=== PATIENT | male | born 1995 | race Caucasian/White ===

== ENCOUNTER 2019-09-26 12:09 | Emergency (ER) | payer MEDICAID, SELFPAY ==
[2019-09-26 12:31] VITALS: BP 134/82; PULSE 100; RESP 16; TEMP 36.9; O2SAT 97; BMI 20.6
--- NOTE | 2019-09-26 12:40 | ED_ITS ---
HPI - Psych General: Chief Complaint: Psychiatric Symptoms Stated Complaint: mhe Time Seen by Provider: 09/26/19 12:40 Source: patient Mode of arrival: ambulatory Limitations: no limitations History of Present Illness: HPI Narrative: Patient is a 24-year-old male who presents to ED today with complaints of auditory hallucinations; patient has a history of schizophrenia and states these hallucinations are chronic for him; he describes the hallucinations as chattering and cannot make out anything specific; voices are not telling him to harm himself; he is not suicidal or ho micidal; patient takes he takes Invega daily for the hallucinations; states he sees ANNIE Stephens over at [facility]; patient denies visual hallucinations MD complaint: other (auditory hallucinations ) Onset (ago): unknown (chronic ) Duration: constant Relieving factors: none Exacerbating factors: none Associated psychiatric symptoms: auditory hallucinations Associated symptoms: Reports auditory hallucinations; Deny visual hallucinations, depression, homicidal ideation or suicidal ideation Treatments prior to arrival: none Review of Systems Const: Denies: fever or chills Card: Denies: chest pain Resp: Denies: productive cough GI: Denies: abdominal pain Musc: Denies: neck pain or back pain Skin/Breast: Denies: rash Neuro: Denies: headache Psych: Reports: auditory hallucinations; Denies: anxiety, depression, visual hallucinations, suicidal ideation or homicidal ideation PFS ED PFSH: Statuses (acute, chronic, etc) shown below reflect problem list status as previously entered and may not be historically accurate Social History Smoking and tobacco status: current every day smoker Physical Exam Const: COMMON NORMALS: no apparent distress, average body habitus, oriented x3, healthy appearing, alert and well nourished Resp: COMMON NORMALS: normal respiratory effort and clear to auscultation bi laterally AUSCULTATION: clear to auscultation bilaterally Cardio: COMMON NORMALS: regular rate and regular rhythm RATE: regular rate RHYTHM: regular rhythm Neuro: COMMON NORMALS: oriented x3 SENSORIUM/ORIENTATION: Yes alert Psych: COMMON NORMALS: mental status grossly normal, cooperative, speech normal, activity/motor behavior normal, denies homicidal ideation and denies suicidal ideation APPEARANCE: Yes grossly normal ATTITUDE: Yes calm ACTIVITY/MOTOR BEHAVIOR: Yes appropriate eye contact SPEECH: Yes normal speech Skin: COMMON NORMALS: no rashes or lesions noted GENERAL SKIN EXAM: no rashes or lesions noted MDM - Psych MDM Narrative: Medical decision making narrative: pt is not suicidal or homicidal; voices are not commanding pt; spoke to his [facility] provider and he agrees to call today/tmrw to schedule sooner appointment Discharge Plan Discharge Patient Disposition: Home, Self-Care Clinical Impression: Chronic schizophrenia Condition: Stable Prescriptions: No Action amoxicillin 500 mg Capsule 500 mg PO TID RF: 0 pantoprazole 40 mg Tablet,Delayed Release (Dr/Ec) 40 mg PO DAILY RF: 0 Invega 6 mg Tablet Extended Release 24hr 12 mg PO QAM RF: 0 Discharge Orders: Discharge Order (Routine); Ordered 09/26/19 Ordered By: Tessy Gudino Discharge Diet: Usual diet Discharge Activity: Resume usual activity Activity Restrictions/Additional Instructions: As discussed please call [facility] today or tomorrow to schedule a sooner follow-up visit with your provider. Return to emergency department immediately for suicidal or homicidal thoughts. Discharge Date/Time: 09/26/19 14:30 Coding Level of Care Code ED Educational Institution Curator for Froy Lozano Exam Problem Focused
--- NOTE | 2019-09-26 12:49 | PC.NURSE ---
denies si or hi, is calm and appropriate.
[2019-09-26 14:30] VITALS: PULSE 101; RESP 15; O2SAT 96
--- NOTE | 2019-09-27 13:50 | DCPLANNER ---
credit control manager called to confirm that patient followed up with [facility] as he was told to in discharge. Patient was seen at [facility] today, 09.27.19.
== END 2019-09-26 14:30 | disposition home or self-care (01) ==
PROVIDERS: Emergency Provider Emergency Medicine
DX: F20.89 Other schizophrenia (principal); F17.210 Nicotine dependence, cigarettes, uncomplicated
CPT/HCPCS: 99284

== ENCOUNTER → 2019-11-03 13:41 | Outpatient (BNVA) | payer MEDICAID, SELFPAY | PROVIDERS: PCP Nurse Practitioner; Visit Provider Nurse Practitioner | DX: F20.89 Other schizophrenia (principal) | CPT/HCPCS: 99214 ==

== ENCOUNTER 2019-12-12 16:59 | Emergency (ER) | payer MEDICAID, SELFPAY | END 2019-12-12 19:18 | disposition admitted as inpatient to this hospital (09) | LOC: ER 12-26 09:12 | PROVIDERS: Emergency Provider Nurse Practitioner Family; PCP Nurse Practitioner | DX: F15.20 Other stimulant dependence, uncomplicated (principal); F20.9 Schizophrenia, unspecified; F17.210 Nicotine dependence, cigarettes, uncomplicated | CPT/HCPCS: 12345; 36415; 80053; 80307; 84443; 85025; 99284; 99285 ==

== ENCOUNTER 2019-12-12 16:59 | Inpatient (IN) | payer MEDICAID, SELFPAY ==
[2019-12-12 17:01] VITALS: BP 127/87; PULSE 117; RESP 17; TEMP 36.5; O2SAT 95
--- NOTE | 2019-12-12 17:06 | ED_ITS ---
HPI - Psych General: Chief Complaint: Psychiatric Symptoms Stated Complaint: 96 hour hold Time Seen by Provider: 12/12/19 17:06 Source: patient Mode of arrival: ambulatory Limitations: no limitations History of Present Illness: HPI Narrative: 24-year-old male patient was brought in by Manager Transfer's department under a 96-hour hold. Affidavits are noted from the family that patient has been threatening towards them and acting out, making them feel unsafe in their home. 96-hour hold is signed by the lithographers printer. Patient reports that he has been not taking his medicine as he should be which includes his Zyprexa. Patient reports that he has had increased voice hallucinations which he describes as chattering. Patient has a history of chronic schizophrenia and substance abuse, methamphetamines. Patient denies recent use of methamphetamines. Patient denies any other drug or alcohol use. Patient is cooperative. Patient is hyperactive. Patient appears in no pain. 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, unspecified Other stimulant dependence, uncomplicated Social History (Updated 09/27/19 @ 12:26 by Divine Olvera LPN) Smoking and tobacco status: current every day smoker cigarettes Packs smoked per day: 1 Smoking risk assessment/counseling performed?: Yes Tobacco counseling given: counseling >3 minutes Physical Exam Const: COMMON NORMALS: no apparent distress and oriented x3 GENERAL APPEARANCE: cooperative HENMT: COMMON NORMALS: normocephalic, external ears normal, EAC's normal, TM's normal bilaterally and external nose normal HEAD & SCALP: normal to inspection and normocephalic FACE & SINUS: normal facial exam NOSE: external nose normal GENERAL EAR: hearing not grossly impaired EXTERNAL EAR: Yes external ears normal EXTERNAL AUDITORY CANAL: EAC's normal TYMPANIC MEMBRANE: TM's normal bilaterally MOUTH: oral and palatal mucosa abnormal (dry in appearance) THROAT: posterior oropharynx normal Eye: COMMON NORMALS: PERRL and EOMs intact bilaterally PUPIL: Yes PERRL Neck/C-Spine: COMMON NORMALS: full ROM and no lymphadenopathy Lymph: LYMPHATIC: no lymphedema noted Chest: COMMONS NORMALS: inspection of chest normal and palpation of chest normal Resp: COMMON NORMALS: normal respiratory effort and clear to auscultation bilaterally AUSCULTATION: clear to auscultation bilaterally Cardio: COMMON NORMALS: regular rate and regular rhythm RATE: regular rate RHYTHM: regular rhythm GI: COMMON NORMALS: normal to inspection, nondistended, normoactive bowel sounds and non-tender : COMMON NORMALS: Yes no CVA tenderness BLADDER/KIDNEY EXAM: Yes no CVA tenderness Back/Pelvis: COMMON NORMALS: no CVA tenderness and thoracic and lumbar spine normal to inspection Extremity: COMMON NORMALS: normal to inspection GENERAL: No edema Neuro: COMMON NORMALS: oriented x3, moves all extremities and no focal motor deficits Psych: COMMON NORMALS: mental status grossly normal and cooperative Skin: COMMON NORMALS: no rashes or lesions noted GENERAL SKIN EXAM: no rashes or lesions noted MDM - Psych MDM Narrative: Medical decision making narrative: Patient come in by Manager Transfer's department with a 96-hour hold order. Patient states he has not been taking his med routinely and has been hearing more auditory hallucinations. Patient reports taking his Zyprexa this morning but it has not made much of a change in the chattering he has heard. Patient is also as reported by his family on affidavits has been threatening towards him and they feel unsafe in their home. Patient denies any recent drug use but has a history of methamphetamine use. Differential diagnosis includes schizophrenia, acute psychosis, homicidal thoughts, major depressive disorder, substance abuse. Laboratory values were may be suggestive for some mild dehydration but other than that patient labs were fairly normal. Thyroid level was normal. EtOH salicylates and acetaminophen were all normal. Reviewed case with Dr. Mendoza, psychiatrist, he agreed to admission to hospital for further evaluation and treatment. Patient for the safety of others needs admission to the hospital and for medica tion management. Lab Data: Labs: Lab Results 12/12/19 12/12/19 Range/Units 17:28 17:28 WBC 11.5 H (4.0-10.0) 10^3/ uL RBC 5.61 H (4.1-5.3) 10^6/u L Hgb 18.0 H (11.7-16.6) g/dL Hct 51.7 (42.0-52.0) % MCV 92.2 (80-94) fL MCH 32.1 (28.0-34.0) pg MCHC 34.8 (30.0-36.0) g/dL RDW 11.5 L (12.1-15.1) % Plt Count 289 (130-400) 10^3/c mm MPV 10.8 H (7.4-10.4) fL Neut % (Auto) 55.8 % Lymph % (Auto) 32.5 % Ashley % (Auto) 9.2 % Eos % (Auto) 1.3 % Baso % (Auto) 1.0 % Neut # (Auto) 6.5 (1.8-7.7) 10^3/u L Lymph # (Auto) 3.8 (0.8-4.8) 10^3/u L Ashley # (Auto) 1.1 H (0.2-0.9) 10^3/u L Eos # (Auto) 0.2 (0.0-0.8) 10^3/u L Baso # (Auto) 0.1 (0.0-0.1) 10^3/u L Nucleated RBC % (a uto) 0 % Nucleated RBCs # 0.0 /100WBC Sodium 140 (136-145) mmol/L Potassium 4.0 (3.5-5.1) mmol/L Chloride 100 (98-107) mmol/L Carbon Dioxide 20 L (22-29) mmol/L Anion Gap 24.0 H (5-19) BUN 14 (6-20) mg/dL Creatinine 1.0 (0.7-1.2) mg/dL GFR Calculation 92.6 (90-130) mL/min Glucose 93 (65-115) mg/dL Calculated Osmolal ity 286 (285-295) mOsm/k g Calcium 10.2 (8.5-10.5) mg/dL Total Bilirubin 1.1 (0.15-1.2) mg/dL AST 19 (0-40) U/L ALT 15 (0-41) U/L Alkaline Phosphata se 102 (40-130) IU/L Total Protein 8.5 (6.6-8.7) g/dL Albumin 5.1 (3.5-5.2) g/dL Globulin 3.4 (1.3-4.6) g/dL TSH 2.94 (0.27-4.20) uIU/ mL Salicylates < 0.3 L (3-10) mg/dL Acetaminophen < 5.0 L (10-30) ug/mL Ethyl Alcohol < 10 (0-10) mg/dL Discharge Plan Discharge Prescriptions: No Action olanzapine [Zyprexa] 15 mg tablet 15 mg PO DAILY Qty: 30 RF: 1 pantoprazole 40 mg tablet,delayed release (DR/EC) 40 mg PO DAILY Qty: 30 RF: 1 Coding Level of Care Code ED Fisheries Management Biologist for Chg Fwd Exam Comprehensive
[2019-12-12 17:42] LABS: Basophils # 0.1 10^3/uL (0.0-0.1); Eosinophils # 0.2 10^3/uL (0.0-0.8); Eosinophils % 1.3 %; Hematocrit 51.7 % (42.0-52.0); Lymphocytes # 3.8 10^3/uL (0.8-4.8); Lymphocytes % 32.5 %; Mean Corpuscular HGB Conc 34.8 g/dL (30.0-36.0); Mean Corpuscular Hemoglobin 32.1 pg (28.0-34.0); Mean Corpuscular Volume 92.2 fL (80-94); Mean Platelet Volume 10.8 fL (7.4-10.4); Monocytes # 1.1 10^3/uL (0.2-0.9); Monocytes % 9.2 %; Neutrophils # 6.5 10^3/uL (1.8-7.7); Neutrophils % 55.8 %; Nucleated Red Blood Cells % 0 %; Platelet Count 289 10^3/cmm (130-400); Red Blood Count 5.61 10^6/uL (4.1-5.3); Red Cell Distribution Width 11.5 % (12.1-15.1); White Blood Count 11.5 10^3/uL (4.0-10.0)
[2019-12-12 18:07] LABS: Alanine Aminotransferase 15 U/L (0-41); Albumin Level 5.1 g/dL (3.5-5.2); Alkaline Phosphatase 102 IU/L (40-130); Aspartate Amino Transferase 19 U/L (0-40); Blood Urea Nitrogen 14 mg/dL (6-20); Calcium 10.2 mg/dL (8.5-10.5); Carbon Dioxide 20 mmol/L (22-29); Chloride 100 mmol/L (98-107); Globulin 3.4 g/dL (1.3-4.6); Glomerular Filtration Rate 92.6 mL/min (90-130); Glucose 93 mg/dL (65-115); Osmolality Calculated 286 mOsm/kg (285-295); Sodium 140 mmol/L (136-145); Thyroid Stimulating Hormone 2.94 uIU/mL (0.27-4.20); Total Bilirubin 1.1 mg/dL (0.15-1.2); Total Protein 8.5 g/dL (6.6-8.7)
[2019-12-12 18:34] LABS: Acetaminophen < 5.0 ug/mL (10-30); Alcohol Level < 10 mg/dL (0-10); Salicylate < 0.3 mg/dL (3-10)
[2019-12-12 18:48] LABS: Add Urine Microscopic? NO
[2019-12-12 19:17] VITALS: BP 119/68; PULSE 108; RESP 18; O2SAT 98
[2019-12-12 19:28] VITALS: BP 119/67; PULSE 139; RESP 19; TEMP 36.6; O2SAT 98
[2019-12-12 19:31] LABS: Amphetamines Screen Urine Positive (Negative); Barbiturates Screen Urine Negative (Negative); Benzodiazepines Screen Urine Negative (Negative); Cocaine Screen Urine Negative (Negative); Opiate Screen Urine Negative (Negative); PCP Screen Urine Negative (Negative); THC Screen Urine Negative (Negative)
[2019-12-12 19:47] LABS: Glucose Urine UA Norm (Normal); Protein Urine Neg (Negative); Specific Gravity, Urine 1.025 (1.005-1.030); Urine Appearance Clear (CLEAR); Urine Color Yellow (Yellow); pH Urine 5 (5-7)
[2019-12-12 19:48] LABS: Bilirubin Urine 1+ (NEGATIVE); Blood Urine Neg (Negative); Ketones Urine 3+ (Negative); Leukocyte Esterase Urine Negative (Negative); Nitrate Urine Negative (Negative); Urobilinogen Urine 1 mg/dL (Negative)
[2019-12-12 20:39] VITALS: BP 119/67; PULSE 139; RESP 19; TEMP 36.6; O2SAT 98
[2019-12-13 06:00] VITALS: BP 109/78; PULSE 66; RESP 18; TEMP 36.7; O2SAT 97
--- NOTE | 2019-12-13 10:52 | PM.NHP ---
Providers/Chief Complaint Admitting Physician: Raul Mendoza MD Primary Care Provider: ANNIE Blakely Chief Complaint: 96 hour hold HPI NPU History of Present Illness Landry Coates is a 24 year old male The patient presents today reporting that he has a long history of psychosis as well as addiction, which is currently active. He presented to the emergency room endorsing that he had been off of his medication, and he has been struggling with his addiction. He was open to the idea of exploring a long acting injectable, with hopes that he could not worry about daily dosing, which might improve his adherence as well as his disease progression. We discussed the risks, benefits, and alternatives of resuming Invega, which he had successfully taken in the past, and he understood and agreed to proceed as is documented in this note. We reviewed his most recent evaluation which was in December of 2018, and he endorsed that the psycho-social information was valid. He is a limited historian, at this time. Per last [facility] dc summary: Discharge Summary Date of Admission: Dec 26, 2018 at 14:25 Discharge Date: Jan 09, 2019 Attending Physician: Gladis De La Fuente M.D.; Sanjay Acevedo MD Consulting Physician(s): Discharge Diagnosis: (1) Schizophrenia, paranoid type Status: Chronic (2) Methamphetamine abuse Status: Chronic (3) Noncompliance Status: Chronic Brief History: HPI: Landry Coates is a 23-year-old male who presents for his 13th admission to a psychiatric unit. [facility] in the past 24 months. I do not have access to the emergency room notes. However the according to records, the patient arrived with the police after being picked up for some sort of aggressive behavior. The patient himself denies that there was any problem. He denies that he has a psychiatric problem. He denies that he has used any type of methamphetamine or other substances. He claims that he does not know Emma Sevilla. He admits that Inge Jennings is his mother but claims that the things that she said in her affidavit are untrue. The patient is basically not communicating other than to say that he does not feel he has a problem does not feel he needs to be here. He says I want off of my medication. When asked about that medication he said he didn't know the name said that started with H. He was started on Haldol during his last admission 3 weeks ago. I began asking him questions such as hasn't helped you and were there any side effects . He reported that he never even open the bottle so he has not been taking his medication anyway. Patient then became noncommunicative and would not answer questions. Close to discharge her affidavits by Ms. Jennings and Ms. Sevilla. His mother reports that she feels he is going to kill himself or herself and her . He is not taking medications. He has been neglectful of hygiene she describes him as hypervigilant she states that they have to sleep in her bathroom door locked at night. Ms. Sevilla states that his [employer] has changed since his last admission. He is not taking his medications. I don't feel safe in my home, ever, I fear that he is going to harm me or my father and even stepmother if she has to get in his way. She describes him as dangerous, aggressive, and that I'm scared to even have to step back into the home with him there. Patient has a well-documented history of schizophrenia and drug abuse. He was hospitalized in January 2017 for 21 days, February 2017 for 5 days, June 2017 for 4 days, June 2017 3 days, July 2017 for 4 days, August 2017 for 6 days, September 2017 for 2 days, December 2017 for 6 days, December 2017 for 2 days, February 2018 for 5 days. Then today he was free of admissions for the next 8 months before being rehospitalized early last month for 3 days and at the end of last month for 3 days. He was admitted on 12/07/2018 and given the diagnoses: (1) Schizophrenia, paranoid type Status: Chronic (2) Methamphetamine abuse Status: Chronic (3) Anxiety Status: Chronic (4) Nicotine dependence, cigarettes, uncomplicated Status: Chronic (5) Noncompliance Status: Chronic He was discharged on oral Haldol. Social history: Patient is not interacting verbally providing any information. He appears to live with his mother, stepfather, and stepsister. He is unemployed. Family psychiatric history: Unknown Past Medical History Past Medical History: Patient is not cooperative with exam. Emergency room records indicate a history of heavy tobacco use but no other medical problems. Data Labs reviewed by provider: Item Value Date Time Urine Opiates Screen NEGATIVE ng/mL 12/26/18 1335 Urine Barbiturates Screen NEGATIVE ng/mL 12/26/18 1335 Urine Phencyclidine Screen NEGATIVE ng/mL 12/26/18 1335 Urine Amphetamines Screen NEGATIVE ng/mL 12/26/18 1335 Urine Benzodiazepines Screen NEGATIVE ng/mL 12/26/18 1335 Urine Cocaine Screen NEGATIVE ng/mL 12/26/18 1335 Urine Marijuana (THC) Screen NEGATIVE ng/mL 12/26/18 1335 Result Diagram: 12/26/18 1311 12/26/18 1311 document embedded image Admission Assessment/Problem List Assessment/Problem List Other Assessment/Problem List: (1) Schizophrenia, paranoid type Status: Acute (2) Methamphetamine abuse Status: Chronic (5) Noncompliance Status: Acute Hospital Course: The patient was admitted to the hospital inpatient psychiatric unit. He was provided a safe, supportive environment and encouraged to participate in individual, group, recreational, and milieu psychotherapies. Staff worked with him on positive coping skills. Medications were reviewed and adjustments were made based on the patient's symptoms and response to treatment. Initially 96 hour hold was discontinued and 21 day hold filed/improved. Patient was started on Invega titrated to 9 mg daily for psychosis/mood stabilization which he tolerated without problems. Staff attempted to obtain collateral information and network with the patient's family regarding his overall status and discharge planning. No family member answered the phone during daily calls to network with them. Affidavits were reviewed which indicated that the patient had ongoing noncompliance with medications at home, chronic self-care deficits, intermittent anger/verbal aggression issues. Family had indicated that they were wanting placement for the patient but had never failed to file for guardianship as recommended by the treatment team during numerous prior psychiatric admissions. As such, the treatment team did agree to file in favor of guardianship with a state appointed guardian. As the patient was still his own guardian, refused placement with no payor source, and had returned to his baseline functioning, he was discharged home. Care management was consulted for medication assistance and discharge planning including recommendation for an outpatient telehealth case manager. Disposition: discharge patient home with local mental Health Center follow-up for medication management/therapy/case management strongly recommended. Care management to assist with discharge planning. Condition at Discharge: Stable. At time of discharge, the patient was ambulating and taking oral medications without difficulty. He was tolerating all medications without side effects or adverse reactions. He reported improvement in symptoms and resolution of mood lability, self-care failure, and auditory hallucinations. New Medications: Paliperidone Tab (Invega Tab) 9 Mg Tab.osm.24 9 MG PO DAILY, #14 TAB 2 Refills Discontinued Medications: Haloperidol Tab (Haldol Tab) 5 Mg Tablet 5 MG PO DAILY PRN for agitation/psychosis, #14 TAB 2 Refills Hydroxyzine Pamoate Cap (Vistaril Cap) 25 Mg Capsule 25 MG PO QID PRN for FOR ANXIETY, CAP Meds NPU Home Medications Medication Instructions Recorded Confirmed Type paliperidone 6 mg PO BID 12/13/19 12/13/19 History Allergies Allergy/AdvReac Type Severity Reaction Status Date / Time No Known Allergies Allergy Verified 09/26/19 12:37 [facility] NPU PFSH: Medical History (Updated 12/14/19 @ 15:05 by Raul Mendoza MD) Other schizophrenia 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 No abnormal movements. Cooperative with exam in no acute distress. Speech was decreased rate and volume. Mood described as okay; affect subdued. Thought process, organized. Thought content: patient denied any suicidal or homicidal ideation, there were no delusions reported or noted, patient denied any auditory or visual hallucinations. Attention and concentration appeared intact, and memory was unreliable, but none were formally tested. He is alert and oriented times three. Insight and judgment are impaired. Vitals/I&O/Wt Last Vital Signs Temp 98.4 F 12/13/19 20:15 Pulse 83 12/13/19 20:15 Resp 16 12/13/19 20:15 BP 111/71 12/13/19 20:15 Pulse Ox 97 12/13/19 20:15 Weight last 48 hrs Weight 63.503 kg Data NPU : 12/12/19 17:28 12/12/19 17:28 A&P Assessment and plan (1) Schizophrenia: Status: Acute (2) Methamphetamine dependence: Status: Acute Additional A&P Information This is a 24 year old, white male, with a long history of mental health and addiction issues with frequent hospitalizations and a diagnosis of schizophrenia, with some clear beliefs that the psychosis he experiences is not just a product of the methamphetamine, although it is likely a co-conspirator in this decompensation and his psychosis. Continue current medication, except: Will start Invega 6 mg po qam, and make a decision of whether we can get rid of the Zyprexa with the hopes of getting him on the long acting injectable, and possibly gaining adherence which might portend a better outcome. Encourage individual, group, and milieu therapy. Continue q-15 minute checks for safety. Encourage discharge to sober living treatment at the highest level of care to which he is willing to commit. Involuntary Hold Information 96 Hour Hold: 96 Hour Involuntary Admission: Yes 96 Hour Hold Ending Date: 12/18/19 96 Hour Hold Ending Time: 16:59 Attestations NPU Medical Necessity Statement*: Inpatient hospitalization is medically necessary and the clinically appropriate intervention at this time. He will be in the hospital for over two midnights. We will monitor medications and adjust as indicated. Likely length of stay is three to five days. Coding Level of Care Code Acute Industrial Boilermaker for Froy Lozano Diagnoses Schizophrenia F20.9 Methamphetamine dependence F15.20
[2019-12-13 14:00] VITALS: BP 130/78; PULSE 78; RESP 20; TEMP 37; O2SAT 98
[2019-12-13 20:15] VITALS: BP 111/71; PULSE 83; RESP 16; TEMP 36.9; O2SAT 97
[2019-12-13] MEDS: OLANZapine 10 mg TABLET PO (20:41)
[2019-12-14 06:00] VITALS: BP 102/67; PULSE 70; RESP 16; TEMP 36.4; O2SAT 96
[2019-12-14 14:00] VITALS: BP 108/65; PULSE 82; RESP 16; TEMP 36.8; O2SAT 97
--- NOTE | 2019-12-14 15:06 | PM.NPN ---
Subjective NPU Subjective: Interval history: Landry presents today mostly focused on being able to be discharged. We discussed restarting his Invega as he had reportedly been on 6 mg twice a day, possibly, as well as Zyprexa, but he was really unclear and confused about timelines. We also discussed increasing his Zyprexa once we confirmed some doses, as he is a fairly poor historian right now and fairly disorganized in his questions, and he is having a really tough time finding words as he talks and explains different things. He was focused on when he could be discharged, I made sure that he understood that he is on a 96-hour hold and we went and looked and he was able to identify that his hold is not up until Wednesday. He was really focused on not missing any more days of work, and we talked about the fact that it would appear that he needs to be in a better condition to be able to function at work; he works at [email or web address]. He reports that he is sleeping okay and is eating fine. Mental Status Exam MSE Comments: This is a slender, white male, with limited dress, grooming, and eye contact. No abnormal movements. Cooperative with exam in no acute distress. Speech was increased rate and volume and a bit scattered. Mood described as good; affect nervous. Thought process, disorganized with word finding issues characterized by making general phrases for the words he was unable to locate. Thought content: patient denied any suicidal or homicidal ideation, there were no delusions reported or noted, patient denied any auditory or visual hallucinations. Attention and concentration appeared intact, and memory was unreliable, but none were formally tested. He is alert and oriented times three. Insight and judgment are impaired. Vitals/I&O/Wt Last Vital Signs Temp 97.5 F L 12/14/19 06:00 Pulse 70 12/14/19 06:00 Resp 16 12/14/19 06:00 BP 102/67 12/14/19 06:00 Pulse Ox 96 12/14/19 06:00 Home Medications olanzapine 15 mg tablet 15 mg PO DAILY #30 tab 11/03/19 [Rx Confirmed 12/12/19] pantoprazole 40 mg tablet,delayed release 40 mg PO DAILY #30 tab 11/03/19 [Rx Confirmed 12/12/19] paliperidone 6 mg PO BID 12/13/19 [History Confirmed 12/13/19] Active Medications Acetaminophen (Tylenol) 650 mg PO Q4H PRN PRN Reason: MILD PAIN Benztropine Mesylate (Cogentin) 1 mg PO BID PRN PRN Reason: Mild Extrapyramidal symptoms Camphor/Menthol/Phenol (Blistex) 1 applic TOPICAL Q1H PRN PRN Reason: DRYNESS Diphenhydramine HCl (Benadryl) 50 mg IM ONCE PRN PRN Reason: Severe Extrapyramidal Symptoms Diphenhydramine HCl (Benadryl) 50 mg IM Q4H PRN PRN Reason: Severe Aggression Haloperidol (Haldol) 5 mg PO Q4H PRN PRN Reason: AGITATION Haloperidol Lactate (Haldol Inj) 5 mg IM Q4H PRN PRN Reason: Severe Aggression Hydroxyzine Pamoate (Vistaril) 50 mg PO Q6H PRN PRN Reason: ANXIETY Loperamide HCl (Imodium Capsule) 2 mg PO Q6H PRN PRN Reason: DIARRHEA Lorazepam (Ativan) 2 mg IM Q4H PRN PRN Reason: Severe Aggression Nicotine (Nicoderm 21 Mg Patch) 1 patch TRANSDERMA DAILY PRN PRN Reason: NICOTINE WITHDRAWAL Nicotine Polacrilex (Nicorette) 2 mg BUCCAL Q2H PRN PRN Reason: NICOTINE WITHDRAWAL Olanzapine (Zyprexa Zydis) 5 mg PO Q4H PRN PRN Reason: Agitation/Psychosis Olanzapine (Zyprexa) 10 mg PO BEDTIME REHAN Last Admin: 12/13/19 20:41 Dose: 10 mg Documented by: Ondansetron HCl (Zofran) 4 mg PO Q6H PRN PRN Reason: NAUSEA AND VOMITING Trazodone HCl (Desyrel) 50 mg PO BEDTIME PRN PRN Reason: SLEEP Weight last 48 hrs Weight 63.503 kg Data NPU : 12/12/19 17:28 12/12/19 17:28 A&P Additional A&P Information This is a 24 year old, white male, with a long history of mental health and addiction issues with frequent hospitalizations and a diagnosis of schizophrenia, with some clear beliefs that the psychosis he experiences is not just a product of the methamphetamine, although it is likely a co-conspirator in this decompensation and his psychosis. Continue current medication, except: Will start Invega 6 mg po qam as he has finally agreed to restart, and make a decision of whether we can get rid of the Zyprexa with the hopes of getting him on the long acting injectable, and possibly gaining adherence which might portend a better outcome. Encourage individual, group, and milieu therapy. Continue q-15 minute checks for safety. Encourage discharge to sober living treatment at the highest level of care to which he is willing to commit. Involuntary Hold Information 96 Hour Hold: 96 Hour Involuntary Admission: Yes 96 Hour Hold Ending Date: 12/18/19 96 Hour Hold Ending Time: 16:59 Attestations NPU Medical Necessity Statement*: Inpatient hospitalization is medically necessary and the clinically appropriate intervention at this time. We will monitor medications and adjust as indicated. Likely length of stay is 3-5 days. Coding Level of Care Code Acute Field Clinical Engineer for Froy Lozano
[2019-12-14] MEDS: OLANZapine 10 mg TABLET PO (20:04)
[2019-12-14 21:02] VITALS: BP 105/67; PULSE 86; RESP 17; TEMP 36.7; O2SAT 94
[2019-12-15 06:00] VITALS: BP 111/73; PULSE 95; RESP 16; TEMP 36.6; O2SAT 97
[2019-12-15] MEDS: paliperidone ER 6 mg Tablet PO (08:37)
[2019-12-15 14:00] VITALS: BP 117/73; PULSE 89; RESP 17; TEMP 36.4; O2SAT 95
--- NOTE | 2019-12-15 15:31 | PM.NPN ---
Subjective NPU Subjective: Interval history: Landry presents today still having clear disorganization and appearing confused. Staying in his bed more but reporting that he feels like the Invega is helping. We discussed the possibility of considering an injection. He was not diametrically opposed to that. Additionally we talked about the fact that his history suggests that he was ultimately on 12 mg a day and he was not really able to confirm that nor did he deny it. We talked about his anxiety about when he might be discharged and we agreed that if he continued to make progress and was well enough that we would discharge him on Wednesday when his 96-hour hold finished. Mental Status Exam MSE Comments: This is a slender, white male, with limited dress, grooming, and eye contact. No abnormal movements. Cooperative with exam in no acute distress. Speech was more normal rate and volume and a bit scattered. Mood described as pretty good; affect nervous. Thought process, disorganized with word finding issues characterized by making general phrases for the words he was unable to locate though with some improvement. Thought content: patient denied any suicidal or homicidal ideation, there were no delusions reported or noted but he did appear paranoid, patient denied any auditory or visual hallucinations. Attention and concentration appeared intact, and memory was unreliable, but none were formally tested. He is alert and oriented times three. Insight and judgment are impaired. Vitals/I&O/Wt Last Vital Signs Temperature 97.9, pulse 95, respirations 16, pulse ox 97%, blood pressure 111/73. Data NPU : 12/12/19 17:28 12/12/19 17:28 A&P Additional A&P Information This is a 24 year old, white male, with a long history of mental health and addiction issues with frequent hospitalizations and a diagnosis of schizophrenia, with some clear beliefs that the psychosis he experiences is not just a product of the methamphetamine, although it is likely a co-conspirator in this decompensation and his psychosis. Continue current medication, except: Encourage individual, group, and milieu therapy. Continue q-15 minute checks for safety. Encourage discharge to sober living treatment at the highest level of care to which he is willing to commit. Involuntary Hold Information 96 Hour Hold: 96 Hour Involuntary Admission: Yes 96 Hour Hold Ending Date: 12/18/19 96 Hour Hold Ending Time: 16:59 Attestations NPU Medical Necessity Statement*: Inpatient hospitalization is medically necessary and the clinically appropriate intervention at this time. We will monitor medications and adjust as indicated. Likely length of stay is 2-4 days. Coding Level of Care Code Acute Reinforcing Steel Worker Wire Mesh for Froy Lozano
[2019-12-15] MEDS: OLANZapine 10 mg TABLET PO (20:46)
[2019-12-15 21:38] VITALS: BP 109/71; PULSE 85; RESP 17; TEMP 36.7; O2SAT 94
[2019-12-16 06:00] VITALS: BP 107/69; PULSE 74; RESP 16; TEMP 36.6; O2SAT 96
[2019-12-16] MEDS: paliperidone ER 6 mg Tablet PO (08:40)
--- NOTE | 2019-12-16 10:38 | P.PN_ITS ---
Subjective NPU Subjective: Interval history: Landry presented today looking a lot calmer and less anxious. His nervous somewhat scattered speech was dissipating. He was continuing to be interested in being discharged so he can go back to work on Wednesday but seem much calmer about the subject. We continue to talk about his medication and how to ensure that he remains stable. He is still expressing an openness to consider an injection of the Invega. We discussed the polypharmacy of the Zyprexa and the Invega and agreed to continue the conversation up until discharged to decide what is the best approach. Mental Status Exam MSE Comments: This is a slender, white male, with improved dress, grooming, and eye contact. No abnormal movements. Cooperative with exam in no acute distress. Speech was more normal rate and volume and less scattered. Mood described as pretty good; affect less anxious appearing. Thought process, more organized. Thought content: patient denied any suicidal or homicidal ideation, there were no delusions reported and he appeared less paranoid, patient denied any auditory or visual hallucinations. Attention and concentration appeared intact, and memory was unreliable, but none were formally tested. He is alert and oriented times three. Insight and judgment are impaired. Vitals/I&O/Wt Last Vital Signs Temp 98.6 F 12/16/19 21:35 Pulse 68 12/16/19 21:35 Resp 18 12/16/19 21:35 BP 106/66 12/16/19 21:35 Pulse Ox 94 12/16/19 21:35 Home Medications olanzapine 15 mg tablet 15 mg PO DAILY #30 tab 11/03/19 [Rx Confirmed 12/12/19] pantoprazole 40 mg tablet,delayed release 40 mg PO DAILY #30 tab 11/03/19 [Rx Confirmed 12/12/19] paliperidone 6 mg PO BID 12/13/19 [History Confirmed 12/13/19] Active Medications Acetaminophen (Tylenol) 650 mg PO Q4H PRN PRN Reason: MILD PAIN Benztropine Mesylate (Cogentin) 1 mg PO BID PRN PRN Reason: Mild Extrapyramidal symptoms Camphor/Menthol/Phenol (Blistex) 1 applic TOPICAL Q1H PRN PRN Reason: DRYNESS Diphenhydramine HCl (Benadryl) 50 mg IM ONCE PRN PRN Reason: Severe Extrapyramidal Symptoms Diphenhydramine HCl (Benadryl) 50 mg IM Q4H PRN PRN Reason: Severe Aggression Haloperidol (Haldol) 5 mg PO Q4H PRN PRN Reason: AGITATION Haloperidol Lactate (Haldol Inj) 5 mg IM Q4H PRN PRN Reason: Severe Aggression Hydroxyzine Pamoate (Vistaril) 50 mg PO Q6H PRN PRN Reason: ANXIETY Loperamide HCl (Imodium Capsule) 2 mg PO Q6H PRN PRN Reason: DIARRHEA Nicotine (Nicoderm 21 Mg Patch) 1 patch TRANSDERMA DAILY PRN PRN Reason: NICOTINE WITHDRAWAL Nicotine Polacrilex (Nicorette) 2 mg BUCCAL Q2H PRN PRN Reason: NICOTINE WITHDRAWAL Olanzapine (Zyprexa Zydis) 5 mg PO Q4H PRN PRN Reason: Agitation/Psychosis Olanzapine (Zyprexa) 10 mg PO BEDTIME REHAN Last Admin: 12/16/19 20:37 Dose: 10 mg Documented by: Ondansetron HCl (Zofran) 4 mg PO Q6H PRN PRN Reason: NAUSEA AND VOMITING Trazodone HCl (Desyrel) 50 mg PO BEDTIME PRN PRN Reason: SLEEP Data NPU : 12/12/19 17:28 12/12/19 17:28 A&P Additional A&P Information This is a 24 year old, white male, with a long history of mental health and addiction issues with frequent hospitalizations and a diagnosis of schizophrenia, with some clear beliefs that the psychosis he experiences is not just a product of the methamphetamine, although it is likely a co-conspirator in this decompensation and his psychosis. Continue current medication, except: Encourage individual, group, and milieu therapy. Continue q-15 minute checks for safety. Encourage discharge to sober living treatment at the highest level of care to which he is willing to commit. Involuntary Hold Information 96 Hour Hold: 96 Hour Involuntary Admission: Yes 96 Hour Hold Ending Date: 12/18/19 96 Hour Hold Ending Time: 16:59 Attestations NPU Medical Necessity Statement*: Inpatient hospitalization is medically necessary and the clinically appropriate intervention at this time. We will monitor medications and adjust as indicated. Likely length of stay is 2-4 days. Coding Level of Care Code Acute E Mail System Administrator for Froy Lozano
[2019-12-16 14:00] VITALS: BP 150/86; PULSE 80; RESP 17; TEMP 36.6; O2SAT 97
[2019-12-16 14:58] VITALS: BP 110/73
[2019-12-16] MEDS: OLANZapine 10 mg TABLET PO (20:37)
[2019-12-16 21:35] VITALS: BP 106/66; PULSE 68; RESP 18; TEMP 37; O2SAT 94
[2019-12-17 06:00] VITALS: BP 98/58; PULSE 60; RESP 17; TEMP 36.8; O2SAT 97
[2019-12-17] MEDS: paliperidone ER 6 mg Tablet PO (08:14)
--- NOTE | 2019-12-17 13:15 | P.PN_ITS ---
Subjective NPU Subjective: Interval history: Landry continues his slow but steady improvement with a focus on getting better so he can return to work. We agreed that we would give him a letter stating he had been in the hospital to avoid his concerns for possible firing. He continued to gain clearly and functionality and endorsed desire to continue with our plan for discharge tomorrow. Mental Status Exam MSE Comments: This is a slender, white male, with improved dress, grooming, and eye contact. No abnormal movements. Cooperative with exam in no acute distress. Speech was more normal rate and volume and less scattered. Mood described as pretty good; affect less anxious appearing. Thought process, more organized. Thought content: patient denied any suicidal or homicidal ideation, there were no delusions reported and he appeared less paranoid, patient denied any auditory or visual hallucinations. Attention and concentration appeared intact, and memory was unreliable, but none were formally tested. He is alert and oriented times three. Insight and judgment are impaired, but improving. Vitals/I&O/Wt Last Vital Signs Temp 98.3 F 12/17/19 06:00 Pulse 60 12/17/19 06:00 Resp 17 12/17/19 06:00 BP 98/58 12/17/19 06:00 Pulse Ox 97 12/17/19 06:00 Weight last 48 hrs Weight 68.946 kg Data NPU : 12/12/19 17:28 12/12/19 17:28 A&P Additional A&P Information This is a 24 year old, white male, with a long history of mental health and addiction issues with frequent hospitalizations and a diagnosis of schizophrenia, with some clear beliefs that the psychosis he experiences is not just a product of the methamphetamine, although it is likely a co-conspirator in this decompensation and his psychosis. Continue current medication. Encourage individual, group, and milieu therapy. Continue q-15 minute checks for safety. Encourage discharge to sober living treatment at the highest level of care to which he is willing to commit. Involuntary Hold Information 96 Hour Hold: 96 Hour Involuntary Admission: Yes 96 Hour Hold Ending Date: 12/18/19 96 Hour Hold Ending Time: 16:59 Attestations NPU Medical Necessity Statement*: Inpatient hospitalization is medically necessary and the clinically appropriate intervention at this time. We will monitor medications and adjust as indicated. Likely length of stay is 1-3 days.Likely discharge tomorrow. Coding Level of Care Code Acute Compliance Review Officer for Froy Lozano
[2019-12-17 14:00] VITALS: BP 102/58; PULSE 70; RESP 17; TEMP 36.8; O2SAT 97
[2019-12-17] MEDS: trazodone 50 mg Tablet PO (20:21)
--- NOTE | 2019-12-17 20:22 | PC.NURSE ---
Pt given scheduled Zyprexa and a prn trazodone given at this time.
[2019-12-17 21:02] VITALS: BP 107/65; PULSE 90; RESP 22; TEMP 36.9; O2SAT 97
[2019-12-18 06:00] VITALS: BP 95/56; PULSE 57; RESP 16; TEMP 36.9; O2SAT 96
[2019-12-18] MEDS: paliperidone ER 6 mg Tablet PO (08:22)
--- NOTE | 2019-12-18 12:55 | PM.NDC ---
Diagnoses at Discharge Discharge Diagnosis (1) Schizophrenia: Status: Acute (2) Methamphetamine dependence: Status: Acute Reason for Visit Reason for Visit: Reason For Visit: 96 hour hold Brief History: History of Present Illness Landry Coates is a 24 year old male The patient presents today reporting that he has a long history of psychosis as well as addiction, which is currently active. He presented to the emergency room endorsing that he had been off of his medication, and he has been struggling with his addiction. He was open to the idea of exploring a long acting injectable, with hopes that he could not worry about daily dosing, which might improve his adherence as well as his disease progression. We discussed the risks, benefits, and alternatives of resuming Invega, which he had successfully taken in the past, and he understood and agreed to proceed as is documented in this note. We reviewed his most recent evaluation which was in December of 2018, and he endorsed that the psycho-social information was valid. He is a limited historian, at this time. Per last [facility] [place] summary: Discharge Summary Date of Admission: Dec 26, 2018 at 14:25 Discharge Date: Jan 09, 2019 Attending Physician: Gladis De La Fuente M.D.; Sanjay Acevedo MD Consulting Physician(s): Discharge Diagnosis: (1) Schizophrenia, paranoid type Status: Chronic (2) Methamphetamine abuse Status: Chronic (3) Noncompliance Status: Chronic Brief History: HPI: Landry Coates is a 23-year-old male who presents for his 13th admission to a psychiatric unit. [facility] in the past 24 months. I do not have access to the emergency room notes. However the according to records, the patient arrived with the police after being picked up for some sort of aggressive behavior. The patient himself denies that there was any problem. He denies that he has a psychiatric problem. He denies that he has used any type of methamphetamine or other substances. He claims that he does not know Emma Sevilla. He admits that Inge Jennings is his mother but claims that the things that she said in her affidavit are untrue. The patient is basically not communicating other than to say that he does not feel he has a problem does not feel he needs to be here. He says I want off of my medication. When asked about that medication he said he didn't know the name said that started with H. He was started on Haldol during his last admission 3 weeks ago. I began asking him questions such as hasn't helped you and were there any side effects . He reported that he never even open the bottle so he has not been taking his medication anyway. Patient then became noncommunicative and would not answer questions. Close to discharge her affidavits by Ms. Jennings and Ms. Sevilla. His mother reports that she feels he is going to kill himself or herself and her . He is not taking medications. He has been neglectful of hygiene she describes him as hypervigilant she states that they have to sleep in her bathroom door locked at night. Ms. Sevilla states that his [employer] has changed since his last admission. He is not taking his medications. I don't feel safe in my home, ever, I fear that he is going to harm me or my father and even stepmother if she has to get in his way. She describes him as dangerous, aggressive, and that I'm scared to even have to step back into the home with him there. Patient has a well-documented history of schizophrenia and drug abuse. He was hospitalized in January 2017 for 21 days, February 2017 for 5 days, June 2017 for 4 days, June 2017 3 days, July 2017 for 4 days, August 2017 for 6 days, September 2017 for 2 days, December 2017 for 6 days, December 2017 for 2 days, February 2018 for 5 days. Then today he was free of admissions for the next 8 months before being rehospitalized early last month for 3 days and at the end of last month for 3 days. He was admitted on 12/07/2018 and given the diagnoses: (1) Schizophrenia, paranoid type Status: Chronic (2) Methamphetamine abuse Status: Chronic (3) Anxiety Status: Chronic (4) Nicotine dependence, cigarettes, uncomplicated Status: Chronic (5) Noncompliance Status: Chronic He was discharged on oral Haldol. Social history: Patient is not interacting verbally providing any information. He appears to live with his mother, stepfather, and stepsister. He is unemployed. Family psychiatric history: Unknown Past Medical History Past Medical History: Patient is not cooperative with exam. Emergency room records indicate a history of heavy tobacco use but no other medical problems. Data Labs reviewed by provider: Item Value Date Time Urine Opiates Screen NEGATIVE ng/mL 12/26/18 1335 Urine Barbiturates Screen NEGATIVE ng/mL 12/26/18 1335 Urine Phencyclidine Screen NEGATIVE ng/mL 12/26/18 1335 Urine Amphetamines Screen NEGATIVE ng/mL 12/26/18 1335 Urine Benzodiazepines Screen NEGATIVE ng/mL 12/26/18 1335 Urine Cocaine Screen NEGATIVE ng/mL 12/26/18 1335 Urine Marijuana (THC) Screen NEGATIVE ng/mL 12/26/18 1335 Result Diagram: 12/26/18 1311 12/26/18 1311 document embedded image Admission Assessment/Problem List Assessment/Problem List Other Assessment/Problem List: (1) Schizophrenia, paranoid type Status: Acute (2) Methamphetamine abuse Status: Chronic (5) Noncompliance Status: Acute Hospital Course: The patient was admitted to the hospital inpatient psychiatric unit. He was provided a safe, supportive environment and encouraged to participate in individual, group, recreational, and milieu psychotherapies. Staff worked with him on positive coping skills. Medications were reviewed and adjustments were made based on the patient's symptoms and response to treatment. Initially 96 hour hold was discontinued and 21 day hold filed/improved. Patient was started on Invega titrated to 9 mg daily for psychosis/mood stabilization which he tolerated without problems. Staff attempted to obtain collateral information and network with the patient's family regarding his overall status and discharge planning. No family member answered the phone during daily calls to network with them. Affidavits were reviewed which indicated that the patient had ongoing noncompliance with medications at home, chronic self-care deficits, intermittent anger/verbal aggression issues. Family had indicated that they were wanting placement for the patient but had never failed to file for guardianship as recommended by the treatment team during numerous prior psychiatric admissions. As such, the treatment team did agree to file in favor of guardianship with a state appointed guardian. As the patient was still his own guardian, refused placement with no payor source, and had returned to his baseline functioning, he was discharged home. Care management was consulted for medication assistance and discharge planning including recommendation for an outpatient nurse case manager. Disposition: discharge patient home with local mental Health Center follow-up for medication management/therapy/case management strongly recommended. Care management to assist with discharge planning. Condition at Discharge: Stable. At time of discharge, the patient was ambulating and taking oral medications without difficulty. He was tolerating all medications without side effects or adverse reactions. He reported improvement in symptoms and resolution of mood lability, self-care failure, and auditory hallucinations. New Medications: Paliperidone Tab (Invega Tab) 9 Mg Tab.osm.24 9 MG PO DAILY, #14 TAB 2 Refills Discontinued Medications: Haloperidol Tab (Haldol Tab) 5 Mg Tablet 5 MG PO DAILY PRN for agitation/psychosis, #14 TAB 2 Refills Hydroxyzine Pamoate Cap (Vistaril Cap) 25 Mg Capsule 25 MG PO QID PRN for FOR ANXIETY, CAP Hospital Course Hospital Course Landry presented to the emergency room with significant disorganization and suicidal thoughts. He was admitted to the neuro psych unit and medications were initiated. He slowly acclimated to the individual, group and milieu therapies provided. He tolerated the Zyprexa and Invega well with significant improvement. During the hospitalization he had routine laboratory studies which were within normal limits except for a few outliers. Additionally he had a general medical evaluation which was within normal limits and revealed no new acute processes outside of those that were identified in the emergency room. Discharge Summary At the time of discharge he denied any lethality and was absent significant psychosis. Mood and anxiety were well managed and he endorsed a plan to avoid all drugs of abuse and to follow-up with the recommended outpatient services. He was evaluated and deemed to be absent lethality and had received the maximum benefit from an inpatient hospitalization, so he was discharged. Involuntary Hold Information 96 Hour Hold: 96 Hour Involuntary Admission: Yes 96 Hour Hold Ending Date: 12/18/19 96 Hour Hold Ending Time: 16:59 Mental Status Exam MSE Comments: This is a slender, white male, with improved dress, grooming, and eye contact. No abnormal movements. Cooperative with exam in no acute distress. Speech was more normal rate and volume and less scattered. Mood described as good; affect less anxious. Thought process, more organized. Thought content: patient denied any suicidal or homicidal ideation, there were no delusions reported and he appeared less paranoid, patient denied any auditory or visual hallucinations. Attention and concentration appeared intact, and memory was more reliable, but none were formally tested. He is alert and oriented times three. Insight and judgment are limited, but improving. Discharge Data Vitals: Last Vital Signs Temp 98.4 F 12/18/19 06:00 Pulse 57 L 12/18/19 06:00 Resp 16 12/18/19 06:00 BP 95/56 12/18/19 06:00 Pulse Ox 96 12/18/19 06:00 Discharge Plan Discharge Patient Disposition: Home, Self-Care Condition: Stable Prescriptions: Continued pantoprazole 40 mg tablet,delayed release (DR/EC) 40 mg PO DAILY Qty: 30 RF: 1 Discontinued paliperidone 6 mg tablet extended release 24hr 6 mg PO BID RF: 0 No Action olanzapine [Zyprexa] 15 mg tablet 15 mg PO DAILY Qty: 30 RF: 1 Discharge Orders: Discharge Order (Routine); Ordered 12/18/19 Ordered By: Raul Mendoza Referrals: Amina Moore PMHNP [Staff Physician] - 12/29/19 2:00 pm Lori Villasenor FNP [Primary Care Provider] - Discharge Diet: Regular Discharge Activity: Resume usual activity Patient Instructions: Paliperidone (By mouth), Schizophrenia (DC), Methamphetamine Abuse (DC) Activity Restrictions/Additional Instructions: As soon as it is possible, you are encouraged to consider treatment at [facility] ([facility] [address] [address] Discharge Date/Time: 12/18/19 13:45 Discharge Attestations NPU Time Spent in Discharge Care*: less than 30 min Specific Discharge Activities: Specific discharge activities: educating patient, discussing with counter caser/social workers/dc planners, documenting/other paperwork and evaluating patient/reviewing data Coding Level of Care Code Acute Slotter Operator for Jitendrag Fwd Diagnoses Schizophrenia F20.9 Methamphetamine dependence F15.20
== END 2019-12-18 13:45 | disposition home or self-care (01) | DRG 885 ==
LOC: ER 17:10 → NP 18:58
PROVIDERS: Admitting Provider Psychiatry & Neurology Psychiatry; Emergency Provider Nurse Practitioner Family; PCP Nurse Practitioner; Visit Provider Psychiatry & Neurology Psychiatry
DX: F20.0 Paranoid schizophrenia (principal); R45.851 Suicidal ideations; F15.229 Other stimulant dependence with intoxication, unspecified; Z91.19 Patient's noncompliance with other medical treatment and regimen; R45.850 Homicidal ideations; F17.210 Nicotine dependence, cigarettes, uncomplicated; F41.9 Anxiety disorder, unspecified
CPT/HCPCS: 12345; 36415; 80053; 80306; 80307; 81003; 84443; 85025; 99284

== ENCOUNTER → 2019-12-29 08:28 | Outpatient (BNVA) | payer MEDICAID, SELFPAY | PROVIDERS: PCP Nurse Practitioner; Visit Provider Nurse Practitioner | DX: F20.9 Schizophrenia, unspecified (principal); F15.20 Other stimulant dependence, uncomplicated; F90.2 Attention-deficit hyperactivity disorder, combined type | CPT/HCPCS: 99214 ==

== ENCOUNTER → 2020-01-29 08:14 | Outpatient (BNVA) | payer MEDICAID, SELFPAY | PROVIDERS: PCP Nurse Practitioner; Visit Provider Nurse Practitioner | DX: F20.9 Schizophrenia, unspecified (principal); F15.20 Other stimulant dependence, uncomplicated | CPT/HCPCS: 99213 ==

== ENCOUNTER → 2020-03-01 07:46 | Outpatient (BNVA) | payer MEDICAID, SELFPAY | PROVIDERS: PCP Nurse Practitioner; Visit Provider Nurse Practitioner | DX: F15.20 Other stimulant dependence, uncomplicated (principal); F20.9 Schizophrenia, unspecified; F60.3 Borderline personality disorder | CPT/HCPCS: 99213 ==

== ENCOUNTER → 2020-05-08 09:09 | Outpatient (BNVA) | payer MEDICAID, SELFPAY | PROVIDERS: PCP Nurse Practitioner; Visit Provider Nurse Practitioner | DX: F20.9 Schizophrenia, unspecified (principal); F15.20 Other stimulant dependence, uncomplicated; Z79.899 Other long term (current) drug therapy | CPT/HCPCS: 99213 ==

== ENCOUNTER → 2020-07-29 08:04 | Outpatient (BNVA) | payer MEDICAID, SELFPAY | PROVIDERS: PCP Nurse Practitioner; Visit Provider Nurse Practitioner | DX: F20.9 Schizophrenia, unspecified (principal); F15.20 Other stimulant dependence, uncomplicated | CPT/HCPCS: 99213 ==

== ENCOUNTER → 2020-07-30 09:53 | Outpatient (BNVA) | payer MEDICAID, SELFPAY | PROVIDERS: PCP Nurse Practitioner; Visit Provider Nurse Practitioner | DX: Z79.899 Other long term (current) drug therapy (principal) | CPT/HCPCS: 80061; 83036 ==

== ENCOUNTER → 2020-10-21 09:20 | Outpatient (BNVA) | payer MEDICAID, SELFPAY | PROVIDERS: PCP Nurse Practitioner; Visit Provider Nurse Practitioner | DX: F20.9 Schizophrenia, unspecified (principal); F15.20 Other stimulant dependence, uncomplicated | CPT/HCPCS: 99214 ==

== ENCOUNTER 2020-11-13 16:50 | Inpatient (IN) | payer MEDICARE, MEDICAID, SELFPAY ==
[2020-11-13 16:56] VITALS: BP 139/89; PULSE 104; RESP 18; TEMP 36.5; O2SAT 98; BMI 20.3
--- NOTE | 2020-11-13 17:22 | ED_ITS ---
HPI - Psych General: Chief Complaint: Psychiatric Symptoms Stated Complaint: 96 HR HOLD Time Seen by Provider: 11/13/20 17:04 Source: patient and police Mode of arrival: other (PD) Limitations: no limitations History of Present Illness: HPI Narrative: 25-year-old male patient presents to the emergency department today in custody of [facility] under 96-hour hold. 96-hour hold was instated today, November 13, 2020. He has history of paranoid schizophrenic and PTSD with current history of methamphetamine use per mother. He was punching himself in the face and chewing the inside of his mouth to the point where 1 side was severely swollen. He was also hearing voices per statement on affidavit; patient reports hearing voices, states they are mumbling. Denies suicidal/homicidal thoughts, ideations plans upon exam. He denies illicit substance abuse. Affidavit by Geraldo Jennings stated Mr. Garcia stopped prescribed medication and starting the methamphetamine again. Family reports they are afraid of him. Afraid he is going to hurt them. They are afraid he is going to harm himself. They report he has been talking to himself There is also an additional affidavits from family members, sister eligio with similar concerns. When asked concerning swelling of the face, he denies what occurred or what caused the suspected infection to the right upper lip. Associated symptoms: Reports auditory hallucinations; Deny depression Review of Systems General: Reports: 10 or more systems reviewed and unremarkable except in HPI and below Const: Denies: fever(s), chills, fatigue, malaise, diaphoresis or change in sleep pattern Eyes: Denies: blurry vision or eye redness ENMT: Denies: throat pain, dental pain or disequilibrium Card: Denies: chest pain, palpitations or irregular heart rhythm Resp: Denies: dyspnea, productive cough, non-productive cough or wheezing GI: Denies: abdominal pain, nausea or vomiting : Denies: dysuria Musc: Denies: neck pain, back pain, joint pain, joint swelling, joint warmth or joint stiffness Skin/Breast: Reports: erythema, skin tenderness and changes in skin color; Denies: rash or pruritus Neuro: Denies: headache(s), weakness in extremities or behavioral changes Psych: Reports: mood swings, loss of interest and auditory hallucinations; Denies: anxiety, depression, sleeping less or sleeping more Michael/Lymph: Denies: easy bruising PFSH ED PFSH: Medical History On high dose antipsychotic drug therapy Other schizophrenia 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, unspecified Other stimulant dependence, uncomplicated Social History Smoking and tobacco status: current every day smoker cigarettes Packs smoked per day: 1 Smoking risk assessment/counseling performed?: Yes Tobacco counseling given: counseling >3 minutes Physical Exam Const: COMMON NORMALS: no acute distress, patient oriented x3, healthy appearing, alert and well nourished GENERAL APPEARANCE: cooperative, com fortable, well kempt, well developed and well hydrated; not anxious and not ill appearing NUTRITIONAL APPEARANCE: thin ORIENTATION/CONSCIOUSNESS: Yes awake, Yes oriented to person, Yes oriented to place and Yes oriented to time; not confused HENMT: COMMON NORMALS: normocephalic, atraumatic, EAC's normal, TM's normal bilaterally, Normal external nose present, Normal nasal mucous membranes and turbinates present and moist oral mucous membranes HEAD & SCALP: normal to inspection, normocephalic and atraumatic FACE & SINUS: sinuses nontender, erythema on the right, edema on the right, fluctuance (rt) and Facial tenderness on exam of face and sinuses on the right; no maxillary instability and no TMJ findings NOSE: Normal external nose present and Normal nasal mucous membranes and turbinates present; no Nasal discharge present NOSE IMAGE: 1. Area of fluctuance, erythema, swelling, extends to the left upper lip, large amount of purulent exudate present, Dried. EXTERNAL AUDITORY CANAL: EAC's normal TYMPANIC MEMBRANE: TM's normal bilaterally MOUTH: lip abnormal (Abscess to the right upper lip with exudate, purulent); no drooling, no muffled voice, tongue not abnormal and no TMJ findings THROAT: posterior oropharynx normal, tonsils normal and uvula midline Eye: COMMON NORMALS: Equal, round and reactive pupils present and EOMs intact bilaterally GENERAL EYE: appearance normal, both eyes and all related structures PUPIL: Yes Equal, round and reactive pupils present Neck/C-Spine: COMMON NORMALS: full ROM and no lymphadenopathy GENERAL: Yes normal visual inspection and Yes trachea midline CERVICAL SPINE: Yes cervical ROM normal Lymph: LYMPHATIC: no lymphadenopathy noted Chest: COMMONS NORMALS: normal inspection of the chest and normal palpation of entire chest wall Resp: COMMON NORMALS: normal respiratory effort, No retractions, No use of accessory muscles and clear to auscultation bilaterally EFFORT & INSPECTION: Yes able to speak in complete sentences, No labored, No retractions and No audible wheezes AUSCULTATION: clear to auscultation bilaterally Cardio: COMMON NORMALS: regular rate, regular rhythm, S1 normal heart sound present, S2 normal heart sound present and Peripheral pulses 2+ throughout RATE: regular rate RHYTHM: regular rhythm HEART SOUNDS: S1 normal heart so und present and S2 normal heart sound present PERIPHERAL PULSES: Peripheral pulses 2+ throughout GI: COMMON NORMALS: Normal to inspection, nondistended, normoactive bowel sounds present, Soft to palpation and non-tender INSPECTION: Yes normal to inspection, No abdominal distension, No central obesity and No visible peristalsis AUSCULTATION: Yes normoactive bowel sounds PALPATION: Yes Soft to palpation and No Guarding due to palpation present (GI) : COMMON NORMALS: Yes no CVA tenderness BLADDER/KIDNEY EXAM: Yes no CVA tenderness Back/Pelvis: COMMON NORMALS: no CVA tenderness, thoracic and lumbar spine normal to inspection, no thoracic nor lumbar tenderness, thoraco-lumbar ROM n ormal and straight leg raise negative bilaterally Extremity: COMMON NORMALS: normal to inspection, full ROM, capillary refill normal, no clubbing, cyanosis or edema, no calf tenderness and no pedal edema GENERAL: Yes normal exam except as noted Neuro: COMMON NORMALS: patient oriented x3 and no focal motor deficits SENSORIUM/ORIENTATION: Yes alert, Yes oriented to person, Yes oriented to place and Yes oriented to time SPEECH: speech normal GAIT: Yes Normal gait present MOTOR EXAM: 5/5 motor strength present throughout Right pupil size (mm): 5 Left pupil size (mm): 5 Psych: COMMON NORMALS: mental status grossly normal, cooperative, speech normal, denies homicidal ideation and denies suicidal ideation APPEARANCE: Yes grossly normal and Yes well kempt ATTITUDE: Yes calm, Yes Withdrawn affect present and Yes Guarded attititude/behavior present ACTIVITY/MOTOR BEHAVIOR: Yes appropriate eye contact, No fidgeting and No restless SPEECH: Yes normal speech MOOD & AFFECT: Yes Flat affect present THOUGHT PROCESS: Circumstantial thought process present THOUGHT CONTENT: No Suicidality present and No Homicidality present ATTENTION/CONCENTRATION: Yes attention grossly intact MEMORY/COGNITION: Yes memory grossly intact INSIGHT: Fair insight present (Psych) JUDGEMENT: Fair judgement present (Psych) Skin: COMMON NORMALS: no rashes or lesions noted and turgor normal GENERAL SKIN EXAM: no rashes or lesions noted and turgor normal Procedures Abscess I/D Site: lip Side (if applicable): right Local Anesthetic: lidocaine 1% Amount of anesthesia used (mL): 3 Technique: incised with #11 blade (lare amount of exudate) Irrigation: Yes Packing used?: none MDM - Psych MDM Narrative: Medical decision making narrative: 25-year-old male patient presents to the emergency department with schizophrenia, noncompliance with prescribed medication. Family completed affidavit which led to 96-hour hold, patient was brought into the emergency department by [facility] department here in [facility]. He denied suicidal/homicidal ideations plans or thoughts. He did admit to auditory hallucinations, mumbling. Urine drug screen negative, mother had reported use of methamphetamine. Mr. Coates denies use of illicit substance. Noted to the right cheek was an abscess with tunneling/induration, fluctuance. Incision and drainage completed, patient was compliant during the procedure. Large amount of exudate pronounced with abscess culture sent to the lab. Clindamycin was administered here in the ED, orally. White blood count slightly elevated 14.5 which could attribute to the abscess. I did not appreciate further oral trauma. Patient was able to eat during his stay. I discussed serology findings with Dr. Mendoza along with findings of cellulitis/abscess of the right cheek/lip. Cellulitis does extend approximately 5 cm to nasolabial fold. Mr. Coates has remained calm here in the ED, he declined need for Ativan. Initial dose of olanzapine was provided. No problematic behaviors noted. He reports his anxiety was controlled and did not need additional medication. Lab Data: Labs: Lab Results 11/13/20 11/13/20 11/13/20 Range/Units 17:29 17:29 17:29 WBC 14.5 H (4.0-10.0) 10^3/ uL RBC 5.17 (4.1-5.3) 10^6/u L Hgb 16.6 (11.7-16.6) g/dL Hct 47.2 (42.0-52.0) % MCV 91.3 (80-94) fL MCH 32.1 (28.0-34.0) pg MCHC 35.2 (30.0-36.0) g/dL RDW 11.8 L (12.1-15.1) % Plt Count 253 (130-400) 10^3/c mm MPV 10.4 (7.4-10.4) fL Neut % (Auto) 78.7 % Lymph % (Auto) 13.6 % Swisher % (Auto) 6.8 % Eos % (Auto) 0.2 % Baso % (Auto) 0.4 % Neut # (Auto) 11.37 H (1.8-7.7) 10^3/u L Lymph # (Auto) 2.0 (0.8-4.8) 10^3/u L Swisher # (Auto) 1.0 H (0.2-0.9) 10^3/u L Eos # (Auto) 0.0 (0.0-0.8) 10^3/u L Baso # (Auto) 0.1 (0.0-0.1) 10^3/u L Nucleated RBC % (a uto) 0 % Nucleated RBCs # 0.0 /100WBC Sodium 138 (136-145) mmol/L Potassium 4.0 (3.5-5.1) mmol/L Chloride 101 (98-107) mmol/L Carbon Dioxide 24 (22-29) mmol/L Anion Gap 17.0 (5-19) BUN 5 L (6-20) mg/dL Creatinine 0.5 L (0.7-1.2) mg/dL GFR Calculation 204.3 H (90-130) mL/min Glucose 93 (65-115) mg/dL Calculated Osmolal ity 283 L (285-295) mOsm/k g Calcium 9.4 (8.5-10.5) mg/dL Total Bilirubin 0.4 (0.15-1.2) mg/dL AST 18 (0-40) U/L ALT 35 (0-41) U/L Alkaline Phosphata se 95 (40-130) IU/L Total Protein 7.1 (6.6-8.7) g/dL Albumin 4.5 (3.5-5.2) g/dL Globulin 2.6 (1.3-4.6) g/dL Salicylates < 0.3 L (3-10) mg/dL Urine Opiates Scre en Negative (Negative) ng/mL Acetaminophen < 5.0 L (10-30) ug/mL Ur Barbiturates Sc reen Negative (Negative) ng/mL Ur Phencyclidine S crn Negative (Negative) ng/mL Ur Amphetamines Sc reen Negative (Negative) ng/mL U Benzodiazepines Scrn Negative (Negative) ng/mL Urine Cocaine Scre en Negative (Negative) ng/mL U Marijuana (THC) Screen Negative (Negative) ng/mL Ethyl Alcohol < 10 (0-10) mg/dL Discharge Plan Discharge Patient Disposition: Admitted As Inpatient Clinical Impression: Cellulitis and abscess of face Schizophrenia Qualifiers: Schizophrenia type: unspecified Qualified Code(s): F20.9 - Schizophrenia, unspecified Condition: Stable Coding Level of Care Code ED First Aid Nurse for Froy Lozano
--- NOTE | 2020-11-13 17:22 | PC.PHAR ---
pt states he is suppose to be taking zyprexa and pantoprazole pt states he hasnt taken for a week-[facility] zyprexa 15mg daily on 11/11/20-pantoprazole 40mg daily last filled on 09/16/20 and [facility] has one on hold from 10/21/20-pt states he only takes these 2 medications
[2020-11-13] MEDS: OLANZapine 10 mg TABLET 15 MG PO (17:30)
[2020-11-13 17:52] LABS: Basophils # 0.1 10^3/uL (0.0-0.1); Basophils % 0.4 %; Eosinophils % 0.2 %; Hematocrit 47.2 % (42.0-52.0); Hemoglobin 16.6 g/dL (11.7-16.6); Lymphocytes % 13.6 %; Mean Corpuscular HGB Conc 35.2 g/dL (30.0-36.0); Mean Corpuscular Hemoglobin 32.1 pg (28.0-34.0); Mean Corpuscular Volume 91.3 fL (80-94); Mean Platelet Volume 10.4 fL (7.4-10.4); Monocytes % 6.8 %; Neutrophils # 11.37 10^3/uL (1.8-7.7); Neutrophils % 78.7 %; Nucleated Red Blood Cells % 0 %; Platelet Count 253 10^3/cmm (130-400); Red Blood Count 5.17 10^6/uL (4.1-5.3); Red Cell Distribution Width 11.8 % (12.1-15.1); White Blood Count 14.5 10^3/uL (4.0-10.0)
[2020-11-13 17:57] LABS: Amphetamines Screen Urine Negative (Negative); Barbiturates Screen Urine Negative (Negative); Benzodiazepines Screen Urine Negative (Negative); Cocaine Screen Urine Negative (Negative); Opiate Screen Urine Negative (Negative); PCP Screen Urine Negative (Negative); THC Screen Urine Negative (Negative)
[2020-11-13 18:12] LABS: Alanine Aminotransferase 35 U/L (0-41); Albumin Level 4.5 g/dL (3.5-5.2); Alkaline Phosphatase 95 IU/L (40-130); Aspartate Amino Transferase 18 U/L (0-40); Blood Urea Nitrogen 5 mg/dL (6-20); Calcium 9.4 mg/dL (8.5-10.5); Carbon Dioxide 24 mmol/L (22-29); Chloride 101 mmol/L (98-107); Globulin 2.6 g/dL (1.3-4.6); Glomerular Filtration Rate 204.3 mL/min (90-130); Glucose 93 mg/dL (65-115); Osmolality Calculated 283 mOsm/kg (285-295); Sodium 138 mmol/L (136-145); Total Bilirubin 0.4 mg/dL (0.15-1.2); Total Protein 7.1 g/dL (6.6-8.7)
[2020-11-13 18:14] LABS: Salicylate < 0.3 mg/dL (3-10)
[2020-11-13 18:15] LABS: Acetaminophen < 5.0 ug/mL (10-30); Alcohol Level < 10 mg/dL (0-10)
--- NOTE | 2020-11-13 21:07 | PC.NURSE ---
pt refused abx and ativan. Receiving unit RN notified
[2020-11-13 21:49] VITALS: BP 115/70; PULSE 120; RESP 18; TEMP 36.9; O2SAT 97
--- NOTE | 2020-11-13 21:56 | PC.NURSE ---
Patient refused Clindamycin 300 mg in the E.D. prior to arrival to Unit offered again and still refused med.
[2020-11-13 22:00] VITALS: BP 117/70; PULSE 120; RESP 18; TEMP 36.9; O2SAT 97
[2020-11-14 06:00] VITALS: BP 117/70; PULSE 120; RESP 18; TEMP 36.9; O2SAT 97
[2020-11-14] MEDS: OLANZapine 5 mg TABLET 15 MG PO (08:17)
[2020-11-14] MEDS: pantoprazole DR 40 mg Tablet PO (08:17)
--- NOTE | 2020-11-14 11:39 | PC.RESP ---
SMOKING CESSATION INFORMATION SENT TO PATIENT.
[2020-11-14 14:00] VITALS: BP 110/63; PULSE 78; RESP 18; TEMP 37.2; O2SAT 95
--- NOTE | 2020-11-14 14:46 | P.HP_ITS ---
Providers/Chief Complaint Admitting Physician: Raul Mendoza MD Chief Complaint: 96 HR HOLD HPI NPU History of Present Illness Landry Coates is a 25 year old male who presented to the emergency department with the following report: Chief Complaint: Psychiatric Symptoms Stated Complaint: 96 HR HOLD Time Seen by Provider: 11/13/20 17:04 Source: patient and police Mode of arrival: other (PD) Limitations: no limitations History of Present Illness: HPI Narrative: 25-year-old male patient presents to the emergency department today in custody of [facility] under 96-hour hold. 96-hour hold was instated today, November 13, 2020. He has history of paranoid schizophrenic and PTSD with current history of methamphetamine use per mother. He was punching himself in the face and chewing the inside of his mouth to the point where 1 side was severely swollen. He was also hearing voices per statement on affidavit; patient reports hearing voices, states they are mumbling. Denies suicidal/homicidal thoughts, ideations plans upon exam. He denies illicit substance abuse. Affidavit by Geraldo Jennings stated Mr. Garcia stopped prescribed medication and starting the methamphetamine again. Family reports they are afraid of him. Afraid he is going to hurt them. They are afraid he is going to harm himself. They report he has been talking to himself There is also an additional affidavits from family members, sister stepmichelledmother with similar concerns. When asked concerning swelling of the face, he denies what occurred or what caused the suspected infection to the right upper lip. Associated symptoms: Reports auditory hallucinations; Deny depression. He was admitted to the neuropsychiatric unit for definitive treatment of those issues. He presents today reporting that he does not know why he stopped taking the medication. He reports that when he takes it that it is effective but he stopped taking it sometime ago. We discussed the risk benefits and alternatives of possibly considering a long-acting injectable given his nonadherence and he was insistent on resuming the Zyprexa because he reports it is very effective if he takes it. And he understood and agreed to proceed as is documented in his note. He denies any major issues with addiction at this time. He has an abscess on his right upper lip that is causing swelling up towards his right eye stretching to the right of his nose. He was very annoyed by it and is desiring he wanted to go away. He was fairly resistant to the interview but we were able to review information from his last hospitalization and he endorsed that there have been no substantive changes since then. An excerpt is included below. Per his 12/13/2019 [facility] inpatient psychiatric eval: History of Present Illness Landyr Coates is a 24 year old male The patient presents today reporting that he has a long history of psychosis as well as addiction, which is currently active. He presented to the emergency room endorsing that he had been off of his medication, and he has been struggling with his addiction. He was open to the idea of exploring a long acting injectable, with hopes that he could not worry about daily dosing, which might improve his adherence as well as his disease progression. We discussed the risks, benefits, and alternatives of resuming Invega, which he had successfully taken in the past, and he understood and agreed to proceed as is documented in this note. We reviewed his most recent evaluation which was in December of 2018, and he endorsed that the psycho-social information was valid. He is a limited historian, at this time. Per last [facility] dc summary: Discharge Summary Date of Admission: Dec 26, 2018 at 14:25 Discharge Date: Jan 09, 2019 Attending Physician: Gladis De La Fuente M.D.; Sanjay Acevedo MD Consulting Physician(s): Discharge Diagnosis: (1) Schizophrenia, paranoid type Status: Chronic (2) Methamphetamine abuse Status: Chronic (3) Noncompliance Status: Chronic Brief History: HPI: Landry Coates is a 23-year-old male who presents for his 13th admission to a psychiatric unit. [facility] in the past 24 months. I do not have access to the emergency room notes. However the according to records, the patient arrived with the police after being picked up for some sort of aggressive behavior. The patient himself denies that there was any problem. He denies that he has a psychiatric problem. He denies that he has used any type of methamphetamine or other substances. He claims that he does not know Emma Sevilla. He admits that Inge Jennings is his mother but claims that the things that she said in her affidavit are untrue. The patient is basically not comm unicating other than to say that he does not feel he has a problem does not feel he needs to be here. He says I want off of my medication. When asked about that medication he said he didn't know the name said that started with H. He was started on Haldol during his last admission 3 weeks ago. I began asking him questions such as hasn't helped you and were there any side effects . He reported that he never even open the bottle so he has not been taking his medication anyway. Patient then became noncommunicative and would not answer questions. Close to discharge her affidavits by Ms. Jennings and Ms. Sevilla. His mother reports that she feels he is going to kill himself or herself and her . He is not taking medications. He has been neglectful of hygiene she describes him as hypervigilant she states that they have to sleep in her bathroom door locked at night. Ms. Sevilla states that his [employer] has changed since his last admission. He is not taking his medications. I don't feel safe in my home, ever, I fear that he is going to harm me or my father and even stepmother if she has to get in his way. She describes him as dangerous, aggressive, and that I'm scared to even have to step back into the home with him there. Patient has a well-documented history of schizophrenia and drug abuse. He was hospitalized in January 2017 for 21 days, February 2017 for 5 days, June 2017 for 4 days, June 2017 3 days, July 2017 for 4 days, August 2017 for 6 days, September 2017 for 2 days, December 2017 for 6 days, December 2017 for 2 days, February 2018 for 5 days. Then today he was free of admissions for the next 8 months before being rehospitalized early last month for 3 days and at the end of last month for 3 days. He was admitted on 12/07/2018 and given the diagnoses: (1) Schizophrenia, paranoid type Status: Chronic (2) Methamphetamine abuse Status: Chronic (3) Anxiety Status: Chronic (4) Nicotine dependence, cigarettes, uncomplicated Status: Chronic (5) Noncompliance Status: Chronic He was discharged on oral Haldol. Social history: Patient is not interacting verbally providing any information. He appears to live with his mother, stepfather, and stepsister. He is unemployed. Family psychiatric history: Unknown Past Medical History Past Medical History: Patient is not cooperative with exam. Emergency room records indicate a history of heavy tobacco use but no other medical problems. Data Labs reviewed by provider: Item Value Date Time Urine Opiates Screen NEGATIVE ng/mL 12/26/18 1335 Urine Barbiturates Screen NEGATIVE ng/mL 12/26/18 1335 Urine Phencyclidine Screen NEGATIVE ng/mL 12/26/18 1335 Urine Amphetamines Screen NEGATIVE ng/mL 12/26/18 1335 Urine Benzodiazepines Screen NEGATIVE ng/mL 12/26/18 1335 Urine Cocaine Screen NEGATIVE ng/mL 12/26/18 1335 Urine Marijuana (THC) Screen NEGATIVE ng/mL 12/26/18 1335 Result Diagram: 12/26/18 1311 12/26/18 1311 document embedded image Admission Assessment/Problem List Assessment/Problem List Other Assessment/Problem List: (1) Schizophrenia, paranoid type Status: Acute (2) Methamphetamine abuse Status: Chronic (5) Noncompliance Status: Acute Hospital Course: The patient was admitted to the hospital inpatient psychiatric unit. He was provided a safe, supportive environment and encouraged to participate in individual, group, recreational, and milieu psychotherapies. Staff worked with him on positive coping skills. Medications were reviewed and adjustments were made based on the patient's symptoms and response to treatment. Initially 96 hour hold was discontinued and 21 day hold filed/improved. Patient was started on Invega titrated to 9 mg daily for psychosis/mood stabilization which he tolerated without problems. Staff attempted to obtain collateral information and network with the patient's family regarding his overall status and discharge planning. No family member answered the phone during daily calls to network with them. Affidavits were reviewed which indicated that the patient had ongoing noncompliance with medications at home, chronic self-care deficits, intermittent anger/verbal aggression issues. Family had indicated that they were wanting placement for the patient but had never failed to file for guardianship as recommended by the treatment team during numerous prior psychiatric admissions. As such, the treatment team did agree to file in favor of guardianship with a state appointed guardian. As the patient was still his own guardian, refused placement with no payor source, and had returned to his baseline functioning, he was discharged home. Care management was consulted for medication assistance and discharge planning including [facility]. Disposition: discharge patient home with local mental Health Center follow-up for medication management/therapy/case management strongly recommended. Care management to assist with discharge planning. Condition at Discharge: Stable. At time of discharge, the patient was ambulating and taking oral medications without difficulty. He was tolerating all medications without side effects or adverse reactions. He reported improvement in symptoms and resolution of mood lability, self-care failure, and auditory hallucinations. New Medications: Paliperidone Tab (Invega Tab) 9 Mg Tab.osm.24 9 MG PO DAILY, #14 TAB 2 Refills Discontinued Medications: Haloperidol Tab (Haldol Tab) 5 Mg Tablet 5 MG PO DAILY PRN for agitation/psychosis, #14 TAB 2 Refills Hydroxyzine Pamoate Cap (Vistaril Cap) 25 Mg Capsule 25 MG PO QID PRN for FOR ANXIETY, CAP Meds NPU Home Medications Medication Instructions Recorded Confirmed Last Taken Type olanzapine 15 mg tablet 15 mg PO DAILY #30 tab 10/21/20 11/13/20 Unknown Rx pantoprazole 40 mg tablet,delayed 40 mg PO DAILY #30 tab 10/21/20 11/13/20 Unknown Rx release Allergies Allergy/AdvReac Type Severity Reaction Status Date / Time No Known Allergies Allergy Verified 11/13/20 17:22 PFS NPU PFSH: Medical History On high dose antipsychotic drug therapy Other schizophrenia 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 No abnormal movements except for psychomotor retardation. Clear notable abscess in his right upper lip stretching up above his nose to the right up towards his eye. Mostly cooperative with exam and mild distress. Speech limited and decreased rate and volume with clear impact of the abscess. Mood described as I will note, affect somewhat annoyed and subdued. Thought process linear. Thought content: Patient denied suicidal or homicidal ideation, there are no delusions reported or noted, he did endorse perceptual disturbance with auditory hallucinations. Attention and concentration were limited and memory was mostly reliable but none were formally tested. He is alert and oriented x3. Insight and judgment are limited and impulse control is limited. Vitals/I&O/Wt Last Vital Signs Temp 98.9 F 11/14/20 14:00 Pulse 78 11/14/20 14:00 Resp 18 11/14/20 14:00 BP 110/63 11/14/20 14:00 Pulse Ox 95 11/14/20 14:00 Weight last 48 hrs Weight 68.039 kg Data NPU : 11/13/20 17:29 11/13/20 17:29 Micro: Microbiology 11/13/20 17:41 Gram Stain - Final Face Microbiology 11/13/20 17:41 Face Gram Stain - Final A&P Assessment and plan (1) Cellulitis and abscess of face: Status: Acute (2) Methamphetamine dependence: Status: Acute (3) Schizophrenia: Status: Acute Qualifiers: Schizophrenia type: unspecified Qualified Code(s): F20.9 - Schizophren ia, unspecified Additional A&P Information This is a 25-year-old white male with a long history of schizophrenia and addiction who presents with active psychosis and also medication. 1. Continue current medication. Restart Zyprexa and titrate to effect. 2. Continue every 15 minute checks for safety. 3. Encourage individual, group and milieu therapies. 4. Encourage sober living treatment after discharge at the highest level of care to which he is willing to commit. Involuntary Hold Information 96 Hour Hold: 96 Hour Involuntary Admission: Yes 96 Hour Hold Ending Date: 11/19/20 96 Hour Hold Ending Time: 16:50 Attestations NPU Medical Necessity Statement*: Inpatient hospitalization is medically necessary and the clinically appropriate intervention at this time. We will monitor medications and make changes as indicated. Patient will be in the hospital for over two midnights. Likely length of stay 3 to 5 days. Coding Level of Care Code Acute Panel Machine Operator for Froy Lozano Diagnoses Cellulitis and abscess of face L03.211; L02.01 Methamphetamine dependence F15.20 Schizophrenia F20.9 Schizophrenia type: unspecified
[2020-11-14 22:00] VITALS: BP 73/32; PULSE 57; RESP 16; TEMP 36.4; O2SAT 97
[2020-11-15 06:00] VITALS: BP 110/65; PULSE 69; RESP 17; TEMP 37.4; O2SAT 95
[2020-11-15] MEDS: pantoprazole DR 40 mg Tablet PO (08:00)
[2020-11-15] MEDS: OLANZapine 5 mg TABLET 15 MG PO (08:00)
[2020-11-15 14:00] VITALS: BP 103/62; PULSE 88; RESP 18; TEMP 37; O2SAT 95
--- NOTE | 2020-11-15 17:25 | P.PN_ITS ---
Subjective NPU Subjective: Interval history: Landry presented today with limited speech and appearing to have a worsening of his abscess on his face. Staff report that he refused his antibiotic and he may have refused that in the emergency room as well. Lab results returned that it is staph aureus but it is unclear whether its MRSA. We discussed the importance of him taking his antibiotic and the dangers that can occur if he does not but it is unclear whether he really understands that. He did continue to be short of answers. We will await the results of susceptibilities. Mental Status Exam MSE Comments: This is a slender white male in hospital scrubs with limited grooming and eye contact. No abnormal movements except for psychomotor retardation. Clear notable abscess in his right upper lip stretching up above his nose to the right up towards his eye. Mostly cooperative with exam and mild distress. Speech limited and decreased rate and volume with clear impact of the abscess. Mood described as okay, affect somewhat annoyed and subdued. Thought process linear. Thought content: Patient denied suicidal or homicidal ideation, there are no delusions reported or noted, he did endorse perceptual disturbance with auditory hallucinations. Attention and concentration were limited and memory was mostly reliable but none were formally tested. He is alert and oriented x3. Insight and judgment are limited and impulse control is limited. Vitals/I&O/Wt Last Vital Signs Temp 97.3 F L 11/15/20 20:21 Pulse 77 11/15/20 20:21 Resp 16 11/15/20 20:21 BP 111/61 11/15/20 20:21 Pulse Ox 96 11/15/20 20:21 Data NPU : 11/13/20 17:29 11/13/20 17:29 Micro: Microbiology 11/13/20 17:41 Gram Stain - Final Face Abscess Culture - Preliminary Staphylococcus aureus Microbiology 11/13/20 17:41 Face Gram Stain - Final 11/13/20 17:41 Face Abscess Culture - Preliminary Staphylococcus aureus A&P Additional A&P Information (1) Cellulitis and abscess of face: (2) Methamphetamine dependence: (3) Schizophrenia: Additional A&P Information This is a 25-year-old white male with a long history of schizophrenia and addiction who presents with active psychosis and also medication. 1. Continue current medication. Continue to encourage taking the clindamycin and will follow any need to change that medication. 2. Continue every 15 minute checks for safety. 3. Encourage individual, group and milieu therapies. 4. Encourage sober living treatment after discharge at the highest level of care to which he is willing to commit. Involuntary Hold Information 96 Hour Hold: 96 Hour Involuntary Admission: Yes 96 Hour Hold Ending Date: 11/19/20 96 Hour Hold Ending Time: 16:50 Attestations NPU Medical Necessity Statement*: Inpatient hospitalization is medically necessary and the clinically appropriate intervention at this time. We will monitor m edications and make changes as indicated. Likely length of stay 3 to 5 days. Coding Level of Care Code Acute Tie Up Worker for Froy Lozano
[2020-11-15 20:21] VITALS: BP 111/61; PULSE 77; RESP 16; TEMP 36.3; O2SAT 96
[2020-11-16] MEDS: clindamycin 150 mg Capsule 300 MG PO ×4 (03:46→21:31)
--- NOTE | 2020-11-16 03:50 | PC.NURSE ---
2100-Declined Clindamycin Pt is not willing to take medication, educated on s/s of infection, notified charge nurse.
--- NOTE | 2020-11-16 03:52 | PC.NURSE ---
Clindamycin given 1st dose of Clindamycin 300mg PO. Both RN's entered pt room, examined abscess on the lip/cheek area of the pt face, noted minimal purulent drainage, pt reports pain, pt did not want to take this medication. educated pt regarding sepsis and risk of further infection risk, pt notified physician would be consulted if this behavior continued and the antibiotic route could be IM. Pt complied, took medication.
--- NOTE | 2020-11-16 04:30 | PC.NURSE ---
Abscess cleaned, draining is yellow and purulent, amount is small, pt states, it dont hurt and I do not want that antibiotic, pt refused to allow nurse to administer 2100 dose of clindamycin, however did take the second dose offered at 0300.
[2020-11-16 06:00] VITALS: BP 122/64; PULSE 56; RESP 18; TEMP 37.1; O2SAT 95
[2020-11-16] MEDS: OLANZapine 5 mg TABLET 15 MG PO (08:12)
[2020-11-16] MEDS: pantoprazole DR 40 mg Tablet PO (08:12)
--- NOTE | 2020-11-16 09:27 | P.PN_ITS ---
Subjective NPU Subjective: Interval history: For presents today reporting that he is feeling okay. He continues to be quite isolative but is taking his medication. His mother continues to check in on him and have concerns about his functioning. We spoke again today about the findings with his staph aureus and the critical importance of him taking the medication so that the infection does not spread as it continues to seem to be causing diffuse swelling on his right side even as high as his eye. He agreed he would continue to take it and he denies any side effects to the restarting of his Zyprexa. Mental Status Exam MSE Comments: This is a slender white male in hospital scrubs with limited grooming and eye contact. No abnormal movements except for psychomotor retardation. Clear notable abscess in his right upper lip stretching up above his nose to the right up towards his eye. Mostly cooperative with exam and no acute distress. Speech limited and decreased rate and volume with clear impact of the abscess. Mood described as a little better, affect less annoyed and subdued. Thought process linear. Thought content: Patient denied suicidal or homicidal ideation, there are no delusions reported or noted, he did endorse perceptual disturbance with auditory hallucinations. Attention and concentration were limited and memory was mostly reliable but none were formally tested. He is alert and oriented x3. Insight and judgment are limited and impulse control is limited. Vitals/I&O/Wt Last Vital Signs Temp 98.8 F 11/16/20 06:00 Pulse 56 L 11/16/20 06:00 Resp 18 11/16/20 06:00 BP 122/64 11/16/20 06:00 Pulse Ox 95 11/16/20 06:00 Data NPU : 11/13/20 17:29 11/13/20 17:29 Micro: Microbiology 11/13/20 17:41 Gram Stain - Final Face Abscess Culture - Preliminary Staphylococcus aureus Microbiology 11/13/20 17:41 Face Gram Stain - Final 11/13/20 17:41 Face Abscess Culture - Preliminary Staphylococcus aureus A&P Additional A&P Information (1) Cellulitis and abscess of face: (2) Methamphetamine dependence: (3) Schizophrenia: Additional A&P Information This is a 25-year-old white male with a long history of schizophrenia and addiction who presents with active psychosis and also medication. 1. Continue current medication. Staph aureus that was cultured has sensitivity to clindamycin so we will continue. 2. Continue every 15 minute checks for safety. 3. Encourage individual, group and milieu therapies. 4. Encourage sober living treatment after discharge at the highest level of care to which he is willing to commit. Involuntary Hold Information 96 Hour Hold: 96 Hour Involuntary Admission: Yes 96 Hour Hold Ending Date: 11/19/20 96 Hour Hold Ending Time: 16:50 Attestations NPU Medical Necessity Statement*: Inpatient hospitalization is medically necessary and the clinically appropriate intervention at this time. We will monitor medications and make changes as indicated. Likely length of stay 2-4 days. Coding Level of Care Code Acute Chief Information Security Officer for Froy Lozano
[2020-11-16 14:00] VITALS: BP 100/56; PULSE 63; RESP 16; TEMP 37.2; O2SAT 97
[2020-11-16 22:00] VITALS: BP 103/59; PULSE 60; RESP 18; TEMP 36.8; O2SAT 97
[2020-11-17] MEDS: clindamycin 150 mg Capsule 300 MG PO ×4 (03:31→20:54)
[2020-11-17 06:00] VITALS: BP 92/60; PULSE 93; RESP 17; TEMP 36.9; O2SAT 97
[2020-11-17] MEDS: OLANZapine 5 mg TABLET 15 MG PO (09:14)
[2020-11-17] MEDS: pantoprazole DR 40 mg Tablet PO (09:15)
[2020-11-17 13:56] VITALS: BP 116/73; PULSE 95; RESP 18; TEMP 37.1
--- NOTE | 2020-11-17 17:33 | PM.NPN ---
Subjective NPU Subjective: Interval history: Landry presents today being the most interactive that he has been since he was admitted. A clear improvement in his right side of his face with the antibiotic treatment is notable particularly now his eyes show symmetry and are identical observationally. He is asking about when he might be able to discharge. We agreed to speak with his mother and see how his improvement continues along with the treatment team tomorrow and consider discharge sometime after that. Mental Status Exam MSE Comments: This is a slender white male in hospital scrubs with limited grooming and eye contact. No abnormal movements except for psychomotor retardation. Clear notable abscess in his right upper lip stretching up above his nose but no longer swelling up towards his eye. Mostly cooperative with exam in no acute distress. Speech limited and decreased rate and volume with resolving impact of the abscess. Mood described as a little better, affect congruent but flat. Thought process more organized. Thought content: Patient denied suicidal or homicidal ideation, there are no delusions reported or but some paranoia and guardedness remains, he did endorse perceptual disturbance with auditory hallucinations but reported improvement. Attention and concentration were improving and memory was mostly reliable but none were formally tested. He is alert and oriented x3. Insight and judgment are limited but improving and impulse control is limited. Vitals/I&O/Wt Last Vital Signs Temp 98.3 F 11/17/20 20:47 Pulse 69 11/17/20 20:47 Resp 15 11/17/20 20:47 BP 97/55 11/17/20 20:47 Pulse Ox 96 11/17/20 20:47 Weight last 48 hrs Weight 68.039 kg Data NPU : 11/13/20 17:29 11/13/20 17:29 Micro: Microbiology 11/13/20 17:41 Gram Stain - Final Face Abscess Culture - Final Staphylococcus aureus Microbiology 11/13/20 17:41 Face Gram Stain - Final 11/13/20 17:41 Face Abscess Culture - Final Staphylococcus aureus A&P Additional A&P Information (1) Cellulitis and abscess of face: (2) Methamphetamine dependence: (3) Schizophrenia: Additional A&P Information This is a 25-year-old white male with a long history of schizophrenia and addiction who presents with active psychosis and also medication. 1. Continue current medication. 2. Continue every 15 minute checks for safety. 3. Encourage individual, group and milieu therapies. 4. Encourage sober living treatment after discharge at the highest level of care to which he is willing to commit. Involuntary Hold Information 96 Hour Hold: 96 Hour Involuntary Admission: Yes 96 Hour Hold Ending Date: 11/19/20 96 Hour Hold Ending Time: 16:50 Attestations NPU Medical Necessity Statement*: Inpatient hospitalization is medically necessary and the clinically appropriate intervention at this time. We will monitor medications and make changes as indicated. Likely length of stay 1-3 days. Coding Level of Care Code Acute Ferry Boat Captain for Froy Lozano
[2020-11-17 20:47] VITALS: BP 97/55; PULSE 69; RESP 15; TEMP 36.8; O2SAT 96
[2020-11-18] MEDS: clindamycin 150 mg Capsule 300 MG PO ×4 (03:03→21:04)
[2020-11-18 06:00] VITALS: BP 111/57; PULSE 62; RESP 17; TEMP 36.8; O2SAT 95
[2020-11-18] MEDS: pantoprazole DR 40 mg Tablet PO (08:39)
[2020-11-18] MEDS: OLANZapine 5 mg TABLET 15 MG PO (08:40)
[2020-11-18 14:00] VITALS: BP 102/57; PULSE 104; RESP 16; TEMP 37.4; O2SAT 95
--- NOTE | 2020-11-18 17:40 | P.PN_ITS ---
Subjective NPU Subjective: Interval history: Fluid presents today continuing to show significant improvement in his infection. He continues to take his antibiotic doses as prescribed. We continue to have conversation about the importance of continuing that after discharge even though his face is healing clearly. The symmetry of his face identifies that that infection was ascending to his right eye. Additionally he is feeling more spontaneous interactions, unfortunately does demonstrate his level of impairment. He continues to be somewhat disorganized but very focused on going home. His 96-hour hold is up tomorrow and mom is open to getting him up and sitting and in the rest of his c onvalescence then. Mental Status Exam MSE Comments: This is a slender white male in hospital scrubs with limited grooming and eye contact. No abnormal movements except for psychomotor retardation. Clear improvement in the abscess on his right upper lip with daily reduction in swelling and no purulent exudate. Cooperative with exam in no acute distress, but very focused on trying to be discharged today. Speech more spontaneous and normal rate and volume. Mood described as better, affect congruent but flat. Thought process more organized. Thought content: Patient denied suicidal or homicidal ideation, there are no delusions reported but improvement in the paranoia and guardedness, he denied auditory or visual hallucinations but it is unclear whether that is true or just him pitching for discharge. Attention and concentration were improving and memory was mostly reliable but none were formally tested. He is alert and oriented x3. Insight and judgment are limited but improving and impulse control is limited, but improving. Vitals/I&O/Wt Last Vital Signs Temp 97.3 F L 11/18/20 22:00 Pulse 92 11/18/20 22:00 Resp 16 11/18/20 22:00 BP 101/51 11/18/20 22:00 Pulse Ox 96 11/18/20 22:00 Weight last 48 hrs Weight 68.039 kg Data NPU : 11/13/20 17:29 11/13/20 17:29 A&P Additional A&P Information (1) Cellulitis and abscess of face: (2) Methamphetamine dependence: (3) Schizophrenia: Additional A&P Information This is a 25-year-old white male with a long history of schizophrenia and addiction who presents with active psychosis and also medication. 1. Continue current medication. 2. Continue every 15 minute checks for safety. 3. Encourage individual, group and milieu therapies. 4. Encourage sober living treatment after discharge at the highest level of care to which he is willing to commit. Involuntary Hold Information 96 Hour Hold: 96 Hour Involuntary Admission: Yes 96 Hour Hold Ending Date: 11/19/20 96 Hour Hold Ending Time: 16:50 Attestations NPU Medical Necessity Statement*: Inpatient hospitalization is medically necessary and the clinically appropriate intervention at this time. We will monitor medications and make changes as indicated. Plan for discharge in the morning. Coding Level of Care Code Acute Medical Office Secretary for Froy Lozano
[2020-11-18 22:00] VITALS: BP 101/51; PULSE 92; RESP 16; TEMP 36.3; O2SAT 96
[2020-11-19] MEDS: clindamycin 150 mg Capsule 300 MG PO ×2 (04:03→08:19)
--- NOTE | 2020-11-19 05:56 | PM.NDC ---
Diagnoses at Discharge Discharge Diagnosis (1) Cellulitis and abscess of face: Status: Acute (2) Methamphetamine dependence: Status: Acute (3) Schizophrenia: Status: Acute Qualifiers: Schizophrenia type: unspecified Qualified Code(s): F20.9 - Schizophrenia, unspecified Reason for Visit Reason for Visit: 96 HR HOLD Brief History: History of Present Illness Landry Coates is a 25 year old male who presented to the emergency department with the following report: Chief Complaint: Psychiatric Symptoms Stated Complaint: 96 HR HOLD Time Seen by Provider: 11/13/20 17:04 Source: patient and police Mode of arrival: other (PD) Limitations: no limitations History of Present Illness: HPI Narrative: 25-year-old male patient presents to the emergency department today in custody of [facility] department under 96-hour hold. 96-hour hold was instated today, November 13, 2020. He has history of paranoid schizophrenic and PTSD with current history of methamphetamine use per mother. He was punching himself in the face and chewing the inside of his mouth to the point where 1 side was severely swollen. He was also hearing voices per statement on affidavit; patient reports hearing voices, states they are mumbling. Denies suicidal/homicidal thoughts, ideations plans upon exam. He denies illicit substance abuse. Affidavit by Geraldo Jennings stated Mr. Garcia stopped prescribed medication and starting the methamphetamine again. Family reports they are afraid of him. Afraid he is going to hurt them. They are afraid he is going to harm himself. They report he has been talking to himself There is also an additional affidavits from family members, sister stepgrandmother with similar concerns. When asked concerning swelling of the face, he denies what occurred or what caused the suspected infection to the right upper lip. Associated symptoms: Reports auditory hallucinations; Deny depression. He was admitted to the neuropsychiatric unit for definitive treatment of those issues. He presents today reporting that he does not know why he stopped taking the medication. He reports that when he takes it that it is effective but he stopped taking it sometime ago. We discussed the risk benefits and alternatives of possibly considering a long-acting injectable given his nonadherence and he was insistent on resuming the Zyprexa because he reports it is very effective if he takes it. And he understood and agreed to proceed as is documented in his note. He denies any major issues with addiction at this time. He has an abscess on his right upper lip that is causing swelling up towards his right eye stretching to the right of his nose. He was very annoyed by it and is desiring he wanted to go away. He was fairly resistant to the interview but we were able to review information from his last hospitalization and he endorsed that there have been no substantive changes since then. An excerpt is included below. Per his [place]13/[place] [facility] [place]: History of Present Illness Landry Coates is a 24 year old male The patient presents today reporting that he has a long history of psychosis as well as addiction, which is currently active. He presented to the emergency room endorsing that he had been off of his medication, and he has been struggling with his addiction. He was open to the idea of exploring a long acting injectable, with hopes that he could not worry about daily dosing, which might improve his adherence as well as his disease progression. We discussed the risks, benefits, and alternatives of resuming Invega, which he had successfully taken in the past, and he understood and agreed to proceed as is documented in this note. We reviewed his most recent evaluation which was in December of 2018, and he endorsed that the psycho-social information was valid. He is a limited historian, at this time. Per last [facility] [place] [place] summary: Discharge Summary Date of Admission: Dec 26, 2018 at 14:25 Discharge Date: Jan 09, 2019 Attending Physician: Gladis De La Fuente M.D.; Sanjay Acevedo MD Consulting Physician(s): Discharge Diagnosis: (1) Schizophrenia, paranoid type Status: Chronic (2) Methamphetamine abuse Status: Chronic (3) Noncompliance Status: Chronic Brief History: HPI: Landry Coates is a 23-year-old male who presents for his 13th admission to a psychiatric unit. [facility] in the past 24 months. I do not have access to the emergency room notes. However the according to records, the patient arrived with the police after being picked up for some sort of aggressive behavior. The patient himself denies that there was any problem. He denies that he has a psychiatric problem. He denies that he has used any type of methamphetamine or other substances. He claims that he does not know Emma Sevilla. He admits that Inge Jennings is his mother but claims that the things that she said in her affidavit are untrue. The patient is basically not communicating other than to say that he does not feel he has a problem does not feel he needs to be here. He says I want off of my medication. When asked about that medication he said he didn't know the name said that started with H. He was started on Haldol during his last admission 3 weeks ago. I began asking him questions such as hasn't helped you and were there any side effects . He reported that he never even open the bottle so he has not been taking his medication anyway. Patient then became noncommunicative and would not answer questions. Close to discharge her affidavits by Peter Dick and Ms. Sevilla. His mother reports that she feels he is going to kill himself or herself and her . He is not taking medications. He has been neglectful of hygiene she describes him as hypervigilant she states that they have to sleep in her bathroom door locked at night. Ms. Sevilla states that his Hurson Parasi has changed since his last admission. He is not taking his medications. I don't feel safe in my home, ever, I fear that he is going to harm me or my father and even stepmother if she has to get in his way. She describes him as dangerous, aggressive, and that I'm scared to even have to step back into the home with him there. Patient has a well-documented history of schizophrenia and drug abuse. He was hospitalized in January 2017 for 21 days, February 2017 for 5 days, June 2017 for 4 days, June 2017 3 days, July 2017 for 4 days, August 2017 for 6 days, September 2017 for 2 days, December 2017 for 6 days, December 2017 for 2 days, February 2018 for 5 days. Then today he was free of admissions for the next 8 months before being rehospitalized early last month for 3 days and at the end of last month for 3 days. He was admitted on 12/07/2018 and given the diagnoses: (1) Schizophrenia, paranoid type Status: Chronic (2) Methamphetamine abuse Status: Chronic (3) Anxiety Status: Chronic (4) Nicotine dependence, cigarettes, uncomplicated Status: Chronic (5) Noncompliance Status: Chronic He was discharged on oral Haldol. Social history: Patient is not interacting verbally providing any information. He appears to live with his mother, stepfather, and stepsister. He is unemployed. Family psychiatric history: Unknown Past Medical History Past Medical History: Patient is not cooperative with exam. Emergency room records indicate a history of heavy tobacco use but no other medical problems. Data Labs reviewed by provider: Item Value Date Time Urine Opiates Screen NEGATIVE ng/mL 12/26/18 1335 Urine Barbiturates Screen NEGATIVE ng/mL 12/26/18 1335 Urine Phencyclidine Screen NEGATIVE ng/mL 12/26/18 1335 Urine Amphetamines Screen NEGATIVE ng/mL 12/26/18 1335 Urine Benzodiazepines Screen NEGATIVE ng/mL 12/26/18 1335 Urine Cocaine Screen NEGATIVE ng/mL 12/26/18 1335 Urine Marijuana (THC) Screen NEGATIVE ng/mL 12/26/18 1335 Result Diagram: 12/26/18 1311 12/26/18 1311 document embedded image Admission Assessment/Problem List Assessment/Problem List Other Assessment/Problem List: (1) Schizophrenia, paranoid type Status: Acute (2) Methamphetamine abuse Status: Chronic (5) Noncompliance Status: Acute Hospital Course: The patient was admitted to the hospital inpatient psychiatric unit. He was provided a safe, supportive environment and encouraged to participate in individual, group, recreational, and milieu psychotherapies. Staff worked with him on positive coping skills. Medications were reviewed and adjustments were made based on the patient's symptoms and response to treatment. Initially 96 hour hold was discontinued and 21 day hold filed/improved. Patient was started on Invega titrated to 9 mg daily for psychosis/mood stabilization which he tolerated without problems. Staff attempted to obtain collateral information and network with the patient's family regarding his overall status and discharge planning. No family member answered the phone during daily calls to network with them. Affidavits were reviewed which indicated that the patient had ongoing noncompliance with medications at home, chronic self-care deficits, intermittent anger/verbal aggression issues. Family had indicated that they were wanting placement for the patient but had never failed to file for guardianship as recommended by the treatment team during numerous prior psychiatric admissions. As such, the treatment team did agree to file in favor of guardianship with a state appointed guardian. As the patient was still his own guardian, refused placement with no payor source, and had returned to his baseline functioning, he was discharged home. Care management was consulted for medication assistance and discharge planning including recommendation for an outpatient protective services case worker. Disposition: discharge patient home with local mental [facility] follow-up for medication management/therapy/case management strongly recommended. Care management to assist with discharge planning. Condition at Discharge: Stable. At time of discharge, the patient was ambulating and taking oral medications without difficulty. He was tolerating all medications without side effects or adverse reactions. He reported improvement in symptoms and resolution of mood lability, self-care failure, and auditory hallucinations. New Medications: Paliperidone Tab (Invega Tab) 9 Mg Tab.osm.24 9 MG PO DAILY, #14 TAB 2 Refills Discontinued Medications: Haloperidol Tab (Haldol Tab) 5 Mg Tablet 5 MG PO DAILY PRN for agitation/psychosis, #14 TAB 2 Refills Hydroxyzine Pamoate Cap (Vistaril Cap) 25 Mg Capsule 25 MG PO QID PRN for FOR ANXIETY, CAP Hospital Course Hospital Course Samuel present to the emergency department with raymundo psychosis and nasty abscess on the right side of his face and mouth not taking his medications and appearing quite bizarre. He was admitted to the neuropsychiatric unit for definitive treatment of those issues. On the unit he slowly acclimated to the individual, group and milieu therapies provided he responded quite well to the I&D and antibiotics for his abscess and allowed us to restart his medications with a positive response. He worked with his mother to get a sufficient amount of improvement that she felt to be able to manage him back at home and he was able to contract for safety outside of the hospital with modest improvement. During the hospitalization, patient had routine laboratory studies which were within normal limits except for few outliers. Additionally there was a general medical evaluation which was also within normal limits and revealed no new acute processes. Discharge Summary: At the time of discharge, lethality was denied and psychosis was resolving. Mood and anxiety were well managed. Patient endorsed a plan to avoid all drugs of abuse and follow-up with the aftercare recommendations of the treatment team. Patient was evaluated and deemed to be absent credible lethality, and had achieved the maximum benefit from an inpatient hospitalization, so was discharged. Involuntary Hold Information 96 Hour Hold: 96 Hour Involuntary Admission: Yes 96 Hour Hold Ending Date: 11/19/20 96 Hour Hold Ending Time: 16:50 Mental Status Exam MSE Comments: This is a slender white male in hospital scrubs with limited grooming and eye contact. No abnormal movements except for psychomotor retardation. Clear improvement in the abscess on his right upper lip with no notable swelling or purulent exudate. Cooperative with exam in no acute distress. Speech more spontaneous and normal rate and volume. Mood described as better, affect congruent but flat and. Thought process more organized. Thought content: Patient denied suicidal or homicidal ideation, there are no delusions reported and improvement in the paranoia and guardedness, he denied auditory or visual hallucinations but it is unclear whether that is true or just him pitching for discharge. Attention and concentration were improving and memory was mostly reliable but none were formally tested. He is alert and oriented x3. Insight and judgment are limited but improving and impulse control is limited, but improving. Discharge Data Vitals: Last Vital Signs Temp 97.3 F L 11/18/20 22:00 Pulse 92 11/18/20 22:00 Resp 16 11/18/20 22:00 BP 101/51 11/18/20 22:00 Pulse Ox 96 11/18/20 22:00 Discharge Plan Discharge Patient Disposition: Home Condition: Stable Prescriptions: Continued pantoprazole 40 mg tablet,delayed release (DR/EC) 40 mg PO DAILY 30 Days Qty: 30 RF: 1 Zyprexa 15 mg tablet 15 mg PO DAILY 30 Days Qty: 30 RF: 1 Discharge Orders: Discharge Order (Routine); Ordered 11/19/20 Ordered By: Raul Mendoza Referrals: Amina Moore PMHNP [Staff Physician] - 12/04/20 1:30 pm (phone appointment NPU follow up) Discharge Diet: Regular Discharge Activity: Resume usual activity Patient Instructions: Clindamycin (By mouth) Discharge Attestations NPU Time Spent in Discharge Care*: less than 30 min Specific Discharge Activities: Specific discharge activities: educating patient, discussing with upper caser/social workers/dc planners, documenting/other paperwork and evaluating patient/reviewing data Coding Level of Care Code Acute Eligibility Specialist for [facility] Fwd Diagnoses Cellulitis and abscess of face L03.211; L02.01 Methamphetamine dependence F15.20 Schizophrenia F20.9 Schizophrenia type: unspecified
[2020-11-19 06:40] VITALS: BP 102/64; PULSE 72; RESP 18; TEMP 36.6; O2SAT 95
[2020-11-19 07:50] VITALS: BP 102/64; PULSE 72; RESP 18; TEMP 36.6; O2SAT 95
[2020-11-19] MEDS: pantoprazole DR 40 mg Tablet PO (08:18)
[2020-11-19] MEDS: OLANZapine 5 mg TABLET 15 MG PO (08:18)
== END 2020-11-19 09:53 | disposition home or self-care (01) | DRG 885 ==
LOC: ER 19:22 → NP 20:35
PROVIDERS: Admitting Provider Psychiatry & Neurology Psychiatry; Emergency Provider Nurse Practitioner Family; Visit Provider Psychiatry & Neurology Psychiatry
DX: F20.9 Schizophrenia, unspecified (principal); F15.20 Other stimulant dependence, uncomplicated; L02.01 Cutaneous abscess of face; F43.10 Post-traumatic stress disorder, unspecified; Z91.14 Patient's other noncompliance with medication regimen; F17.210 Nicotine dependence, cigarettes, uncomplicated
CPT/HCPCS: 10060; 80053; 80306; 80307; 85025; 87070; 87075; 87077; 87186; 87205; 99285

== ENCOUNTER → 2020-12-04 08:12 | Outpatient (BNVA) | payer MEDICAID, SELFPAY | PROVIDERS: Visit Provider Nurse Practitioner | DX: F15.20 Other stimulant dependence, uncomplicated (principal); F20.9 Schizophrenia, unspecified | CPT/HCPCS: 99214 ==

== ENCOUNTER 2020-12-19 08:48 | Inpatient (IN) | payer MEDICARE, MEDICAID, SELFPAY ==
[2020-12-19 08:54] VITALS: BP 122/80; PULSE 146; RESP 16; TEMP 36.4; O2SAT 95; BMI 20.3
--- NOTE | 2020-12-19 09:11 | ED_ITS ---
HPI - Psych General: Chief Complaint: Psychiatric Symptoms Stated Complaint: MHE Time Seen by Provider: 12/19/20 09:03 History of Present Illness: HPI Narrative: Patient arrives here saying that he is incoherent out of medications and wants to be admitted to the psych unit . hard to determine if patient is homeless or not. Patient states has not taken his Zyprexa for days. Denies any current drug use denies any suicidal or homicidal thoughts. But he does say that he is hearing voices which is been consistent with his past. He said voices are telling him to kill himself Onset (ago): year(s) Duration: constant History of same: Yes Relieving factors: none Exacerbating factors: none Context: recent drug abuse (Denies) Associated psychiatric symptoms: auditory hallucinations Associated symptoms: Reports auditory hallucinations; Deny depression Treatments prior to arrival: none Review of Systems Narrative: Mother called down to CARE PROGRAM RESIDENT you about our half and to patient's visit here in the ER and told them that she thought he might had seizure-like activity. Const: Denies: fever(s), chills or body aches Eyes: Denies: change in vision or blurry vision ENMT: Denies: throat pain or nasal congestion Card: Denies: chest pain or dyspnea on exertion Resp: Denies: dyspnea, productive cough or non-productive cough GI: Denies: abdominal pain, nausea or vomiting : Denies: difficulty urinating Musc: Denies: extremity pain Skin/Breast: Denies: rash Neuro: Denies: headache(s) Psych: Reports: difficulty concentrating, auditory hallucinations and other (Thoughts been coherency as per patient); Denies: anxiety or depression Michael/Lymph: Denies: easy bruising PFS ED PFSH: Medical History On high dose antipsychotic drug therapy Other schizophrenia 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 Const: COMMON NORMALS: no acute distress and average body habitus GENERAL APPEARANCE: well kempt HENMT: COMMON NORMALS: normocephalic HEAD & SCALP: normal to inspection and normocephalic FACE & SINUS: normal facial exam Eye: COMMON NORMALS: conjunctivae normal GENERAL EYE: appearance normal, both eyes and all related structures CONJUNCTIVA: Yes conjunctivae normal Neck/C-Spine: COMMON NORMALS: no JVD Chest: COMMONS NORMALS: normal inspection of the chest Resp: COMMON NORMALS: normal respiratory effort and clear to auscultation bilaterally AUSCULTATION: clear to auscultation bilaterally Cardio: COMMON NORMALS: no JVD and regular rhythm RATE: tachycardic RHYTHM: regular rhythm GI: COMMON NORMALS: Normal to inspection, nondistended, normoactive bowel sounds present Extremity: COMMON NORMALS: normal to inspection and full ROM Neuro: KLEBER COMA SCALE: other (Does not appear to be postictal) COMMON NORMALS: moves all extremities, no focal motor deficits and no sensory deficits noted Psych: COMMON NORMALS: denies homicidal ideation and denies suicidal ideation APPEARANCE: Yes well kempt ATTITUDE: Yes bizarre and Yes agitated ACTIVITY/MOTOR BEHAVIOR: Yes fidgeting, Yes hyperactivity and Yes disorganized behavior SPEECH: Yes excessive, Yes rapid and Yes slurred MOOD & AFFECT: Yes anxious THOUGHT PROCESS: disorganized THOUGHT CONTENT: Yes Hallucination(s) present auditory ATTENTION/CONCENTRATION: Yes concentration grossly intact INSIGHT: questionable JUDGEMENT: questionable MDM - Psych MDM Narrative: Medical decision making narrative: I spoke with Dr. Gee Mcmahon he agrees to take as an admission Lab Data: Labs: Lab Results 12/19/20 12/19/20 12/19/20 Range/Units 09:37 09:37 10:00 WBC 12.4 H (4.0-10.0) 10^3/ uL RBC 5.27 (4.1-5.3) 10^6/u L Hgb 17.1 H (11.7-16.6) g/dL Hct 48.7 (42.0-52.0) % MCV 92.4 (80-94) fL MCH 32.4 (28.0-34.0) pg MCHC 35.1 (30.0-36.0) g/dL RDW 11.8 L (12.1-15.1) % Plt Count 216 (130-400) 10^3/c mm MPV 11.2 H (7.4-10.4) fL Neut % (Auto) 66.3 % Lymph % (Auto) 23.4 % [place] % (Auto) 8.2 % Eos % (Auto) 1.1 % Baso % (Auto) 0.8 % Neut # (Auto) 8.22 H (1.8-7.7) 10^3/u L Lymph # (Auto) 2.9 (0.8-4.8) 10^3/u L [place] # (Auto) 1.0 H (0.2-0.9) 10^3/u L Eos # (Auto) 0.1 (0.0-0.8) 10^3/u L Baso # (Auto) 0.1 (0.0-0.1) 10^3/u L Nucleated RBC % (a uto) 0 % Nucleated RBCs # 0.0 /100WBC Sodium (136-145) mmol/L Potassium (3.5-5.1) mmol/L Chloride (98-107) mmol/L Carbon Dioxide (22-29) mmol/L Anion Gap (5-19) BUN (6-20) mg/dL Creatinine (0.7-1.2) mg/dL GFR Calculation (90-130) mL/min Glucose (65-115) mg/dL Calculated Osmolal ity (285-295) mOsm/k g Calcium (8.5-10.5) mg/dL Total Bilirubin (0.15-1.2) mg/dL AST (0-40) U/L ALT (0-41) U/L Alkaline Phosphata se (40-130) IU/L Total Protein (6.6-8.7) g/dL Albumin (3.5-5.2) g/dL Globulin (1.3-4.6) g/dL Urine Color Yellow (Yellow) Urine Appearance Clear (CLEAR) Urine pH 6 (5-7) Ur Specific Gravit y 1.020 (1.005-1.030) Urine Protein Neg (Negative) Urine Glucose (UA) Norm (Normal) Urine Ketones 1+ H (Negative) Urine Blood Neg (Negative) Urine Nitrate Negative (Negative) Urine Bilirubin 1+ H (Negative) Urine Urobilinogen 8 H (Negative) mg/dL Ur Leukocyte Andree ase Negative (Negative) Salicylates (3-10) mg/dL Urine Opiates Scre en Negative (Negative) ng/mL Acetaminophen (10-30) ug/mL Ur Barbiturates Sc reen Negative (Negative) ng/mL Ur Phencyclidine S crn Negative (Negative) ng/mL Ur Amphetamines Sc reen Positive H (Negative) ng/mL U Benzodiazepines Scrn Negative (Negative) ng/mL Urine Cocaine Scre en Negative (Negative) ng/mL U Marijuana (THC) Screen Negative (Negative) ng/mL 12/19/20 Range/Units 10:00 WBC (4.0-10.0) 10^3/ uL RBC (4.1-5.3) 10^6/u L Hgb (11.7-16.6) g/dL Hct (42.0-52.0) % MCV (80-94) fL MCH (28.0-34.0) pg MCHC (30.0-36.0) g/dL RDW (12.1-15.1) % Plt Count (130-400) 10^3/c mm MPV (7.4-10.4) fL Neut % (Auto) % Lymph % (Auto) % [place] % (Auto) % Eos % (Auto) % Baso % (Auto) % Neut # (Auto) (1.8-7.7) 10^3/u L Lymph # (Auto) (0.8-4.8) 10^3/u L [place] # (Auto) (0.2-0.9) 10^3/u L Eos # (Auto) (0.0-0.8) 10^3/u L Baso # (Auto) (0.0-0.1) 10^3/u L Nucleated RBC % (a uto) % Nucleated RBCs # /100WBC Sodium 137 (136-145) mmol/L Potassium 4.1 (3.5-5.1) mmol/L Chloride 99 (98-107) mmol/L Carbon Dioxide 25 (22-29) mmol/L Anion Gap 17.1 (5-19) BUN 10 (6-20) mg/dL Creatinine 0.7 (0.7-1.2) mg/dL GFR Calculation 138.6 H (90-130) mL/min Glucose 97 (65-115) mg/dL Calculated Osmolal ity 283 L (285-295) mOsm/k g Calcium 9.6 (8.5-10.5) mg/dL Total Bilirubin 0.8 (0.15-1.2) mg/dL AST 14 (0-40) U/L ALT 12 (0-41) U/L Alkaline Phosphata se 86 (40-130) IU/L Total Protein 7.7 (6.6-8.7) g/dL Albumin 5.2 (3.5-5.2) g/dL Globulin 2.5 (1.3-4.6) g/dL Urine Color (Yellow) Urine Appearance (CLEAR) Urine pH (5-7) Ur Specific Gravit y (1.005-1.030) Urine Protein (Negative) Urine Glucose (UA) (Normal) Urine Ketones (Negative) Urine Blood (Negative) Urine Nitrate (Negative) Urine Bilirubin (Negative) Urine Urobilinogen (Negative) mg/dL Ur Leukocyte Andree ase (Negative) Salicylates 0.5 L (3-10) mg/dL Urine Opiates Scre en (Negative) ng/mL Acetaminophen < 5.0 L (10-30) ug/mL Ur Barbiturates Sc reen (Negative) ng/mL Ur Phencyclidine S crn (Negative) ng/mL Ur Amphetamines Sc reen (Negative) ng/mL U Benzodiazepines Scrn (Negative) ng/mL Urine Cocaine Scre en (Negative) ng/mL U Marijuana (THC) Screen (Negative) ng/mL Discharge Plan Discharge Patient Disposition: Admitted As Inpatient Clinical Impression: Methamphetamine dependence Schizophrenia Qualifiers: Schizophrenia type: unspecified Qualified Code(s): F20.9 - Schizophrenia, unspecified Condition: Stable Coding Level of Care Code ED Band Singer for [facility]roy Fwd Exam Comprehensive
--- NOTE | 2020-12-19 09:30 | PC.NURSE ---
pt refusing IM ativan. Pt states he doesn't want to take any meds until he is down in the NPU. Nurse told Pt there is no guarantee that he will be admitted. Pt also states he doesn't want to give a urine sample. Nurse told Pt this is part of the process . we need urine, blood. pt agreed to try
[2020-12-19 10:12] LABS: Basophils # 0.1 10^3/uL (0.0-0.1); Basophils % 0.8 %; Eosinophils # 0.1 10^3/uL (0.0-0.8); Eosinophils % 1.1 %; Hematocrit 48.7 % (42.0-52.0); Hemoglobin 17.1 g/dL (11.7-16.6); Lymphocytes # 2.9 10^3/uL (0.8-4.8); Lymphocytes % 23.4 %; Mean Corpuscular HGB Conc 35.1 g/dL (30.0-36.0); Mean Corpuscular Hemoglobin 32.4 pg (28.0-34.0); Mean Corpuscular Volume 92.4 fL (80-94); Mean Platelet Volume 11.2 fL (7.4-10.4); Monocytes % 8.2 %; Neutrophils # 8.22 10^3/uL (1.8-7.7); Neutrophils % 66.3 %; Nucleated Red Blood Cells % 0 %; Platelet Count 216 10^3/cmm (130-400); Red Blood Count 5.27 10^6/uL (4.1-5.3); Red Cell Distribution Width 11.8 % (12.1-15.1); White Blood Count 12.4 10^3/uL (4.0-10.0)
[2020-12-19 10:17] LABS: Add Urine Microscopic? NO; Charge for UA Resulting for Rev
[2020-12-19 10:31] LABS: Bilirubin Urine 1+ (Negative); Blood Urine Neg (Negative); Glucose Urine UA Norm (Normal); Ketones Urine 1+ (Negative); Leukocyte Esterase Urine Negative (Negative); Nitrate Urine Negative (Negative); Protein Urine Neg (Negative); Urine Appearance Clear (CLEAR); Urine Color Yellow (Yellow); Urobilinogen Urine 8 mg/dL (Negative); pH Urine 6 (5-7)
[2020-12-19 10:32] LABS: Alanine Aminotransferase 12 U/L (0-41); Albumin Level 5.2 g/dL (3.5-5.2); Alkaline Phosphatase 86 IU/L (40-130); Anion Gap 17.1 (5-19); Aspartate Amino Transferase 14 U/L (0-40); Blood Urea Nitrogen 10 mg/dL (6-20); Calcium 9.6 mg/dL (8.5-10.5); Carbon Dioxide 25 mmol/L (22-29); Chloride 99 mmol/L (98-107); Globulin 2.5 g/dL (1.3-4.6); Glomerular Filtration Rate 138.6 mL/min (90-130); Glucose 97 mg/dL (65-115); Osmolality Calculated 283 mOsm/kg (285-295); Potassium 4.1 mmol/L (3.5-5.1); Salicylate 0.5 mg/dL (3-10); Sodium 137 mmol/L (136-145); Total Bilirubin 0.8 mg/dL (0.15-1.2); Total Protein 7.7 g/dL (6.6-8.7)
[2020-12-19 10:35] LABS: Acetaminophen < 5.0 ug/mL (10-30)
[2020-12-19 11:12] LABS: Amphetamines Screen Urine Positive (Negative); Barbiturates Screen Urine Negative (Negative); Benzodiazepines Screen Urine Negative (Negative); Cocaine Screen Urine Negative (Negative); Opiate Screen Urine Negative (Negative); PCP Screen Urine Negative (Negative); THC Screen Urine Negative (Negative)
--- NOTE | 2020-12-19 12:43 | PC.NURSE ---
pt has been offered food and drink multiple times and has declined
[2020-12-19 13:24] VITALS: BP 106/74; PULSE 124; RESP 22; O2SAT 95
[2020-12-19 13:58] LABS: Alcohol Level < 10 mg/dL (0-10)
[2020-12-19 14:00] VITALS: BP 122/67; PULSE 99; RESP 18; TEMP 37.4; O2SAT 96
[2020-12-19] MEDS: OLANZapine 5 mg TABLET PO ×2 (14:39→20:50)
[2020-12-19 20:33] VITALS: RESP 16
--- NOTE | 2020-12-19 23:49 | PC.NURSE ---
PM ASSESSMENT PT IS RESTING IN HIS ROOM, PT DENIES AH/VH/SI/HI, DENIES PAIN, HEART/LUNG SOUNDS ARE WNL, RESPIRATION NORMAL, PATIENT IS EASILY STARTLED, MOVEMENTS OF HEAD AND BODY ARE SPORADIC, TWITCHING, AND JERKY. HIS PUPILS ARE 5MM, HE IS EASY TO WAKE UP,SOMEWHAT GUARDED, HOWEVER, PLEASANT, AND COOPERATIVE WITH STAFF. PT ATTENTION SPAN IS MINIMAL, HE DID EAT THIS EVENING, AND HE CONTINUES TO REST. WILL CONTINUE TO MONITOR.
[2020-12-20 06:00] VITALS: BP 103/57; PULSE 76; RESP 18; TEMP 36.6; O2SAT 98
[2020-12-20] MEDS: OLANZapine 5 mg TABLET PO ×2 (09:49→20:14)
--- NOTE | 2020-12-20 10:58 | PM.NHP ---
Providers/Chief Complaint Admitting Physician: Elke Guardado DO Chief Complaint: MHE HPI NPU History of Present Illness Landry Coates is a 25 year old male with reported history of schizophrenia although patient also reports frequent use of methamphetamine since the age of 15. Patient is a poor historian and unable to ascertain any information consistent with periods of sobriety with ongoing disorganization of speech or behavior or perceptual disturbances outside of the context of ongoing substance use. Patient presented to the emergency department stating that he was out of his Zyprexa although on multiple previous admissions patient states that he never opened the bottle of his medication or took his medication and would often times say that he does not need medication and does not need any help for his addiction. Patient could not initially be interviewed yesterday because of severe motor tics and automatisms including involuntary movement of his arms, lip smacking and tongue protrusion and chewing. Patient eventually agreed to take olanzapine and subsequently showed some improvement the following morning. Patient states that he does not feel like he needs any help and reports that he has no interest in substance treatment. He currently denies any auditory or visual hallucinations and currently denies any paranoia. He denies any mood symptoms, denies any depressed symptoms, denies any suicidal ideation or thoughts about self-harm. Patient reports that he did use methamphetamine right before presenting to the hospital but states that he has not used for several months although he does presented to this inpatient psychiatric unit less than a month ago under the same circumstances after using methamphetamine. He is unable to recall or report last follow-up with outpatient mental health. 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 Denies any history of suicide attempt or self-harm behavior. Mental Status Exam MSE Comments: Patient is somewhat fidgety, initially lying down but subsequently stands up and is moving around in his room, fair eye contact, restless but no agitation Speech is with frequent hesitation, normal volume, not pressured, fair articulation I feel fine, constricted affect, not labile Alert and oriented to person, place, time Memory and concentration are poor for recent events with significant delays to recall past events per interview Intellectual functioning appears to be below average based on vocabulary, interview Thought process, delayed, linear but brief, no flight of ideas, no looseness of associations Thought content, no delusions, does not appear to be attending to any internal stimuli, no suicidal or homicidal ideation Insight and judgment appear to be fair at best Vitals/I&O/Wt Last Vital Signs Temp 97.9 F 12/20/20 06:00 Pulse 76 12/20/20 06:00 Resp 18 12/20/20 06:00 BP 103/57 12/20/20 06:00 Pulse Ox 98 12/20/20 06:00 Weight last 48 hrs Weight 68.039 kg Data NPU : 12/19/20 10:00 12/19/20 10:00 A&P Assessment and plan (1) Methamphetamine dependence: Status: Acute (2) Schizophrenia: Status: Acute Qualifiers: Schizophrenia type: unspecified Qualified Code(s): F20.9 - Schizophrenia, unspecified Additional A&P Information Patient presenting with urine drug screen positive for methamphetamine with clinical signs of acute methamphetamine intoxication to include motor tics, automatisms with difficulty participating in interview yesterday and somewhat reluctant and poor historian today. Patient continues to appear to have some cognitive decrements related to acute intoxication and would benefit from ongoing evaluation with regards to any contribution from underlying thought disorder. VOLUNTARY ADMIT to inpatient psychiatry CONTINUE olanzapine 5 mg twice daily targeting psychotic symptoms Coordinate with healthcare social worker for post discharge care/follow-up Involuntary Hold Information 96 Hour Hold: 96 Hour Involuntary Admission: No Attestations NPU Medical Necessity Statement*: Requires inpatient psychiatric hospitalization for medication stabilization, coordination for safe discharge Anticipate hospital stay to exceed 2 midnights Time Spent in Patient Care: Greater than 35 minutes (>than 50% of time spent in counselling and/or direct pt care on unit). Coding Level of Care Code Acute Retail Account Representative for [facility]roy Lozano Diagnoses Methamphetamine dependence F15.20 Schizophrenia F20.9 Schizophrenia type: unspecified
[2020-12-20 14:00] VITALS: BP 102/59; PULSE 67; RESP 18; TEMP 36.1; O2SAT 94
--- NOTE | 2020-12-20 16:33 | PC.RESP ---
Smoking Cessation information sent to patient.
[2020-12-20 20:39] VITALS: BP 72/39; PULSE 76; RESP 17; TEMP 36.7; O2SAT 97
--- NOTE | 2020-12-20 23:34 | PC.NURSE ---
PM ASSESSMENT PT V/S ARE NORMAL WITH EXCEPTION OF LOW BP OF 72/39 WITH MANUAL CUFF, AUTOMATIC CUFF CONFIRMED, PT WAS SLEEPING, EASILY AROUSED BY VERBAL STIMULATION, HEART/LUNG SOUNDS ARE WNL, PT DENIES PAIN AT THIS TIME, PT DENIES SI/HI, DENIES AH/VH. PT IS LESS SPORADIC WITH HIS MOVEMENTS, QUIET SPOKEN, AND EYES DOWNCAST WHILE SPEAKING TO NURSE. PT DID TALK ABOUT HIS USE OF METH, SAYS HE ATE IT THIS TIME, AND THIS IS WHAT IT DID TO ME EDUCATED ON METH USE, COMPLICATIONS, BETTER CHOICES, SUPPORT AVAILABLE, AND WHEN TO ASK FOR HELP. PT IS QUIET AND WENT TO BED EARLY. WILL CONTINUE TO OBSERVE.
[2020-12-21 06:00] VITALS: BP 99/55; PULSE 78; RESP 16; TEMP 36.6; O2SAT 98
[2020-12-21] MEDS: OLANZapine 5 mg TABLET PO (09:01)
[2020-12-21 12:06] VITALS: BP 99/55; PULSE 78; RESP 16; TEMP 36.6; O2SAT 98
--- NOTE | 2020-12-21 12:08 | P.DS_ITS ---
Diagnoses at Discharge Discharge Diagnosis (1) Methamphetamine dependence: Status: Acute (2) Schizophrenia: Status: Acute Qualifiers: Schizophrenia type: unspecified Qualified Code(s): F20.9 - Schizophrenia, unspecified Reason for Visit Reason for Visit: [facility] Hospital Course Hospital Course 25 year old male with reported history of schizophrenia although patient also reports frequent use of methamphetamine since the age of 15. Patient is a poor historian and unable to ascertain any information consistent with periods of sobriety with ongoing disorganization of speech or behavior or perceptual disturbances outside of the context of ongoing substance use. Patient presented to the emergency department stating that he was out of his Zyprexa although on multiple previous admissions patient states that he never opened the bottle of his medication or took his medication and would often times say that he does not need medication and does not need any help for his addiction. Patient could not initially be interviewed yesterday because of severe motor tics and automatisms including involuntary movement of his arms, lip smacking and tongue protrusion and chewing. Patient tolerated restarting olanzapine well with no reported medication side effects and quickly reconstituted with disappearance of motor tics related to amphetamine intoxication. Patient denied any mood symptoms, denied any depressed symptoms, denied any suicidal ideation. He denied any psychotic symptoms, denies any paranoid delusions, denies any auditory or visual hallucinations. Patient states he has no interest in seeking outpatient or residential substance treatment but reports that he will follow-up with [facility] for outpatient medication management. Patient was not suicidal and did not appear to pose an imminent threat of harm to self or others at the time of discharge. Low to moderate risk given no current suicidal ideation and no current report of any psychiatric symptoms although patient's risk will continue to be elevated if he continues to abuse illicit substances or uses alcohol leading to unexpected, impulsive behavior. Risk mitigation included psychiatric hospitalization, medication stabilization as well as recommendation to abstain from the use of substances and alcohol and the need for compliance with his medication, medication management follow-up and substance counseling/treatment. Patient was able to communicate his understanding of the need to abstain from the use of substances and alcohol as well as the need for compliance with his medication, medication management and substance counseling/treatment in order to further mitigate his risk of harm to self and others. Involuntary Hold Information 96 Hour Hold: 96 Hour Involuntary Admission: No Mental Status Exam MSE Comments: Lying in bed, appropriately groomed and dressed, calm, cooperative, good eye contact Speech is normal rate and volume, spontaneous, not pressured, fair articulation I feel good, constricted affect, not labile Alert and oriented to person, place, time Memory and concentration are fair per interview Thought process, occasional delays, linear but brief, no flight of ideas, no looseness of associations Thought content, no delusions, no hallucinations, no suicidal or homicidal ideation Insight and judgment appear to be fair at best Discharge Data Vitals: Last Vital Signs Temp 97.8 F 12/21/20 06:00 Pulse 78 12/21/20 06:00 Resp 16 12/21/20 06:00 BP 99/55 12/21/20 06:00 Pulse Ox 98 12/21/20 06:00 Discharge Plan Discharge Patient Disposition: Home Condition: Stable Prescriptions: New olanzapine 5 mg Tablet 5 mg PO 0900,2100 Qty: 60 RF: 0 Continued pantoprazole 40 mg tablet,delayed release (DR/EC) 40 mg PO DAILY 30 Days Qty: 30 RF: 1 Discontinued olanzapine [Zyprexa] 15 mg tablet 15 mg PO DAILY 30 Days Qty: 30 RF: 1 Discharge Orders: Discharge Order (Routine); Ordered 12/21/20 Ordered By: Elke Guardado Referrals: Amina Moore PMHNP [Staff Physician] - 01/01/21 1:15 pm (Appointment will be in office, call if you need to change to a phone appointment.) Discharge Diet: Regular Discharge Activity: Resume usual activity Patient Instructions: Olanzapine (By mouth), Methamphetamine Abuse (DC), Opioid Safety Discharge Attestations NPU Time Spent in Discharge Care*: greater than 30 min Status at Discharge: Cognitive status at discharge: cognitively intact , Behavioral status at discharge: cooperative , Functional status at discharge: independent ambulation Overall status at discharge: patient is back to baseline Coding Level of Care Code Acute [place] Splitter for [facility] Fwd Diagnoses Methamphetamine dependence F15.20 Schizophrenia F20.9 Schizophrenia type: unspecified
[2020-12-21 12:09] VITALS: BP 99/55; PULSE 78; RESP 16; TEMP 36.6; O2SAT 98
[2020-12-21 13:29] VITALS: BP 102/63; PULSE 77; RESP 17; TEMP 36.7
== END 2020-12-21 14:52 | disposition home or self-care (01) | DRG 897 ==
LOC: ER 11:24 → NP 13:18
PROVIDERS: Admitting Provider Psychiatry & Neurology Psychiatry; Emergency Provider Nurse Practitioner Family; Visit Provider Psychiatry & Neurology Psychiatry
DX: F15.229 Other stimulant dependence with intoxication, unspecified (principal); F20.9 Schizophrenia, unspecified
CPT/HCPCS: 36415; 80053; 80306; 80307; 81003; 85025; 99285

== ENCOUNTER 2020-12-28 10:31 | Inpatient (IN) | payer MEDICARE, MEDICAID, SELFPAY ==
[2020-12-28] VITALS (7 sets, daily range): BP systolic 113–124; BP diastolic 69–95; PULSE 105–126; RESP 15–20; TEMP 36.4–37.1; O2SAT 96–98; BMI 19.0
--- NOTE | 2020-12-28 10:50 | W.ED.AMS ---
HPI - Altered Mental Status General: Chief Complaint: Altered Mental Status Stated Complaint: drug abuse Time Seen by Provider: 12/28/20 10:36 History of Present Illness: HPI narrative: Presents with a history of schizophrenia and methamphetamine abuse. Patient is not taking medications. Patient has appointment with [facility] [place] on and patient says he cannot wait to that time. Says he needs help now. Denies suicidal or homicidal intentions. MD complaint: other (Methamphetamine abuse) Onset (ago): year(s) Associated symptoms: Reports no associated symptoms; Deny depression Review of Systems Const: Denies: fever(s), chills or body aches Eyes: Denies: change in vision or blurry vision ENMT: Denies: throat pain or nasal congestion Card: Denies: chest pain or dyspnea on exertion Resp: Denies: dyspnea, productive cough or non-productive cough GI: Denies: abdominal pain, nausea or vomiting : Denies: difficulty urinating Musc: Denies: extremity pain Skin/Breast: Denies: rash Neuro: Denies: headache(s) Psych: Reports: anxiety, mood swings, paranoia, difficulty concentrating and other (Says he has been using methamphetamines and not taking his schizophrenic me); Denies: depression Michael/Lymph: Denies: easy bruising PFSH ED PFSH: Medical History On high dose antipsychotic drug therapy Other schizophrenia 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 Resp: COMMON NORMALS: normal respiratory effort Cardio: RATE: tachycardic Psych: APPEARANCE: Yes grossly normal ATTITUDE: Yes paranoid and Yes bizarre ACTIVITY/MOTOR BEHAVIOR: Yes fidgeting, Yes hyperactivity and Yes disorganized behavior SPEECH: Yes excessive and Yes rapid THOUGHT PROCESS: disorganized THOUGHT CONTENT: No Suicidality present and No Homicidality present Course Vital Signs: Vital signs: Vital Signs Temperature 98.6 F 12/28/20 10:35 Pulse Rate 109 H 12/28/20 10:35 Respiratory Rate 15 12/28/20 10:35 Blood Pressure 113/85 12/28/20 10:35 Pulse Oximetry 98 12/28/20 10:41 Discharge Plan Discharge Prescriptions: No Action pantoprazole 40 mg tablet,delayed release (DR/EC) 40 mg PO DAILY 30 Days Qty: 30 RF: 1 olanzapine 5 mg Tablet 5 mg PO 0900,2100 Qty: 60 RF: 0 Coding Level of Care Code ED Field Education Coordinator for Froy Lozano
[2020-12-28 11:16] LABS: Basophils # 0.1 10^3/uL (0.0-0.1); Basophils % 0.5 %; Eosinophils % 0.1 %; Hematocrit 42.7 % (42.0-52.0); Hemoglobin 15.3 g/dL (11.7-16.6); Lymphocytes # 2.6 10^3/uL (0.8-4.8); Lymphocytes % 16.9 %; Mean Corpuscular HGB Conc 35.8 g/dL (30.0-36.0); Mean Corpuscular Hemoglobin 32.1 pg (28.0-34.0); Mean Corpuscular Volume 89.5 fL (80-94); Mean Platelet Volume 11.1 fL (7.4-10.4); Monocytes # 1.6 10^3/uL (0.2-0.9); Monocytes % 10.3 %; Neutrophils % 71.9 %; Nucleated Red Blood Cells % 0 %; Platelet Count 257 10^3/cmm (130-400); Red Blood Count 4.77 10^6/uL (4.1-5.3); Red Cell Distribution Width 11.7 % (12.1-15.1); White Blood Count 15.6 10^3/uL (4.0-10.0)
[2020-12-28 11:28] LABS: Amphetamines Screen Urine Positive (Negative); Barbiturates Screen Urine Negative (Negative); Benzodiazepines Screen Urine Negative (Negative); Cocaine Screen Urine Negative (Negative); Opiate Screen Urine Negative (Negative); PCP Screen Urine Negative (Negative); THC Screen Urine Negative (Negative)
[2020-12-28 11:33] LABS: Blood Urine Neg (Negative); Glucose Urine UA Norm (Normal); Ketones Urine 1+ (Negative); Protein Urine 1+ (Negative); Specific Gravity, Urine 1.025 (1.005-1.030); Urine Appearance Clear (CLEAR); Urine Color Dark Yellow (Yellow); pH Urine 5 (5-7)
[2020-12-28 11:35] LABS: Add Urine Microscopic? YES; Bilirubin Urine 1+ (Negative); Leukocyte Esterase Urine Negative (Negative); Nitrate Urine Negative (Negative); Urobilinogen Urine 4 mg/dL (Negative); WBC Urine 0-4 /hpf (0-5)
[2020-12-28 11:35] LABS: Alanine Aminotransferase 18 U/L (0-41); Albumin Level 4.8 g/dL (3.5-5.2); Alkaline Phosphatase 79 IU/L (40-130); Anion Gap 16.7 (5-19); Aspartate Amino Transferase 32 U/L (0-40); Blood Urea Nitrogen 13 mg/dL (6-20); Calcium 9.2 mg/dL (8.5-10.5); Carbon Dioxide 26 mmol/L (22-29); Chloride 98 mmol/L (98-107); Globulin 2.3 g/dL (1.3-4.6); Glomerular Filtration Rate 91.8 mL/min (90-130); Glucose 93 mg/dL (65-115); Osmolality Calculated 284 mOsm/kg (285-295); Potassium 3.7 mmol/L (3.5-5.1); Sodium 137 mmol/L (136-145); Total Bilirubin 1.1 mg/dL (0.15-1.2); Total Protein 7.1 g/dL (6.6-8.7)
[2020-12-28 11:36] LABS: Add Urine Culture? No; Bacteria Urine TRACE /hpf; Mucus Urine TRACE /hpf
[2020-12-28 11:59] LABS: Acetaminophen < 5.0 ug/mL (10-30); Salicylate < 0.3 mg/dL (3-10)
[2020-12-28] MEDS: OLANZapine 5 mg TABLET PO ×2 (13:00→20:23)
[2020-12-29 05:16] VITALS: BMI 19.0
[2020-12-29 06:00] VITALS: BP 101/62; PULSE 69; RESP 16; TEMP 36.8; O2SAT 94
[2020-12-29] MEDS: OLANZapine 5 mg TABLET PO ×2 (08:28→20:51)
--- NOTE | 2020-12-29 10:37 | P.HP_ITS ---
Providers/Chief Complaint Admitting Physician: Elke Guardado DO Chief Complaint: AMS HPI NPU History of Present Illness Landry Coates is a 25 year old male with longstanding history of methamphetamine abuse with multiple hospitalization over the past couple months presented to the emergency department with amphetamine induced motor tics with acute amphetamine intoxication requesting hospitalization with following residential substance treatment. Currently denying any suicidal ideation and denying any recent mood symptoms. Reports being noncompliant with his antipsychotic post discharge. Psychiatric review of systems is otherwise negative. 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, unspecified Other stimulant dependence, uncomplicated Social History Smoking and tobacco status: current every day smoker cigarettes Packs smoked per day: 1 Smoking risk assessment/counseling performed?: Yes Tobacco counseling given: counseling >3 minutes Alcohol intake: former Substance/Drug Use: current Substance/Drug use type: Amphetamines and Methamphetamine Other Psychiatric History: Other Psychiatric History: No change since last admission on H&P by this interviewer dated 12/20/2020 Mental Status Exam MSE Comments: Lying in bed, fidgety, fair eye contact, restless but no agitation Speech is with frequent hesitation, normal volume, not pressured, fair articulation A little better, constricted affect, not labile Alert and oriented to person, place, time Memory and concentration are poor for recent events with significant delays to recall past events per interview Intellectual functioning appears to be below average based on vocabulary, interview Thought process, delayed, linear but brief, no flight of ideas, no looseness of associations Thought content, no delusions, does not appear to be attending to any internal stimuli, no suicidal or homicidal ideation Insight and judgment appear to be fair at best Vitals/I&O/Wt Last Vital Signs Temp 98.3 F 12/29/20 06:00 Pulse 69 12/29/20 06:00 Resp 16 12/29/20 06:00 BP 101/62 12/29/20 06:00 Pulse Ox 94 12/29/20 06:00 Weight last 48 hrs Weight 63.503 kg Weight 63.503 kg Data NPU : 12/28/20 10:59 12/28/20 10:59 A&P Assessment and plan (1) Schizophrenia: Status: Acute Qualifiers: Schizophrenia type: other Qualified Code(s): F20.89 - Other schizophrenia (2) Methamphetamine dependence: Status: Acute Additional A&P Information Presents with methamphetamine intoxication with motor tics, automatisms with difficulty participating in interview yesterday. Patient continues to appear to have some cognitive decrements related to acute intoxication and would benefit from ongoing evaluation with regards to any contribution from underlying thought disorder. Patient does indicate interest in following residential substance treatment. VOLUNTARY ADMIT to inpatient psychiatry CONTINUE olanzapine 5 mg twice daily targeting psychotic symptoms Coordinate with social sciences department chair for post discharge care/follow-up Involuntary Hold Information 96 Hour Hold: 96 Hour Involuntary Admission: No Attestations NPU Medical Necessity Statement*: Requires psychiatric hospitalization for medication stabilization, coordination for safe discharge Anticipate hospital stay to exceed 2 midnights Time Spent in Patient Care: Greater than 35 minutes (>than 50% of time spent in counselling and/or direct pt care on unit) . Coding Level of Care Code Acute Driver License Agent for [facility] Diagnoses Schizophrenia F20.89 Schizophrenia type: other Methamphetamine dependence F15.20
[2020-12-29 13:34] VITALS: BP 103/67; PULSE 72; RESP 18; TEMP 36.8
[2020-12-29 21:21] VITALS: BP 110/69; PULSE 86; RESP 17; TEMP 37.8; O2SAT 94
--- NOTE | 2020-12-30 05:02 | PC.NURSE ---
PM assessment v/s are normal with the exception of his temp which was low grade temp of 100.1, heart/lung sounds are wnl, denies pain, denies SI/HI, DENIES AH/VH, PT INTERACTS APPROPRIATELY WITH STAFF, CALM AND COOPERATIVE, WILL CONTINUE TO OBSERVE.
[2020-12-30 06:00] VITALS: BP 113/65; PULSE 72; RESP 18; TEMP 37; O2SAT 96
[2020-12-30] MEDS: OLANZapine 5 mg TABLET PO ×2 (08:06→20:22)
[2020-12-30 13:53] VITALS: BP 116/75; PULSE 68; RESP 16; TEMP 36.8; O2SAT 98
--- NOTE | 2020-12-30 13:56 | PM.NPN ---
Subjective NPU Subjective: Interval history: Patient reports some improvement since yesterday, denies any muscular jerking or restlessness Reports that he slept well last night, feels rested Reports having a good appetite Denies any interval depressive symptoms, denies any suicidal ideation Denies any auditory or visual hallucinations, denies any delusions Patient initially stating that he was not interested in substance rehabilitation but then states that he is interested in going to residential substance treatment Reports being compliant with his medication, denies any medication side effects Mental Status Exam MSE Comments: Sitting up in bed, appropriately groomed and dressed in hospital scrubs, calm, cooperative, good eye contact Speech is normal rate and volume, spontaneous, not pressured, fair articulation I feel okay, constricted affect, not labile Alert and oriented to person, place, time Memory and concentration are fair per interview Thought process, occasional delays, linear but brief, no flight of ideas, no looseness of associations Thought content, no delusions, no hallucinations, no suicidal or homicidal ideation Insight and judgment appear to be fair at best Vitals/I&O/Wt Last Vital Signs Temp 98.2 F 12/30/20 13:53 Pulse 68 12/30/20 13:53 Resp 16 12/30/20 13:53 BP 116/75 12/30/20 13:53 Pulse Ox 98 12/30/20 13:53 Weight last 48 hrs Weight 63.503 kg Data NPU : 12/28/20 10:59 12/28/20 10:59 A&P Assessment and plan (1) Schizophrenia: Status: Acute Qualifiers: Schizophrenia type: other Qualified Code(s): F20.89 - Other schizophrenia (2) Methamphetamine dependence: Status: Acute Additional A&P Information Patient reports improvement in his withdrawal symptoms, denies any psychotic symptoms, reports tolerating medication well and states that he is interested in substance rehabilitation. CONTINUE current medication, continue to monitor Coordinate with social service liaison for post discharge residential substance treatment Involuntary Hold Information 96 Hour Hold: 96 Hour Involuntary Admission: No Attestations NPU Medical Necessity Statement*: Continues to require psychiatric hospitalization for medication stabilization, coordination for safe discharge Coding Level of Care Code Acute Ux Information Architect for [facility] Fw Diagnoses Schizophrenia F20.89 Schizophrenia type: other Methamphetamine dependence F15.20
[2020-12-30 19:55] VITALS: BP 103/61; PULSE 72; RESP 19; TEMP 36.9; O2SAT 96
[2020-12-31 06:00] VITALS: BP 111/65; PULSE 64; RESP 18; TEMP 36.3; O2SAT 94
[2020-12-31] MEDS: OLANZapine 5 mg TABLET PO ×2 (07:46→21:14)
--- NOTE | 2020-12-31 10:57 | P.PN_ITS ---
Subjective NPU Subjective: Interval history: Reports continued improvement with no interval muscle jerking or restlessness Denies any interval anxiety symptoms, denies any interval panic symptoms Denies any interval mood symptoms, denies any suicidal ideation Denies any auditory or visual hallucinations, denies any delusions Reports being compliant with his medication, denies any medication side effects Mental Status Exam MSE Comments: Lying in bed, calm, cooperative, appropriately groomed and gibson ssed, good eye contact Speech is normal rate and volume, spontaneous, not pressured, fair articulation Fine, constricted affect, not labile Alert and oriented to person, place, time Memory and concentration are fair per interview Thought process, linear but brief, no flight of ideas, no looseness of associations Thought content, no delusions, no hallucinations, no suicidal or homicidal ideation Insight and judgment appear to be fair at best Vitals/I&O/Wt Last Vital Signs Temp 97.3 F L 12/31/20 06:00 Pulse 64 12/31/20 06:00 Resp 18 12/31/20 06:00 BP 111/65 12/31/20 06:00 Pulse Ox 94 12/31/20 06:00 Data NPU : 12/28/20 10:59 12/28/20 10:59 A&P Assessment and plan (1) Schizophrenia: Status: Acute Qualifiers: Schizophrenia type: other Qualified Code(s): F20.89 - Other schizoph eliel (2) Methamphetamine dependence: Status: Acute Additional A&P Information Continued improvement CONTINUE current medication, continue monitor Continue coordination with social service agency director for post discharge care Involuntary Hold Information 96 Hour Hold: 96 Hour Involuntary Admission: No Attestations NPU Medical Necessity Statement*: Requires psychiatric hospitalization for medication stabilization, coordination for safe discharge Coding Level of Care Code Acute Parachute Officer for [facility] Fw Diagnoses Schizophrenia F20.89 Schizophrenia type: other Methamphetamine dependence F15.20
[2020-12-31 14:00] VITALS: BP 111/56; PULSE 72; RESP 18; TEMP 37.2; O2SAT 96
[2020-12-31 22:00] VITALS: BP 109/67; PULSE 74; RESP 18; TEMP 37.2; O2SAT 98
[2021-01-01 06:00] VITALS: BP 111/66; PULSE 60; RESP 20; TEMP 36.8; O2SAT 97
[2021-01-01] MEDS: OLANZapine 5 mg TABLET PO ×2 (08:58→19:38)
--- NOTE | 2021-01-01 10:40 | P.PN_ITS ---
Subjective NPU Subjective: Interval history: Denies any auditory or visual hallucinations, denies any delusions Denies any interval anxiety symptoms, denies any interval panic symptoms Denies any interval mood symptoms, denies any suicidal ideation Reports being compliant with his medication, denies any medication side effects Mental Status Exam MSE Comments: Initially lying in bed stands up for interview, continues to be somewhat awkward and odd in his social interactions but is calm, cooperative, appropriately groomed and dressed, good eye contact Speech is normal rate and volume, spontaneous, not pressured, fair articulation I am okay, constricted affect, not labile Alert and oriented to person, place, time Memory and concentration are fair per interview Thought process, linear but brief, no flight of ideas, no looseness of associations Thought content, no delusions, no hallucinations, no suicidal or homicidal ideation Insight and judgment appear to be fair at best Vitals/I&O/Wt Last Vital Signs Temp 98.2 F 01/01/21 06:00 Pulse 60 01/01/21 06:00 Resp 20 H 01/01/21 06:00 BP 111/66 01/01/21 06:00 Pulse Ox 97 01/01/21 06:00 Data NPU : 12/28/20 10:59 12/28/20 10:59 A&P Assessment and plan (1) Schizophrenia: Status: Acute Qualifiers: Schizophrenia type: other Qualified Code(s): F20.89 - Other schizophrenia (2) Methamphetamine dependence: Status: Acute Additional A&P Information Denies any interval changes CONTINUE current medication, continue to monitor Involuntary Hold Information 96 Hour Hold: 96 Hour Involuntary Admission: No Attestations NPU Medical Necessity Statement*: Continues to require psychiatric hospitalization for medication stabilization, coordination for safe discharge Coding Level of Care Code Acute Dimension Warehouse Supervisor for [facility] Fwd Diagnoses Schizophrenia F20.89 Schizophrenia type: other Methamphetamine dependence F15.20
[2021-01-01 14:00] VITALS: BP 116/56; PULSE 74; RESP 18; TEMP 36.8; O2SAT 96
[2021-01-01] MEDS: nicotine 2 mg Gum BUCCAL (15:20)
--- NOTE | 2021-01-01 17:11 | PC.RESP ---
Smoking Cessation information sent to patient.
--- NOTE | 2021-01-01 18:57 | P.PN_ITS ---
NPU Therapy Progress Note Therapy Progress Note Date: 01/01/21 Time In: 18:45 Time Out: 18:50 Symptoms Reported: none reported Mood: sleepy Progress Note: TURBOGENERATOR OPERATOR knocked on Landry's door as he was resting quietly in bed. TURBOGENERATOR OPERATOR introduced herself and offered to speak with Landry about [facility] service and/or discuss any emotional issues he may be experiencing; however, Landry declines. Is is aware of [facility] location and was encouraged to let staff know should he become interested in following up with outpatient services. Intervention: TURBOGENERATOR OPERATOR attempted to engage Landry in conversation; however, he politely declines. Reported Goals Before Discharge: none reported.
--- NOTE | 2021-01-01 18:57 | PM.NPTHER ---
NPU Therapy Progress Note Therapy Progress Note Date: 01/01/21 Time In: 18:45 Time Out: 18:50 Symptoms Reported: none reported Mood: sleepy Progress Note: WOMEN DESIGNER knocked on Landry's door as he was resting quietly in bed. WOMEN DESIGNER introduced herself and offered to speak with Landry about [facility] service and/or discuss any emotional issues he may be experiencing; however, Landry declines. Is is aware of [facility] location and was encouraged to let staff know should he become interested in following up with outpatient services. Intervention: WOMEN DESIGNER attempted to engage Landry in conversation; however, he politely declines. Reported Goals Before Discharge: none reported.
[2021-01-01 20:08] VITALS: BP 117/79; PULSE 95; RESP 19; TEMP 36.4; O2SAT 96
[2021-01-02 06:00] VITALS: BP 110/63; PULSE 63; RESP 18; TEMP 37.3; O2SAT 96
[2021-01-02] MEDS: OLANZapine 5 mg TABLET PO ×2 (08:22→19:59)
[2021-01-02 14:00] VITALS: BP 110/59; PULSE 73; RESP 18; TEMP 36.6; O2SAT 100
--- NOTE | 2021-01-02 14:21 | P.PN_ITS ---
Subjective NPU Subjective: Interval history: Landry presents today reporting that he is doing a little better. He is known to this health technical writer from multiple previous admissions and he appears to be resolving his psychosis. He acknowledges that his continued addiction has led to him being here again and that he is planning to go to rehab. According to him and staff confirmation he will discharge tomorrow morning for treatment. We discussed that we would make sure that his medications were here today so that there would be no limitations on how early they would be able to pick him up. He reports he is eating okay and sleeping well but he knowledges that he still has thought disorder present from his current use. Mental Status Exam MSE Comments: This is a slender white male in hospital scrubs with adequate grooming and eye contact. No abnormal movements. Cooperative with exam in no acute distress, but appearing little anxious about exactly how discharge will occur and making sure he has the stuff he will need since he will be gone for a while. Speech was normal rate and volume with limited prosody. Mood described as better, affect congruent but flat. Thought process organized. Thought content: Patient denied suicidal or homicidal ideation, there are no delusions reported or noted, he denied auditory or visual hallucinations. Attention and concentration were intact and memory was mostly reliable but none were formally tested. He is alert and oriented x3. Insight and judgment are fair and impulse control is limited, but improving. Vitals/I&O/Wt Last Vital Signs Temp 99.1 F 01/02/21 06:00 Pulse 63 01/02/21 06:00 Resp 18 01/02/21 06:00 BP 110/63 01/02/21 06:00 Pulse Ox 96 01/02/21 06:00 Data NPU : 12/28/20 10:59 12/28/20 10:59 A&P Additional A&P Information (1) Schizophrenia: (2) Methamphetamine dependence: This is a 25-year-old white male well-known to the neuropsychiatric unit presenting with continued active addiction with psychosis with a history of schizophrenia who presents with medications restarted and with a plan for sober living treatment which will begin tomorrow when the facility picks him up. 1. Continue current medication. 2. Continue every 15 minute checks for safety. 3. Encourage individual, group and milieu therapies. 4. Encourage sober living treatment after discharge at the highest level of care to which he is willing to commit. Involuntary Hold Information 96 Hour Hold: 96 Hour Involuntary Admission: No Attestations NPU Medical Necessity Statement*: Inpatient hospitalization is medically necessary and the clinically appropriate intervention at this time. We will monitor medications and make changes as indicated. Plan for discharge in the morning to definitive sober living treatment. Coding Level of Care Code Acute Hand Mold Maker for [facility]
[2021-01-02] MEDS: nicotine 2 mg Gum BUCCAL (16:06)
[2021-01-02 21:20] VITALS: BP 110/49; PULSE 69; RESP 18; TEMP 36.6; O2SAT 96
--- NOTE | 2021-01-03 05:07 | P.DS_ITS ---
Diagnoses at Discharge Discharge Diagnosis (1) Schizophrenia: Status: Acute Qualifiers: Schizophrenia type: other Qualified Code(s): F20.89 - Other schizophrenia (2) Methamphetamine dependence: Status: Acute Reason for Visit Reason for Visit: AMS Brief History: History of Present Illness Landry Coates is a 25 year old male with longstanding history of methamphetamine abuse with multiple hospitalization over the past couple months presented to the emergency department with amphetamine induced motor tics with acute amphetamine intoxication requesting hospitalization with following residential substance treatment. Currently denying any suicidal ideation and denying any recent mood symptoms. Reports being noncompliant with his antipsychotic post discharge. Psychiatric review of systems is otherwise negative. An excerpt from his 11/14/2020 inpatient evaluation is included below for context. Per his 11/14/2020 [facility] inpatient psychiatric evaluation: History of Present Illness Landry Coates is a 25 year old male who presented to the emergency department with the following report: Chief Complaint: Psychiatric Symptoms Stated Complaint: 96 HR HOLD Time Seen by Provider: 11/13/20 17:04 Source: patient and police Mode of arrival: other (PD) Limitations: no limitations History of Present Illness: HPI Narrative: 25-year-old male patient presents to the emergency department today in custody of [facility] department under 96-hour hold. 96-hour hold was instated today, November 13, 2020. He has history of paranoid schizophrenic and PTSD with current history of methamphetamine use per mother. He was punching himself in the face and chewing the inside of his mouth to the point where 1 side was severely swollen. He was also hearing voices per statement on affidavit; patient reports hearing voices, states they are mumbling. Denies suicidal/homicidal thoughts, ideations plans upon exam. He denies illicit substance abuse. Affidavit by Geraldo Jennings stated Mr. Garcia stopped prescribed medication and starting the methamphetamine again. Family reports they are afraid of him. Afraid he is going to hurt them. They are afraid he is going to harm himself. They report he has been talking to himself There is also an additional affidavits from family members, sister stepgrandmother with similar concerns. When asked concerning swelling of the face, he denies what occurred or what caused the suspected infection to the right upper lip. Associated symptoms: Reports auditory hallucinations; Deny depression. He was admitted to the neuropsychiatric unit for definitive treatment of those issues. He presents today reporting that he does not know why he stopped taking the medication. He reports that when he takes it that it is effective but he stopped taking it sometime ago. We discussed the risk benefits and alternatives of possibly considering a long-acting injectable given his nonadherence and he was insistent on resuming the Zyprexa because he reports it is very effective if he takes it. And he understood and agreed to proceed as is documented in his note. He denies any major issues with addiction at this time. He has an abscess on his right upper lip that is causing swelling up towards his right eye stretching to the right of his nose. He was very annoyed by it and is desiring he wanted to go away. He was fairly resistant to the interview but we were able to review information from his last hospitalization and he endorsed that there have been no substantive changes since then. An excerpt is included below. Per his 12/13/2019 [facility] inpatient psychiatric eval: History of Present Illness Landry Coates is a 24 year old male The patient presents today reporting that he has a long history of psychosis as well as addiction, which is currently active. He presented to the emergency room endorsing that he had been off of his medication, and he has been struggling with his addiction. He was open to the idea of exploring a long acting injectable, with hopes that he could not worry about daily dosing, which might improve his adherence as well as his disease progression. We discussed the risks, benefits, and alternatives of resuming Invega, which he had successfully taken in the past, and he understood and agreed to proceed as is documented in this note. We reviewed his most recent evaluation which was in December of 2018, and he endorsed that the psycho-social i nformation was valid. He is a limited historian, at this time. Per last [facility] dc summary: Discharge Summary Date of Admission: Dec 26, 2018 at 14:25 Discharge Date: Jan 09, 2019 Attending Physician: Gladis De La Fuente M.D.; Sanjay Acevedo MD Consulting Physician(s): Discharge Diagnosis: (1) Schizophrenia, paranoid type Status: Chronic (2) Methamphetamine abuse Status: Chronic (3) Noncompliance Status: Chronic Brief History: HPI: Landry Coates is a 23-year-old male who presents for his 13th admission to a psychiatric unit. [facility] in the past 24 months. I do not have access to the emergency room notes. However the according to records, the patient arrived with the police after being picked up for some sort of aggressive behavior. The patient himself denies that there was any problem. He denies that he has a psychiatric problem. He denies that he has used any type of methamphetamine or other substances. He claims that he does not know Emma Sevilla. He admits that Inge Jennings is his mother but claims that the things that she said in her affidavit are untrue. The patient is basically not communicating other than to say that he does not feel he has a problem does not feel he needs to be here. He says I want off of my medication. When asked about that medication he said he didn't know the name said that started with H. He was started on Haldol during his last admission 3 weeks ago. I began asking him questions such as hasn't helped you and were there any side effects . He reported that he never even open the bottle so he has not been taking his medication anyway. Patient then became noncommunicative and would not answer questions. Close to discharge her affidavits by Ms. Jennings and Ms. Sevilla. His mother reports that she feels he is going to kill himself or herself and her . He is not taking medications. He has been neglectful of hygiene she describes him as hypervigilant she states that they have to sleep in her bathroom door locked at night. Ms. Sevilla states that his Hurson Parasi has changed since his last admission. He is not taking his medications. I don't feel safe in my home, ever, I fear that he is going to harm me or my father and even stepmother if she has to get in his way. She describes him as dangerous, aggressive, and that I'm scared to even have to step back into the home with him there. Patient has a well-documented history of schizophrenia and drug abuse. He was hospitalized in January 2017 for 21 days, February 2017 for 5 days, June 2017 for 4 days, June 2017 3 days, July 2017 for 4 days, August 2017 for 6 days, September 2017 for 2 days, December 2017 for 6 days, December 2017 for 2 days, February 2018 for 5 days. Then today he was free of admissions for the next 8 months before being rehospitalized early last month for 3 days and at the end of last month for 3 days. He was admitted on 12/07/2018 and given the diagnoses: (1) Schizophrenia, paranoid type Status: Chronic (2) Methamphetamine abuse Status: Chronic (3) Anxiety Status: Chronic (4) Nicotine dependence, cigarettes, uncomplicated Status: Chronic (5) Noncompliance Status: Chronic He was discharged on oral Haldol. Social history: Patient is not interacting verbally providing any information. He appears to live with his mother, stepfather, and stepsister. He is unemployed. Family psychiatric history: Unknown Past Medical History Past Medical History: Patient is not cooperative with exam. Emergency room records indicate a history of heavy tobacco use but no other medical problems. Data Labs reviewed by provider: Item Value Date Time Urine Opiates Screen NEGATIVE ng/mL 12/26/18 1335 Urine Barbiturates Screen NEGATIVE ng/mL 12/26/18 1335 Urine Phencyclidine Screen NEGATIVE ng/mL 12/26/18 1335 Urine Amphetamines Screen NEGATIVE ng/mL 12/26/18 1335 Urine Benzodiazepines Screen NEGATIVE ng/mL 12/26/18 1335 Urine Cocaine Screen NEGATIVE ng/mL 12/26/18 1335 Urine Marijuana (THC) Screen NEGATIVE ng/mL 12/26/18 1335 Result Diagram: 12/26/18 1311 12/26/18 1311 document embedded image Admission Assessment/Problem List Assessment/Problem List Other Assessment/Problem List: (1) Schizophrenia, paranoid type Status: Acute (2) Methamphetamine abuse Status: Chronic (5) Noncompliance Status: Acute Hospital Course: The patient was admitted to the hospital inpatient psychiatric unit. He was provided a safe, supportive environment and encouraged to participate in individual, group, recreational, and milieu psychotherapies. Staff worked with him on positive coping skills. Medications were reviewed and adjustments were made based on the patient's symptoms and response to treatment. Initially 96 hour hold was discontinued and 21 day hold filed/improved. Patient was started on Invega titrated to 9 mg daily for psychosis/mood stabilization which he tolerated without problems. Staff attempted to obtain collateral information and network with the patient's family regarding his overall status and discharge planning. No family member answered the phone during daily calls to network with them. Affidavits were reviewed which indicated that the patient had ongoing noncompliance with medications at home, chronic self-care deficits, intermittent anger/verbal aggression issues. Family had indicated that they were wanting placement for the patient but had never failed to file for guardianship as recommended by the treatment team during numerous prior psychiatric admissions. As such, the treatment team did agree to file in favor of guardianship with a state appointed guardian. As the patient was still his own guardian, refused placement with no payor source, and had returned to his baseline functioning, he was discharged home. Care management was consulted for medication assistance and discharge planning including recommendation for an outpatient supervisor case loading. Disposition: discharge patient home with local [facility] follow-up for medication management/therapy/case management strongly recommended. Care management to assist with discharge planning. Condition at Discharge: Stable. At time of discharge, the patient was ambulating and taking oral medications without difficulty. He was tolerating all medications without side effects or adverse reactions. He reported improvement in symptoms and resolution of mood lability, self-care failure, and auditory hallucinations. New Medications: Paliperidone Tab (Invega Tab) 9 Mg Tab.osm.24 9 MG PO DAILY, #14 TAB 2 Refills Discontinued Medications: Haloperidol Tab (Haldol Tab) 5 Mg Tablet 5 MG PO DAILY PRN for agitation/psychosis, #14 TAB 2 Refills Hydroxyzine Pamoate Cap (Vistaril Cap) 25 Mg Capsule 25 MG PO QID PRN for FOR ANXIETY, CAP Hospital Course Hospital Course Landry presented to the emergency department with psychosis and continued difficu lty with methamphetamine and concerns about lethality. He was admitted to the neuropsychiatric unit for definitive treatment of those issues. His medications were restarted versus continued and he showed clear improvement. He seems to be more committed to possible sober living treatment and was discharged to inpatient rehab after thomas for safety outside of the hospital. During the hospitalization, patient had routine laboratory studies which were within normal limits except for few outliers. Additionally there was a general medical evaluation which was also within normal limits and revealed no new acute processes. Discharge Summary: At the time of discharge, lethality was denied and psychosis was resolving. Mood and anxiety were well managed. Patient endorsed a plan to avoid all drugs of abuse and follow-up with the aftercare recommendations of the treatment team. Patient was evaluated and deemed to be absent credible lethality, and had achieved the maximum benefit from an inpatient hospitalization, so was discharged. Involuntary Hold Information 96 Hour Hold: 96 Hour Involuntary Admission: No Mental Status Exam MSE Comments: This is a slender white male in hospital scrubs with adequate grooming and eye contact. No abnormal movements. Cooperative with exam in no acute distress, but appearing little anxious about exactly how discharge will occur and making sure he has the stuff he will need since he will be gone for a while. Speech was normal rate and volume with limited prosody. Mood described as better, affect congruent but flat. Thought process organized. Thought content: Patient denied suicidal or homicidal ideation, there are no delusions reported or noted, he denied auditory or visual hallucinations. Attention and concentration were intact and memory was mostly reliable but none were formally tested. He is alert and oriented x3. Insight and judgment are fair and impulse control is limited, but improving. Discharge Data Vitals: Last Vital Signs Temp 97.9 F 01/02/21 21:20 Pulse 69 01/02/21 21:20 Resp 18 01/02/21 21:20 BP 110/49 01/02/21 21:20 Pulse Ox 96 01/02/21 21:20 Discharge Plan Discharge Patient Disposition: Xfer Other Condition: Stable Prescriptions: Continued pantoprazole 40 mg tablet,delayed release (DR/EC) 40 mg PO DAILY 30 Days Qty: 30 RF: 1 olanzapine 5 mg Tablet 5 mg PO 0900,2100 30 Days Qty: 60 RF: 1 Discharge Orders: Discharge Order (Routine); Ordered 01/03/21 Ordered By: Raul Mendoza Referrals: Amina Moore PMHNP [Staff Physician] - 01/01/21 1:30 pm (Apt with Amina. ) Carrol Kelsey DO [Physician] - 01/10/21 10:30 am (New Patient appointment with Dr. Kelsey. ) Discharge Diet: Regular Discharge Activity: Resume usual activity Patient Instructions: Generalized Anxiety Disorder (DC), Cannabis Abuse (DC), Opioid Safety Discharge Attestations NPU Time Spent in Discharge Care*: less than 30 min Specific Discharge Activities: Specific discharge activities: educating patient, discussing with rehabilitation caseworker/social workers/dc planners, docum enting/other paperwork and evaluating patient/reviewing data Status at Discharge: Cognitive status at discharge: cognitively intact , Behavioral status at discharge: cooperative , Coding Level of Care Code Acute [facility] [place] note Diagnoses Schizophrenia F20.89 Schizophrenia type: other Methamphetamine dependence F15.20
[2021-01-03 06:00] VITALS: BP 122/56; PULSE 59; RESP 15; TEMP 36.6; O2SAT 96
[2021-01-03] MEDS: OLANZapine 5 mg TABLET PO (08:08)
[2021-01-03] MEDS: nicotine 2 mg Gum BUCCAL ×2 (08:08→10:24)
[2021-01-03 08:29] VITALS: BP 122/56; PULSE 59; RESP 15; TEMP 36.6; O2SAT 96
== END 2021-01-03 11:56 | disposition other institution (70) | DRG 885 ==
LOC: ER 11:58 → NP 12:06
PROVIDERS: Nurse Practitioner Family; Admitting Provider Psychiatry & Neurology Psychiatry; Emergency Provider Family Medicine; Visit Provider Psychiatry & Neurology Psychiatry
DX: F20.89 Other schizophrenia (principal); F15.229 Other stimulant dependence with intoxication, unspecified; Z91.14 Patient's other noncompliance with medication regimen; K13.0 Diseases of lips; F17.210 Nicotine dependence, cigarettes, uncomplicated
CPT/HCPCS: 36415; 80053; 80306; 80307; 81001; 85025; 99285

== ENCOUNTER 2021-02-27 15:40 | Inpatient (IN) | payer MEDICARE, MEDICAID, SELFPAY ==
[2021-02-27 15:44] VITALS: BP 149/81; PULSE 106; RESP 16; TEMP 36.9; O2SAT 94; BMI 19.3
--- NOTE | 2021-02-27 15:51 | ED_ITS ---
HPI - Psych General: Chief Complaint: Psychiatric Symptoms Stated Complaint: MHE Time Seen by Provider: 02/27/21 15:47 History of Present Illness: HPI Narrative: 25 yo male brought in by [facility] department. Patient states he has not taken his Zyprexa for some time now. May try to get him quantify that he says he cannot really tell me the nurses noted within a few days. He denies any illegal substances. He states he is having auditory hallucinations denies any suicidal homicidal ideation he has been admitted to psychiatry before. MD complaint: other (acutely psychotic) Onset (ago): day(s) Duration: constant History of same: Yes Relieving factors: medication Exacerbating factors: none Context: not taking psychiatric medications Associated psychiatric symptoms: auditory hallucinations Associated symptoms: Reports auditory hallucinations; Deny visual hallucinations, delusions, depression, homicidal ideation, suicidal ideation or racing thoughts Treatments prior to arrival: none Review of Systems Const: Denies: fever(s), chills, body aches, change in appetite, fatigue or malaise ENMT: Denies: throat pain, ear or mastoid pain, nasal discharge or nasal congestion Card: Denies: chest pain, edema, dyspnea on exertion or orthopnea Resp: Denies: dyspnea, productive cough or non-productive cough GI: Denies: abdominal pain, nausea, vomiting, hematemesis, coffee ground emesis, diarrhea, constipation, bloating, hematochezia or melena : Denies: flank pain, dysuria, urinary frequency or urinary urgency Skin/Breast: Denies: rash or pruritus Psych: Reports: auditory hallucinations; Denies: depression, visual hallucinations, suicidal ideation or homicidal ideation [facility] ED PFSH: Medical History On high dose antipsychotic drug therapy Other schizophrenia 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, unspecified Other stimulant dependence, uncomplicated Social History Smoking and tobacco status: current every day smoker cigarettes Packs smoked per day: 1 Smoking risk assessment/counseling performed?: Yes Tobacco counseling given: counseling >3 minutes Alcohol intake: former Physical Exam Const: COMMON NORMALS: no acute distress GENERAL APPEARANCE: cooperative and comfortable ORIENTATION/CONSCIOUSNESS: Yes awake HENMT: COMMON NORMALS: atraumatic HEAD & SCALP: atraumatic Neck/C-Spine: COMMON NORMALS: no JVD Resp: COMMON NORMALS: normal respiratory effort, No retractions, No use of accessory muscles and clear to auscultation bilaterally AUSCULTATION: clear to auscultation bilaterally Cardio: COMMON NORMALS: no JVD, regular rate, regular rhythm and No murmurs present (Cardio) RATE: regular rate RHYTHM: regular rhythm GI: COMMON NORMALS: Soft to palpation and No hepatosplenomegaly present AUSCULTATION: Yes normoactive bowel sounds PALPATION: Yes Soft to palpation, No Tenderness to palpation present (GI), No Guarding due to palpation present (GI) and Yes No hepatosplenomegaly present Extremity: COMMON NORMALS: normal to inspection, capillary refill normal, no clubbing, cyanosis or edema, no calf tenderness and no pedal edema Psych: THOUGHT CONTENT: No delusions Skin: COMMON NORMALS: no rashes or lesions noted GENERAL SKIN EXAM: no rashes or lesions noted Course Vital Signs: Vital signs: Vital Signs Temperature 96.7 F L 02/27/21 21:00 Pulse Rate 118 H 02/27/21 21:00 Respiratory Rate 18 02/28/21 06:00 Blood Pressure 137/62 02/27/21 18:19 Pulse Oximetry 94 02/27/21 21:00 MDM - Psych MDM Narrative: Medical decision making narrative: Discussed with Dr. Mendoza patient will be admitted for acute psychosis orders written Lab Data: Labs: Lab Results 02/27/21 02/27/21 02/27/21 Range/Units 16:03 16:03 16:10 WBC 15.9 H (4.0-10.0) 10^3/ uL RBC 4.97 (4.1-5.3) 10^6/u L Hgb 15.9 (11.7-16.6) g/dL Hct 44.2 (42.0-52.0) % MCV 88.9 (80-94) fL MCH 32.0 (28.0-34.0) pg MCHC 36.0 (30.0-36.0) g/dL RDW 11.8 L (12.1-15.1) % Plt Count 202 (130-400) 10^3/c mm MPV 11.3 H (7.4-10.4) fL Neut % (Auto) 72.4 % Lymph % (Auto) 17.0 % Tucker % (Auto) 9.7 % Eos % (Auto) 0.1 % Baso % (Auto) 0.6 % Neut # (Auto) 11.49 H (1.8-7.7) 10^3/u L Lymph # (Auto) 2.7 (0.8-4.8) 10^3/u L Tucker # (Auto) 1.5 H (0.2-0.9) 10^3/u L Eos # (Auto) 0.0 (0.0-0.8) 10^3/u L Baso # (Auto) 0.1 (0.0-0.1) 10^3/u L Nucleated RBC % (a uto) 0 % Nucleated RBCs # 0.0 /100WBC Sodium 143 (136-145) mmol/L Potassium 3.7 (3.5-5.1) mmol/L Chloride 105 (98-107) mmol/L Carbon Dioxide 23 (22-29) mmol/L Anion Gap 18.7 (5-19) BUN 14 (6-20) mg/dL Creatinine 0.9 (0.7-1.2) mg/dL GFR Calculation 103.7 (90-130) mL/min Glucose 83 (65-115) mg/dL Calculated Osmolal ity 296 H (285-295) mOsm/k g Calcium 9.4 (8.5-10.5) mg/dL Total Bilirubin 1.3 H (0.15-1.2) mg/dL AST 25 (0-40) U/L ALT 11 (0-41) U/L Alkaline Phosphata se 76 (40-130) IU/L Total Protein 7.3 (6.6-8.7) g/dL Albumin 5.0 (3.5-5.2) g/dL Globulin 2.3 (1.3-4.6) g/dL Urine Color Cheryl (Yellow) Urine Appearance Clear (CLEAR) Urine pH 5 (5-7) Ur Specific Gravit y 1.030 (1.005-1.030) Urine Protein 1+ H (Negative) Urine Glucose (UA) Norm (Normal) Urine Ketones 1+ H (Negative) Urine Blood Neg (Negative) Urine Nitrate Negative (Negative) Urine Bilirubin 1+ H (Negative) Urine Urobilinogen 4 H (Negative) mg/dL Ur Leukocyte Andree ase Negative (Negative) Urine RBC None (0-2) /hpf Urine WBC None (0-5) /hpf Ur Squamous Epith Cells None (0-5) /hpf Amorphous Sediment Not Reportable Urine Bacteria None (NONE) /hpf Salicylates < 0.3 L (3-10) mg/dL Urine Opiates Scre en (Negative) ng/mL Acetaminophen < 5.0 L (10-30) ug/mL Ur Barbiturates Sc reen (Negative) ng/mL Ur Phencyclidine S crn (Negative) ng/mL Ur Amphetamines Sc reen (Negative) ng/mL U Benzodiazepines Scrn (Negative) ng/mL Urine Cocaine Scre en (Negative) ng/mL U Marijuana (THC) Screen (Negative) ng/mL 02/27/21 Range/Units 16:10 WBC (4.0-10.0) 10^3/ uL RBC (4.1-5.3) 10^6/u L Hgb (11.7-16.6) g/dL Hct (42.0-52.0) % MCV (80-94) fL MCH (28.0-34.0) pg MCHC (30.0-36.0) g/dL RDW (12.1-15.1) % Plt Count (130-400) 10^3/c mm MPV (7.4-10.4) fL Neut % (Auto) % Lymph % (Auto) % Tucker % (Auto) % Eos % (Auto) % Baso % (Auto) % Neut # (Auto) (1.8-7.7) 10^3/u L Lymph # (Auto) (0.8-4.8) 10^3/u L Tucker # (Auto) (0.2-0.9) 10^3/u L Eos # (Auto) (0.0-0.8) 10^3/u L Baso # (Auto) (0.0-0.1) 10^3/u L Nucleated RBC % (a uto) % Nucleated RBCs # /100WBC Sodium (136-145) mmol/L Potassium (3.5-5.1) mmol/L Chloride (98-107) mmol/L Carbon Dioxide (22-29) mmol/L Anion Gap (5-19) BUN (6-20) mg/dL Creatinine (0.7-1.2) mg/dL GFR Calculation (90-130) mL/min Glucose (65-115) mg/dL Calculated Osmolal ity (285-295) mOsm/k g Calcium (8.5-10.5) mg/dL Total Bilirubin (0.15-1.2) mg/dL AST (0-40) U/L ALT (0-41) U/L Alkaline Phosphata se (40-130) IU/L Total Protein (6.6-8.7) g/dL Albumin (3.5-5.2) g/dL Globulin (1.3-4.6) g/dL Urine Color (Yellow) Urine Appearance (CLEAR) Urine pH (5-7) Ur Specific Gravit y (1.005-1.030) Urine Protein (Negative) Urine Glucose (UA) (Normal) Urine Ketones (Negative) Urine Blood (Negative) Urine Nitrate (Negative) Urine Bilirubin (Negative) Urine Urobilinogen (Negative) mg/dL Ur Leukocyte Andree ase (Negative) Urine RBC (0-2) /hpf Urine WBC (0-5) /hpf Ur Squamous Epith Cells (0-5) /hpf Amorphous Sediment Urine Bacteria (NONE) /hpf Salicylates (3-10) mg/dL Urine Opiates Scre en Negative (Negative) ng/mL Acetaminophen (10-30) ug/mL Ur Barbiturates Sc reen Negative (Negative) ng/mL Ur Phencyclidine S crn Negative (Negative) ng/mL Ur Amphetamines Sc reen Positive H (Negative) ng/mL U Benzodiazepines Scrn Negative (Negative) ng/mL Urine Cocaine Scre en Negative (Negative) ng/mL U Marijuana (THC) Screen Negative (Negative) ng/mL Discharge Plan Discharge Admit Provider: Raul Mendoza Clinical Impression: Schizophrenia, Acute psychosis, Methamphetamine dependence Condition: Stable Coding Level of Care Code 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
[2021-02-27 16:21] LABS: Basophils # 0.1 10^3/uL (0.0-0.1); Basophils % 0.6 %; Eosinophils % 0.1 %; Hematocrit 44.2 % (42.0-52.0); Hemoglobin 15.9 g/dL (11.7-16.6); Lymphocytes # 2.7 10^3/uL (0.8-4.8); Mean Corpuscular Volume 88.9 fL (80-94); Mean Platelet Volume 11.3 fL (7.4-10.4); Monocytes # 1.5 10^3/uL (0.2-0.9); Monocytes % 9.7 %; Neutrophils # 11.49 10^3/uL (1.8-7.7); Neutrophils % 72.4 %; Nucleated Red Blood Cells % 0 %; Platelet Count 202 10^3/cmm (130-400); Red Blood Count 4.97 10^6/uL (4.1-5.3); Red Cell Distribution Width 11.8 % (12.1-15.1); White Blood Count 15.9 10^3/uL (4.0-10.0)
[2021-02-27 16:35] LABS: Urine Appearance Clear (CLEAR); Urine Color Amber (Yellow)
[2021-02-27 16:36] LABS: Add Urine Culture? No; Add Urine Microscopic? YES; Bilirubin Urine 1+ (Negative); Blood Urine Neg (Negative); Glucose Urine UA Norm (Normal); Ketones Urine 1+ (Negative); Leukocyte Esterase Urine Negative (Negative); Nitrate Urine Negative (Negative); Protein Urine 1+ (Negative); Urobilinogen Urine 4 mg/dL (Negative); pH Urine 5 (5-7)
[2021-02-27 16:52] LABS: Alanine Aminotransferase 11 U/L (0-41); Alkaline Phosphatase 76 IU/L (40-130); Anion Gap 18.7 (5-19); Aspartate Amino Transferase 25 U/L (0-40); Blood Urea Nitrogen 14 mg/dL (6-20); Calcium 9.4 mg/dL (8.5-10.5); Carbon Dioxide 23 mmol/L (22-29); Chloride 105 mmol/L (98-107); Globulin 2.3 g/dL (1.3-4.6); Glomerular Filtration Rate 103.7 mL/min (90-130); Glucose 83 mg/dL (65-115); Osmolality Calculated 296 mOsm/kg (285-295); Potassium 3.7 mmol/L (3.5-5.1); Sodium 143 mmol/L (136-145); Total Bilirubin 1.3 mg/dL (0.15-1.2); Total Protein 7.3 g/dL (6.6-8.7)
[2021-02-27 16:54] LABS: Acetaminophen < 5.0 ug/mL (10-30); Salicylate < 0.3 mg/dL (3-10)
[2021-02-27 17:49] VITALS: BMI 19.3
--- NOTE | 2021-02-27 18:07 | PC.NURSE ---
Patient is a 25 year old male, that presents to the NPU unit after being seen in the emergency department. Patient was brought in by local police officers as he was seen outside and was brought in for evaluation. Patient arrived to the unit via w/c and two staff members. During admission and questioning patient has severe involuntary movements of his upper extremities along with involuntary movements with face/ neck. Patient answers all questions appropriately however takes a few minutes to answer questions. Patient denies any SI/HI thoughts but states that he has auditory hallucinations that he describes as a chattering noise. Patient denies the voices telling him to do anything but say that they are there. Denies current illicit drug use but states I smoke 1 ppd .
[2021-02-27 18:08] LABS: Amphetamines Screen Urine Positive (Negative); Cocaine Screen Urine Negative (Negative); PCP Screen Urine Negative (Negative); THC Screen Urine Negative (Negative)
[2021-02-27 18:09] LABS: Barbiturates Screen Urine Negative (Negative); Benzodiazepines Screen Urine Negative (Negative); Opiate Screen Urine Negative (Negative)
[2021-02-27 18:19] VITALS: BP 137/62; PULSE 71; RESP 18; O2SAT 92
[2021-02-27 18:33] VITALS: TEMP 36.8
--- NOTE | 2021-02-27 20:00 | PC.NURSE ---
bEHAVIOR, PT WAS NOT ABLE TO CONTROL HAND, NECK, ARM, LEG MOVEMENTS. pT SPEECH IS UNCLEAR, COMING DOWN OFF METH, PRESSURED SPEECH, RAMBLING, AND WANDERING IN HALLS. MED NURSE NOTIFIED
[2021-02-27 21:00] VITALS: PULSE 118; RESP 16; TEMP 35.9; O2SAT 94
[2021-02-27] MEDS: OLANZapine 5 mg ODT PO (21:55)
[2021-02-27] MEDS: hyDROXYzine 25 mg Capsule 50 MG PO (21:55)
[2021-02-27] MEDS: trazodone 50 mg Tablet PO (21:56)
--- NOTE | 2021-02-27 22:18 | PC.NURSE ---
The patient is writhing and unable to calm himself. He was given Vistaril 50 mg po, Trazodone 50 mg p0, Zyprexa 5 mg po at 2155. The patient was agreeable to taking the medications.
--- NOTE | 2021-02-27 23:31 | PC.NURSE ---
In bed, quiet, appears sleeping.
[2021-02-28 06:00] VITALS: RESP 18
--- NOTE | 2021-02-28 12:54 | PM.NHP ---
Providers/Chief Complaint Admitting Physician: Raul Mendoza MD Chief Complaint: MHE HPI NPU History of Present Illness Landry Coates is a 25 year old male who presented to the emergency department with the following report: Chief Complaint: Psychiatric Symptoms Stated Complaint: MHE Time Seen by Provider: 02/27/21 15:47 History of Present Illness: HPI Narrative: 25 yo male brought in by HCS department. Patient states he has not taken his Zyprexa for some time now. May try to get him quantify that he says he cannot really tell me the nurses noted within a few days. He denies any illegal substances. He states he is having auditory hallucinations denies any suicidal homicidal ideation he has been admitted to psychiatry before. complaint: other (acutely psychotic) Onset (ago): day(s) Duration: constant History of same: Yes Relieving factors: medication Exacerbating factors: none Context: not taking psychiatric medications Associated psychiatric symptoms: auditory hallucinations Associated symptoms: Reports auditory hallucinations; Deny visual hallucinations, delusions, depression, homicidal ideation, suicidal ideation or racing thoughts Treatments prior to arrival: none. He was admitted to the neuropsychiatric unit for definitive treatment of those issues. Landry presents today reporting that he relapsed but in general being completely thought disordered and unable to truly communicate anything about the situation. We were able to discuss that he had relapsed and we did discuss the fact that his mom was not willing to accept him back home and said that he had to go to some type treatment. We discussed the fact that [facility] in [place] and he agreed this would be a good plan. Otherwise he was unable to articulate due to his thought disorder but was able to express when he understood what was being said. An excerpt of his last note with this publications writer is included below for context. This represents the third hospitalization since he was seen by this publications writer in November. Per his 11/14/2020 [facility] inpatient psychiatric eval: History of Present Illness Landry Coates is a 25 year old male who presented to the emergency department with the following report: Chief Complaint: Psychiatric Symptoms Stated Complaint: 96 HR HOLD Time Seen by Provider: 11/13/20 17:04 Source: patient and police Mode of arrival: other (PD) Limitations: no limitations History of Present Illness: HPI Narrative: 25-year-old male patient presents to the emergency department today in custody of [facility] department under 96-hour hold. 96-hour hold was instated today, November 13, 2020. He has history of paranoid schizophrenic and PTSD with current history of methamphetamine use per mother. He was punching himself in the face and chewing the inside of his mouth to the point where 1 side was severely swollen. He was also hearing voices per statement on affidavit; patient reports hearing voices, states they are mumbling. Denies suicidal/homicidal thoughts, ideations plans upon exam. He denies illicit substance abuse. Affidavit by Geraldo Jennings stated Mr. Garcia stopped prescribed medication and starting the methamphetamine again. Family reports they are afraid of him. Afraid he is going to hurt them. They are afraid he is going to harm himself. They report he has been talking to himself There is also an additional affidavits from family members, sister eligio with similar concerns. When asked concerning swelling of the face, he denies what occurred or what caused the suspected infection to the right upper lip. Associated symptoms: Reports auditory hallucinations; Deny depression. He was admitted to the neuropsychiatric unit for definitive treatment of those issues. He presents today reporting that he does not know why he stopped taking the medication. He reports that when he takes it that it is effective but he stopped taking it sometime ago. We discussed the risk benefits and alternatives of possibly considering a long-acting injectable given his nonadherence and he was insistent on resuming the Zyprexa because he reports it is very effective if he takes it. And he understood and agreed to proceed as is documented in his note. He denies any major issues with addiction at this time. He has an abscess on his right upper lip that is causing swelling up towards his right eye stretching to the right of his nose. He was very annoyed by it and is desiring he wanted to go away. He was fairly resistant to the interview but we were able to review information from his last hospitalization and he endorsed that there have been no substantive changes since then. An excerpt is included below. Per his 12/13/2019 [facility] [place]: History of Present Illness Landry Coates is a 24 year old male The patient presents today reporting that he has a long history of psychosis as well as addiction, which is currently active. He presented to the emergency room endorsing that he had been off of his medication, and he has been struggling with his addiction. He was open to the idea of exploring a long acting injectable, with hopes that he could not worry about daily dosing, which might improve his adherence as well as his disease progression. We discussed the risks, benefits, and alternatives of resuming Invega, which he had successfully taken in the past, and he understood and agreed to proceed as is documented in this note. We reviewed his most recent evaluation which was in December of 2018, and he endorsed that the psycho-social information was valid. He is a limited historian, at this time. Per last [facility] [place] summary: Discharge Summary Date of Admission: Dec 26, 2018 at 14:25 Discharge Date: Jan 09, 2019 Attending Physician: Gladis De La Fuente M.D.; Sanjay Acevedo MD Consulting Physician(s): Discharge Diagnosis: (1) Schizophrenia, paranoid type Status: Chronic (2) Methamphetamine abuse Status: Chronic (3) Noncompliance Status: Chronic Brief History: HPI: Landry Coates is a 23-year-old male who presents for his 13th admission to a psychiatric unit. [facility] in the past 24 months. I do not have access to the emergency room notes. However the according to records, the patient arrived with the police after being picked up for some sort of aggressive behavior. The patient himself denies that there was any problem. He denies that he has a psychiatric problem. He denies that he has used any type of methamphetamine or other substances. He claims that he does not know Emma Sevilla. He admits that Inge Jennings is his mother but claims that the things that she said in her affidavit are untrue. The patient is basically not communicating other than to say that he does not feel he has a problem does not feel he needs to be here. He says I want off of my medication. When asked about that medication he said he didn't know the name said that started with H. He was started on Haldol during his last admission 3 weeks ago. I began asking him questions such as hasn't helped you and were there any side effects . He reported that he never even open the bottle so he has not been taking his medication anyway. Patient then became noncommunicative and would not answer questions. Close to discharge her affidavits by Ms. Jennings and Ms. Sevilla. His mother reports that she feels he is going to kill himself or herself and her . He is not taking medications. He has been neglectful of hygiene she describes him as hypervigilant she states that they have to sleep in her bathroom door locked at night. Ms. Sevilla states that his [employer] has changed since his last admission. He is not taking his medications. I don't feel safe in my home, ever, I fear that he is going to harm me or my father and even stepmother if she has to get in his way. She describes him as dangerous, aggressive, and that I'm scared to even have to step back into the home with him there. Patient has a well-documented history of schizophrenia and drug abuse. He was hospitalized in January 2017 for 21 days, February 2017 for 5 days, June 2017 for 4 days, June 2017 3 days, July 2017 for 4 days, August 2017 for 6 days, September 2017 for 2 days, December 2017 for 6 days, December 2017 for 2 days, February 2018 for 5 days. Then today he was free of admissions for the next 8 months before being rehospitalized early last month for 3 days and at the end of last month for 3 days. He was admitted on 12/07/2018 and given the diagnoses: (1) Schizophrenia, paranoid type Status: Chronic (2) Methamphetamine abuse Status: Chronic (3) Anxiety Status: Chronic (4) Nicotine dependence, cigarettes, uncomplicated Status: Chronic (5) Noncompliance Status: Chronic He was discharged on oral Haldol. Social history: Patient is not interacting verbally providing any information. He appears to live with his mother, stepfather, and stepsister. He is unemployed. Family psychiatric history: Unknown Past Medical History Past Medical History: Patient is not cooperative with exam. Emergency room records indicate a history of heavy tobacco use but no other medical problems. Data Labs reviewed by provider: Item Value Date Time Urine Opiates Screen NEGATIVE ng/mL 12/26/18 1335 Urine Barbiturates Screen NEGATIVE ng/mL 12/26/18 1335 Urine Phencyclidine Screen NEGATIVE ng/mL 12/26/18 1335 Urine Amphetamines Screen NEGATIVE ng/mL 12/26/18 1335 Urine Benzodiazepines Screen NEGATIVE ng/mL 12/26/18 1335 Urine Cocaine Screen NEGATIVE ng/mL 12/26/18 1335 Urine Marijuana (THC) Screen NEGATIVE ng/mL 12/26/18 1335 Result Diagram: 12/26/18 1311 12/26/18 1311 document embedded image Admission Assessment/Problem List Assessment/Problem List Other Assessment/Problem List: (1) Schizophrenia, paranoid type Status: Acute (2) Methamphetamine abuse Status: Chronic (5) Noncompliance Status: Acute Hospital Course: The patient was admitted to the hospital inpatient psychiatric unit. He was provided a safe, supportive environment and encouraged to participate in individual, group, recreational, and milieu psychotherapies. Staff worked with him on positive coping skills. Medications were reviewed and adjustments were made based on the patient's symptoms and response to treatment. Initially 96 hour hold was discontinued and 21 day hold filed/improved. Patient was started on Invega titrated to 9 mg daily for psychosis/mood stabilization which he tolerated without problems. Staff attempted to obtain collateral information and network with the patient's family regarding his overall status and discharge planning. No family member answered the phone during daily calls to network with them. Affidavits were reviewed which indicated that the patient had ongoing noncompliance with medications at home, chronic self-care deficits, intermittent anger/verbal aggression issues. Family had indicated that they were wanting placement for the patient but had never failed to file for guardianship as recommended by the treatment team during numerous prior psychiatric admissions. As such, the treatment team did agree to file in favor of guardianship with a state appointed guardian. As the patient was still his own guardian, refused placement with no payor source, and had returned to his baseline functioning, he was discharged home. Care management was consulted for medication assistance and discharge planning including recommendation for an outpatient case investigator. Disposition: discharge patient home with local mental [facility] follow-up for medication management/therapy/case management strongly recommended. Care management to assist with discharge planning. Condition at Discharge: Stable. At time of discharge, the patient was ambulating and taking oral medications without difficulty. He was tolerating all medications without side effects or adverse reactions. He reported improvement in symptoms and resolution of mood lability, self-care failure, and auditory hallucinations. New Medications: Paliperidone Tab (Invega Tab) 9 Mg Tab.osm.24 9 MG PO DAILY, #14 TAB 2 Refills Discontinued Medications: Haloperidol Tab (Haldol Tab) 5 Mg Tablet 5 MG PO DAILY PRN for agitation/psychosis, #14 TAB 2 Refills Hydroxyzine Pamoate Cap (Vistaril Cap) 25 Mg Capsule 25 MG PO QID PRN for FOR ANXIETY, CAP Meds NPU Home Medications Medication Instructions Recorded Confirmed Last Taken Type olanzapine 5 mg PO 0900,2100 30 Days #60 tab 01/02/21 02/27/21 Unknown Rx pantoprazole 40 mg PO DAILY 30 Days #30 tab 01/02/21 02/27/21 Unknown Rx Allergies Allergy/AdvReac Type Severity Reaction Status Date / Time No Known Allergies Allergy Verified 02/27/21 15:51 PFSH NPU PFSH: Medical History On high dose antipsychotic drug therapy Other schizophrenia 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 No abnormal movements except for mild psychomotor agitation. Cooperative with exam in no acute distress. Speech was increased rate normal volume. Mood described as okay, affect odd. Thought process disorganized. Thought content: Patient denied suicidal or homicidal ideation, there were no delusions reported but paranoia noted, he denied auditory visual hallucinations. Attention and concentration appeared impaired and memory was impaired but none were formally tested. Alert and oriented x3. Insight and judgment are impaired, impulse control is impaired. Vitals/I&O/Wt Last Vital Signs Temp 98.6 F 02/28/21 06:00 Pulse 63 02/28/21 06:00 Resp 18 02/28/21 06:00 BP 97/66 02/28/21 06:00 Pulse Ox 97 02/28/21 06:00 Weight last 48 hrs Weight 63.049 kg Weight 63.049 kg Data NPU : 02/27/21 16:03 02/27/21 16:03 A&P Assessment and plan (1) Acute psychosis: Status: Acute (2) Schizophrenia: Status: Acute (3) Methamphetamine dependence: Status: Acute Additional A&P Information This is a 25-year-old white male with schizophrenia and methamphetamine use who presents floridly psychotic and disorganized likely secondary to methamphetamine use who presents reporting that he is willing to go back to a controlled inpatient environment. 1. Continue current medication. 2. Continue every 15 minute checks for safety. 3. Encourage individual, group and milieu therapies. 4. Encourage sober living treatment after discharge at the highest level of care to which he is willing to commit. Involuntary Hold Information 96 Hour Hold: 96 Hour Involuntary Admission: No Attestations NPU Medical Necessity Statement*: Inpatient hospitalization is medically necessary and the clinically appropriate intervention at this time. We will monitor medications and make changes as indicated. Patient will be in the hospital for over two midnights. Likely length of stay 3 to 5 days. Coding Level of Care Code Acute Dump Attendant for Froy Lozano Diagnoses Acute psychosis F23 Schizophrenia F20.9 Methamphetamine dependence F15.20
[2021-02-28 14:00] VITALS: BP 97/66; PULSE 63; RESP 18; TEMP 37; O2SAT 97
--- NOTE | 2021-02-28 20:08 | PC.RESP ---
Smoking Cessation information sent to patient.
[2021-02-28 20:15] VITALS: RESP 15
[2021-03-01 06:00] VITALS: BP 99/63; PULSE 66; RESP 16; TEMP 36.8; O2SAT 96
--- NOTE | 2021-03-01 13:55 | P.PN_ITS ---
Subjective NPU Subjective: Interval history: And who presents today continuing to be quite disorganized with significant paraphasias not being able to specifically use the word that he wants but being able to get some indication of what he is trying to get at but certainly not in a place where he can likely make informed consent. Fortunately today his indication of going to [facility] [place] has changed and somehow he is indicating a plan to go to his mother's house which she is saying that is not going to happen. He is unable to receive that information with any effectiveness. Mental Status Exam MSE Comments: This is an underweight white male with hospital scrubs on with limited grooming and eye contact. No abnormal movements except for mild psychomotor agitation. Cooperative with exam in no acute distress. Speech was increased rate normal volume. Mood described as okay, affect odd. Thought process disorganized. Thought content: Patient denied suicidal or homicidal ideation, there were no delusions reported but paranoia noted, he denied auditory visual hallucinations. Attention and concentration appeared impaired and memory was impaired but none were formally tested. Alert and oriented x3. Insight and judgment are impaired, impulse control is impaired. Vitals/I&O/Wt Last Vital Signs Temp 98.2 F 03/01/21 06:00 Pulse 66 03/01/21 06:00 Resp 16 03/01/21 06:00 BP 99/63 03/01/21 06:00 Pulse Ox 96 03/01/21 06:00 Weight last 48 hrs Weight 63.049 kg Data NPU : 02/27/21 16:03 02/27/21 16:03 A&P Additional A&P Information (1) Acute psychosis: (2) Schizophrenia: (3) Methamphetamine dependence: Additional A&P Information This is a 25-year-old white male with schizophrenia and methamphetamine use who presents floridly psychotic and disorganized likely secondary to methamphetamine use who presents reporting that he is willing to go back to a controlled inpatient environment. 1. Continue current medication. 2. Continue every 15 minute checks for safety. 3. Encourage individual, group and milieu therapies. 4. Encourage sober living treatment after discharge at the highest level of care to which he is willing to commit. Involuntary Hold Information 96 Hour Hold: 96 Hour Involuntary Admission: No Attestations NPU Medical Necessity Statement*: Inpatient hospitalization is medically necessary and the clinically appropriate intervention at this time. We will monitor medications and make changes as indicated. Likely length of stay 3 to 5 days. Coding Level of Care Code Acute Mid Level Clinician for Froy Lozano
[2021-03-01 14:00] VITALS: BP 99/63; PULSE 66; RESP 16; TEMP 36.8; O2SAT 96
[2021-03-01 14:58] VITALS: BP 90/49; PULSE 63; RESP 16; TEMP 37; O2SAT 96
[2021-03-01 22:00] VITALS: BP 94/50; PULSE 61; RESP 17; TEMP 36.9; O2SAT 98
[2021-03-02 06:00] VITALS: BP 100/58; PULSE 56; RESP 16; TEMP 36.6; O2SAT 98
[2021-03-02 13:53] VITALS: BP 103/60; PULSE 59; RESP 15; TEMP 36.8; O2SAT 96
--- NOTE | 2021-03-02 16:47 | P.PN_ITS ---
Subjective NPU Subjective: Interval history: Landry presents today continuing to be quite disorganized and getting flustered because he is now trying to communicate that he is going through his mom's place ultimately which is not something she is open to, he is continuing to refuse going back to inpatient rehab but clearly not functionally capable of doing even that right now. He is still unable to communicate using the words that he desires. So disorganized that he is stuck in these paraphasias and suggestions in the general vicinity of his thought but not with any clarity. Mental Status Exam MSE Comments: This is an underweight white male with hospital scrubs on with limited grooming and eye contact. No abnormal movements except for mild psychomotor agitation. Cooperative with exam in no acute distress. Speech was increased rate normal volume. Mood described as fine, affect odd and irritable. Thought process very disorganized. Thought content: Patient denied suicidal or homicidal ideation, there were no delusions reported but paranoia noted, he denied auditory or visual hallucinations. Attention and concentration appeared impaired and memory was impaired but none were formally tested. He was alert and oriented x3. Insight and judgment are impaired, impulse control is im paired. Vitals/I&O/Wt Last Vital Signs Temp 98.3 F 03/02/21 13:53 Pulse 59 L 03/02/21 13:53 Resp 15 03/02/21 13:53 BP 103/60 03/02/21 13:53 Pulse Ox 96 03/02/21 13:53 Weight last 48 hrs Weight 63.049 kg Data NPU : 02/27/21 16:03 02/27/21 16:03 A&P Additional A&P Information (1) Acute psychosis: (2) Schizophrenia: (3) Methamphetamine dependence: Additional A&P Information This is a 25-year-old white male with schizophrenia and methamphetamine use who presents floridly psychotic and disorganized likely secondary to methamphetamine use who presents reporting that he is willing to go back to a controlled inpatient environment. 1. Continue current medication. 2. Continue every 15 minute checks for safety. 3. Encourage individual, group and milieu therapies. 4. Encourage sober living treatment after discharge at the highest level of care to which he is willing to commit. 5. He is currently quite disorganized and would not be able to participate in rehab at this very moment but also overall is functionally quite impaired. Involuntary Hold Information 96 Hour Hold: 96 Hour Involuntary Admission: No Attestations NPU Medical Necessity Statement*: Inpatient hospitalization is medically necessary and the clinically appropriate intervention at this time. We will monitor medications and make changes as indicated. Likely length of stay 3 to 5 days. Coding Level of Care Code Acute Nursing Clinical Director for Froy Lozano
[2021-03-02 20:55] VITALS: BP 108/69; PULSE 80; RESP 20; TEMP 36.9; O2SAT 98
[2021-03-03 06:00] VITALS: BP 98/56; PULSE 55; RESP 17; TEMP 36.9; O2SAT 97
[2021-03-03 14:00] VITALS: BP 107/62; PULSE 57; RESP 16; TEMP 37.1; O2SAT 95
--- NOTE | 2021-03-03 15:23 | PM.NPN ---
Subjective NPU Subjective: Interval history: Landry presented today very flustered as he was attempting to make an argument for discharge but barely able to say were discharged. We discussed great concern regarding safety if he were to discharge in a disorganized state even though his presentation is reflective of an expressive aphasia. But also has essence of a paraphasia as he is now only dropping words and having truncated sentences he is at best approximating the concept that he is trying to express. He continues to be unwilling to explore his need for continued addiction treatment and has not contacted his mother but continues to endorse his plan is to somehow live on the street somewhere and contact his mother from there. Mental Status Exam MSE Comments: This is an underweight white male with hospital scrubs on with limited grooming and eye contact. No abnormal movements except for mild psychomotor agitation. Cooperative with exam in no acute distress. Speech was increased rate normal volume. Mood described as fine, affect odd and irritable. Thought process very disorganized. Thought content: Patient denied suicidal or homicidal ideation, there were no delusions reported but paranoia noted, he denied auditory or visual hallucinations. Attention and concentration appeared impaired and memory was impaired but none were formally tested. He was alert and oriented x3. Insight and judgment are impaired, impulse control is impaired. Vitals/I&O/Wt Last Vital Signs Temp 98.8 F 03/03/21 14:00 Pulse 57 L 03/03/21 14:00 Resp 16 03/03/21 14:00 BP 107/62 03/03/21 14:00 Pulse Ox 95 03/03/21 14:00 Data NPU : 02/27/21 16:03 02/27/21 16:03 A&P Additional A&P Information (1) Acute psychosis: (2) Schizophrenia: (3) Methamphetamine dependence: Additional A&P Information This is a 25-year-old white male with schizophrenia and methamphetamine use who presents floridly psychotic and disorganized likely secondary to methamphetamine use who presents reporting that he is willing to go back to a controlled inpatient environment. 1. Continue current medication. We will once again attempt to try to convince him to restart medication. 2. Continue every 15 minute checks for safety. 3. Encourage individual, group and milieu therapies. 4. Encourage sober living treatment after discharge at the highest level of care to which he is willing to commit. 5. He is currently quite disorganized and would not be able to participate in rehab at this very moment but also overall is functionally quite impaired. Involuntary Hold Information 96 Hour Hold: 96 Hour Involuntary Admission: No Attestations NPU Medical Necessity Statement*: Inpatient hospitalization is medically necessary and the clinically appropriate intervention at this time. We will monitor medications and make changes as indicated. Likely length of stay 3 to 5 days. Coding Level of Care Code Acute Clinical Psychiatrist for Froy Lozano
[2021-03-03 20:30] VITALS: BP 108/70; PULSE 56; RESP 22; TEMP 36.8; O2SAT 100
[2021-03-03 21:13] VITALS: BP 108/70; PULSE 56; RESP 22; TEMP 36.8; O2SAT 100
[2021-03-04 05:56] VITALS: BP 109/61; PULSE 52; RESP 16; TEMP 36.9; O2SAT 97
[2021-03-04 14:00] VITALS: BP 108/64; PULSE 51; RESP 17; TEMP 37.2; O2SAT 97
--- NOTE | 2021-03-04 16:01 | P.PN_ITS ---
Subjective NPU Subjective: Interval history: Landry presents today continuing to show slow improvement in his expressive aphasia. He was able to do some goal oriented behavior and work with social work team asked about possible discharge as we did have for him once he does have greater clarity of thought. He continues to be resistant to going to a rehab but is frankly not functionally capable of doing one at this very moment. He is currently well enough to start thinking about active behaviors to get his goals accomplished but he continues to be unable to express words in a way that are easy to follow what his intentions are. Mental Status Exam MSE Comments: This is an underweight white male with hospital scrubs on with limited grooming and eye contact. No abnormal movements except for mild psychomotor agitation. Cooperative with exam in no acute distress. Speech was increased rate normal volume. Mood described as OK, affect odd and irritable. Thought process disorganized. Thought content: Patient denied suicidal or homicidal ideation, there were no delusions reported but paranoia noted, he denied auditory or visual hallucinations. Attention and concentration appeared impaired and memory was impaired but none were formally tested. He was alert and oriented x3. Insight and judgment are impaired, impulse control is impaired. Vitals/I&O/Wt Last Vital Signs Temp 98.2 F 03/04/21 21:09 Pulse 90 03/04/21 21:09 Resp 20 H 03/04/21 21:09 BP 113/75 03/04/21 21:09 Pulse Ox 99 03/04/21 21:09 Data NPU : 02/27/21 16:03 02/27/21 16:03 A&P Additional A&P Information (1) Acute psychosis: (2) Schizophrenia: (3) Methamphetamine dependence: Additional A&P Information This is a 25-year-old white male with schizophrenia and methamphetamine use who presents floridly psychotic and disorganized likely secondary to methamphetamine use who presents reporting that he is willing to go back to a controlled inpatient environment. 1. Continue current medication. We will once again attempt to try to convince him to restart medication. 2. Continue every 15 minute checks for safety. 3. Encourage individual, group and milieu therapies. 4. Encourage sober living treatment after discharge at the highest level of care to which he is willing to commit. 5. He is currently quite disorganized and would not be able to participate in rehab at this very moment but also overall is functionally quite impaired. Involuntary Hold Information 96 Hour Hold: 96 Hour Involuntary Admission: No Attestations NPU Medical Necessity Statement*: Inpatient hospitalization is medically necessary and the clinically appropriate intervention at this time. We will monitor medications and make changes as indicated. Likely length of stay 2-4 days. Coding Level of Care Code Acute School Cafeteria Cook Head for Froy Lozano
[2021-03-04 21:09] VITALS: BP 113/75; PULSE 90; RESP 20; TEMP 36.8; O2SAT 99
[2021-03-05 06:00] VITALS: BP 105/55; PULSE 53; RESP 18; TEMP 36.8; O2SAT 99
[2021-03-05 14:00] VITALS: BP 110/69; PULSE 58; RESP 20; TEMP 36.9; O2SAT 98
--- NOTE | 2021-03-05 18:59 | P.PN_ITS ---
Subjective NPU Subjective: Interval history: Landry continues to show slow but steady improvement in his thought disorder. Each day he continues to have a little more accuracy in his word finding but he still continues to be off the market most of the time. He continues to work on finding someone to support him discharging to them with limited success. Most people seem to say something optimistic and on phone but when speaking to us are honest about their limited ability to assist him given the significance of his addiction and current disability. Mental Status Exam MSE Comments: This is an underweight white male with hospital scrubs on with limited grooming and eye contact. No abnormal movements except for mild psychomotor agitation. Cooperative with exam in no acute distress. Speech was increased rate normal volume. Mood described as OK, affect odd but less irritable. Thought process disorganized. Thought content: Patient denied suicidal or homicidal ideation, there were no delusions reported but paranoia noted, he denied auditory or visual hallucinations. Attention and concentration appeared improving and memory was improving but none were formally tested. He was alert and oriented x3. Insight and judgment are impaired, impulse control is impaired. Vitals/I&O/Wt Last Vital Signs Temp 98.2 F 03/05/21 20:26 Pulse 53 L 03/05/21 20:26 Resp 21 H 03/05/21 20:26 BP 106/65 03/05/21 20:26 Pulse Ox 98 03/05/21 20:26 Data NPU : 02/27/21 16:03 02/27/21 16:03 A&P Additional A&P Information (1) Acute psychosis: (2) Schizophrenia: (3) Methamphetamine dependence: Additional A&P Information This is a 25-year-old white male with schizophrenia and methamphetamine use who presents floridly psychotic and disorganized likely secondary to methamphetamine use who presents reporting that he is willing to go back to a controlled inpatient environment. 1. Continue current medication. We will continue to recommend medication. 2. Continue every 15 minute checks for safety. 3. Encourage individual, group and milieu therapies. 4. Encourage sober living treatment after discharge at the highest level of ca re to which he is willing to commit. 5. He is currently quite disorganized and would not be able to participate in rehab at this very moment but also overall is functionally impaired, but improving. Involuntary Hold Information 96 Hour Hold: 96 Hour Involuntary Admission: No Attestations NPU Medical Necessity Statement*: Inpatient hospitalization is medically necessary and the clinically appropriate intervention at this time. We will monitor medications and make changes as indicated. Likely length of stay 1-3 days. Coding Level of Care Code Acute Gang Head Saw Operator for Froy Lozano
[2021-03-05 20:26] VITALS: BP 106/65; PULSE 53; RESP 21; TEMP 36.8; O2SAT 98
[2021-03-06 06:00] VITALS: BP 105/62; PULSE 54; RESP 17; TEMP 36.8; O2SAT 97
[2021-03-06 13:52] VITALS: BP 110/61; PULSE 63; RESP 17; TEMP 36.9; O2SAT 98
--- NOTE | 2021-03-06 17:56 | PM.NPN ---
Subjective NPU Subjective: Interval history: Landry presents today continuing to struggle with his expressive aphasia. Even at times he is frustration as he misses the market he tries to communicate something without using the actual words of that thing. He continues to attempt to express his desire to discharge but had a safe place to go for any plan that would be reasonable for his departure. He has been accepted at a rehab however he is in no condition to participate. Mental Status Exam MSE Comments: This is an underweight white male with hospital scrubs on with limited grooming and eye contact. No abnormal movements except for mild psychomotor agitation. Cooperative with exam in no acute distress. Speech was increased rate normal volume, but with pauses as he tries to find words. Mood described as good, affect odd but less irritable. Thought process disorganized. Thought content: Patient denied suicidal or homicidal ideation, there were no delusions reported but paranoia noted, he denied auditory or visual hallucinations. Attention and concentration appeared improving and memory was improving but none were formally tested. He was alert and oriented x3. Insight and judgment are impaired, impulse control is impaired. Vitals/I&O/Wt Last Vital Signs Temp 99.0 F 03/06/21 21:31 Pulse 71 03/06/21 21:31 Resp 18 03/06/21 21:31 BP 103/63 03/06/21 21:31 Pulse Ox 98 03/06/21 21:31 Data NPU : 02/27/21 16:03 02/27/21 16:03 A&P Additional A&P Information (1) Acute psychosis: (2) Schizophrenia: (3) Methamphetamine dependence: Additional A&P Information This is a 25-year-old white male with schizophrenia and methamphetamine use who presents floridly psychotic and disorganized likely secondary to methamphetamine use who presents reporting that he is willing to go back to a controlled inpatient environment. 1. Continue current medication. He is considering Zyprexa. 2. Continue every 15 minute checks for safety. 3. Encourage individual, group and milieu therapies. 4. Encourage sober living treatment after discharge at the highest level of care to which he is willing to commit. 5. He is currently quite disorganized and would not be able to participate in rehab at this very moment but also overall is functionally impaired, but improving. Involuntary Hold Information 96 Hour Hold: 96 Hour Involuntary Admission: No Attestations NPU Medical Necessity Statement*: Inpatient hospitalization is medically necessary and the clinically appropriate intervention at this time. We will monitor medications and make changes as indicated. Likely length of stay 1-3 days. Coding Level of Care Code Acute Fashion Marketer for Froy Lozano
[2021-03-06] MEDS: OLANZapine 5 mg ODT PO (21:27)
--- NOTE | 2021-03-06 21:30 | PC.NURSE ---
Patient was getting anxious and agitated. He was having increased difficulty with verbal communication. He refused Vistaril or Trazodone. Specifically requested Zyprexa It only work . Zyprexa 5mg PO given.
[2021-03-06 21:31] VITALS: BP 103/63; PULSE 71; RESP 18; TEMP 37.2; O2SAT 98
[2021-03-07 06:00] VITALS: BP 98/53; PULSE 62; RESP 16; TEMP 37; O2SAT 97
--- NOTE | 2021-03-07 13:04 | PM.NPN ---
Subjective NPU Subjective: Interval history: Landry presents today seeming essentially status quo with his current presentation. He has moments of frustration as he is aware of his limitations and communicating his thoughts. He is sometimes closer than others and conveying his messages but mostly he wanted to off. He seems understand our reticence to discharge him given the significant danger his communication difficulties and addiction intersecting could bring. He is eating and sleeping fine. Mental Status Exam MSE Comments: This is an underweight white male with hospital scrubs on with limited grooming and eye contact. No abnormal movements except for mild psychomotor agitation. Cooperative with exam in no acute distress. Speech was increased rate normal volume, but with pauses as he tries to find words. Mood described as same idea, affect odd. Thought process disorganized. Thought content: Patient denied suicidal or homicidal ideation, there were no delusions reported but paranoia noted, he denied auditory or visual hallucinations. Attention and concentration appeared improving and memory was improving but none were formally tested. He was alert and oriented x3. Insight and judgment are impaired, impulse control is impaired. Vitals/I&O/Wt Last Vital Signs Temp 98.6 F 03/07/21 06:00 Pulse 62 03/07/21 06:00 Resp 16 03/07/21 06:00 BP 98/53 03/07/21 06:00 Pulse Ox 97 03/07/21 06:00 Data NPU : 02/27/21 16:03 02/27/21 16:03 A&P Additional A&P Information (1) Acute psychosis: (2) Schizophrenia: (3) Methamphetamine dependence: Additional A&P Information This is a 25-year-old white male with schizophrenia and methamphetamine use who presents floridly psychotic and disorganized likely secondary to methamphetamine use who presents reporting that he is willing to go back to a controlled inpatient environment. 1. Continue current medication. Zyprexa 10 mg p.o. nightly. 2. Continue every 15 minute checks for safety. 3. Encourage individual, group and milieu therapies. 4. Encourage sober living treatment after discharge at the highest level of care to which he is willing to commit. 5. He is currently quite disorganized and would not be able to participate in rehab at this very moment but also overall is functionally impaired, but improving. Involuntary Hold Information 96 Hour Hold: 96 Hour Involuntary Admission: No Attestations NPU Medical Necessity Statement*: Inpatient hospitalization is medically necessary and the clinically appropriate intervention at this time. We will monitor medications and make changes as indicated. Likely length of stay 3-5 days. Coding Level of Care Code Acute Glycerine Plant Operator for Froy Lozano
[2021-03-07 14:00] VITALS: BP 92/49; PULSE 60; RESP 18; TEMP 36.5; O2SAT 97
[2021-03-07 20:08] VITALS: BP 96/61; PULSE 54; RESP 18; TEMP 36.9; O2SAT 97
[2021-03-07] MEDS: OLANZapine 10 mg TABLET PO (21:11)
[2021-03-08 06:00] VITALS: BP 96/57; PULSE 58; RESP 15; TEMP 36.8; O2SAT 96
[2021-03-08 14:00] VITALS: BP 96/57; PULSE 58; RESP 15; TEMP 36.8; O2SAT 96
[2021-03-08 15:20] VITALS: BP 98/58; PULSE 63; RESP 16; TEMP 36.8; O2SAT 96
--- NOTE | 2021-03-08 17:56 | PM.NPN ---
Subjective NPU Subjective: Interval history: Landry presents today as best he can communicate Zyprexa is not causing him any problems. Reports he slept a little better and he did not express the problems or concerns with the Zyprexa. He continues to have problems communicating his thoughts and seems to be a bit frustrated by it. Mental Status Exam MSE Comments: This is an underweight white male with hospital scrubs on with limited grooming and eye contact. No abnormal movements except for mild psychomotor agitation. Cooperative with exam in no acute distress. Speech was limited, but when he speaks somewhat increased rate normal volume, but with pauses as he tries to find words. Mood answered with a head nod, affect odd and frustrated. Thought process disorganized. Thought content: Patient denied suicidal or homicidal ideation, there were no delusions reported or noted, he denied auditory or visual hallucinations. Attention and concentration appeared improving and memory was improving but none were formally tested. He was alert and oriented x3. Insight and judgment are limited, impulse control is limited. Vitals/I&O/Wt Last Vital Signs Temp 98.3 F 03/08/21 15:20 Pulse 63 03/08/21 15:20 Resp 16 03/08/21 15:20 BP 98/58 03/08/21 15:20 Pulse Ox 96 03/08/21 15:20 Data NPU : 02/27/21 16:03 02/27/21 16:03 A&P Additional A&P Information (1) Acute psychosis: (2) Schizophrenia: (3) Methamphetamine dependence: Additional A&P Information This is a 25-year-old white male with schizophrenia and methamphetamine use who presents floridly psychotic and disorganized likely secondary to methamphetamine use who presents reporting that he is willing to go back to a controlled inpatient environment. 1. Continue current medication. 2. Continue every 15 minute checks for safety. 3. Encourage individual, group and milieu therapies. 4. Encourage sober living treatment after discharge at the highest level of care to which he is willing to commit. 5. He is currently quite disorganized and would not be able to participate in rehab at this very moment but also overall is functionally impaired, but improving. Involuntary Hold Information 96 Hour Hold: 96 Hour Involuntary Admission: No Attestations NPU Medical Necessity Statement*: Inpatient hospitalization is medically necessary and the clinically appropriate intervention at this time. We will monitor medications and make changes as indicated. Likely length of stay 3-5 days. Coding Level of Care Code Acute Whiting Machine Operator for Froy Lozano
[2021-03-08 20:49] VITALS: BP 101/64; PULSE 76; RESP 18; TEMP 36.9; O2SAT 98
[2021-03-08] MEDS: OLANZapine 10 mg TABLET PO (20:55)
[2021-03-09 06:00] VITALS: BP 94/56; PULSE 60; RESP 16; TEMP 36.7; O2SAT 96
[2021-03-09 14:00] VITALS: BP 111/58; PULSE 75; RESP 16; TEMP 37; O2SAT 97
--- NOTE | 2021-03-09 19:57 | PM.NPN ---
Subjective NPU Subjective: Interval history: Landry presents today essentially unchanged reporting that he is doing ok with his medication and still wants to leave but knows he is not as well as he should be. He is eating and sleeping OK. He denied any new issues. Mental Status Exam MSE Comments: This is an underweight white male with hospital scrubs on with limited grooming and eye contact. No abnormal movements except for mild psychomotor agitation. Cooperative with exam in no acute distress. Speech was limited, but when he speaks somewhat increased rate normal volume, but with pauses as he tries to find words. Mood described as OK, affect odd and frustrated. Thought process disorganized. Thought content: Patient denied suicidal or homicidal ideation, there were no delusions reported or noted, he denied auditory or visual hallucinations. Attention and concentration appeared improving and memory was improving but none were formally tested. He was alert and oriented x3. Insight and judgment are limited, impulse control is limited. Vitals/I&O/Wt Last Vital Signs Temp 98.6 F 03/09/21 14:00 Pulse 75 03/09/21 14:00 Resp 16 03/09/21 14:00 BP 111/58 03/09/21 14:00 Pulse Ox 97 03/09/21 14:00 Weight last 48 hrs Weight 63.049 kg Data NPU : 02/27/21 16:03 02/27/21 16:03 A&P Additional A&P Information (1) Acute psychosis: (2) Schizophrenia: (3) Methamphetamine dependence: Additional A&P Information This is a 25-year-old white male with schizophrenia and methamphetamine use who presents floridly psychotic and disorganized likely secondary to methamphetamine use who presents reporting that he is willing to go back to a controlled inpatient environment. 1. Continue current medication. 2. Continue every 15 minute checks for safety. 3. Encourage individual, group and milieu therapies. 4. Encourage sober living treatment after discharge at the highest level of care to which he is willing to commit. 5. He is currently quite disorganized and would not be able to participate in rehab at this very moment but also overall is functionally impaired, but improving. Involuntary Hold Information 96 Hour Hold: 96 Hour Involuntary Admission: No Attestations NPU Medical Necessity Statement*: Inpatient hospitalization is medically necessary and the clinically appropriate intervention at this time. We will monitor medications and make changes as indicated. Likely length of stay 3-5 days. Coding Level of Care Code Acute Director Of Government Sales for [facility] [employer]
[2021-03-09] MEDS: OLANZapine 10 mg TABLET PO (20:47)
[2021-03-09 22:00] VITALS: BP 114/79; PULSE 18; RESP 84; TEMP 36.4; O2SAT 96
[2021-03-10 06:00] VITALS: BP 132/78; PULSE 66; RESP 17; TEMP 37.1; O2SAT 97
[2021-03-10 14:00] VITALS: BP 101/54; PULSE 70; RESP 18; TEMP 36.3; O2SAT 96
--- NOTE | 2021-03-10 14:08 | PM.NPN ---
Subjective NPU Subjective: Interval history: Landry presents today continuing to have the same limitations of his expressive aphasia. We discussed the fact that we believe he may need a guardian to have safe functioning society with a slow resolution of the encephalopathy likely caused by his methamphetamine use. He is unable to speak directly and is usually in a 1 off position and expressing himself but he was more or less stating that he did not want to have a guardian. We discussed our concerns about him being safe outside of the hospital. Mental Status Exam MSE Comments: This is an underweight white male with hospital scrubs on with adequate grooming and eye contact. No abnormal movements except for mild psychomotor agitation. Cooperative with exam in no acute distress. Speech was limited, but when he speaks somewhat increased rate normal volume, but with pauses as he tries to find words. Mood described as OK, affect odd and frustrated. Thought process disorganized. Thought content: Patient denied suicidal or homicidal ideation, there were no delusions reported or noted, he denied auditory or visual hallucinations. Attention and concentration appeared improving and memory was improving but none were formally tested. He was alert and oriented x3. Insight and judgment are limited, impulse control is limited. Vitals/I&O/Wt Last Vital Signs Temp 99.3 F 03/10/21 22:00 Pulse 71 03/10/21 22:00 Resp 18 03/10/21 22:00 BP 108/54 03/10/21 22:00 Pulse Ox 95 03/10/21 22:00 Data NPU : 02/27/21 16:03 02/27/21 16:03 A&P Assessment and plan (1) Expressive aphasia: Status: Acute (2) Acute psychosis: Status: Acute (3) Schizophrenia: Status: Acute (4) Methamphetamine dependence: Status: Acute Additional A&P Information This is a 25-year-old white male with schizophrenia and methamphetamine use who presents floridly psychotic and disorganized likely secondary to methamphetamine use who presents reporting that he is willing to go back to a controlled inpatient environment. 1. Continue current medication. 2. Continue every 15 minute checks for safety. 3. Encourage individual, group and milieu therapies. 4. Encourage sober living treatment after discharge at the highest level of care to which he is willing to commit. 5. He is currently quite disorganized and would not be able to participate in rehab at this very moment but also overall is functionally impaired, but improving. 6. Will likely be guardianship to leave the hospital safely. Involuntary Hold Information 96 Hour Hold: 96 Hour Involuntary Admission: No Attestations NPU Medical Necessity Statement*: Inpatient hospitalization is medically necessary and the clinically appropriate intervention at this time. We will monitor medications and make changes as indicated. Likely length of stay 3-5 days. Coding Level of Care Code Acute Finisher Fine Diamond Dies for [facility] Diagnoses Expressive aphasia R47.01 Acute psychosis F23 Schizophrenia F20.9 Methamphetamine dependence F15.20
[2021-03-10] MEDS: OLANZapine 10 mg TABLET PO (20:11)
[2021-03-10 22:00] VITALS: BP 108/54; PULSE 71; RESP 18; TEMP 37.4; O2SAT 95
[2021-03-11 06:00] VITALS: BP 99/61; PULSE 64; RESP 17; TEMP 36.7; O2SAT 98
[2021-03-11 14:00] VITALS: BP 117/65; PULSE 82; RESP 20; TEMP 36.5; O2SAT 98
--- NOTE | 2021-03-11 15:54 | P.PN_ITS ---
Subjective NPU Subjective: Interval history: Landry presents today reporting that he would prefer to leave. He continues to have his expressive aphasia making the simplest of conversations quite complicated for him. We discussed the fact that we are submitting guardianship papers and though he did not go to extremes he was unhappy with the process and try to express multiple times the concept of why can he be discharged. I discussed the fact that I was debating putting him on a 96-hour hold. He continues to eat and sleep fine but struggles in the area of expressive communication. Mental Status Exam MSE Comments: This is an underweight white male with hospital scrubs on with adequate grooming and eye contact. No abnormal movements except for mild psychomotor agitation. Cooperative with exam in no acute distress. Speech was limited, but when he speaks somewhat increased rate normal volume, but with pauses as he tries to find words. Mood described as OK, affect odd and frustrated. Thought process disorganized. Thought content: Patient denied suicidal or homicidal ideation, there were no delusions reported or noted, he denied auditory hallucinations. Attention and concentration appeared improving and memory was improving but none were formally tested. He was alert and orient ed x3. Insight and judgment are limited, impulse control is limited. Vitals/I&O/Wt Last Vital Signs Temp 98.8 F 03/11/21 20:33 Pulse 62 03/11/21 20:33 Resp 17 03/11/21 20:33 BP 102/62 03/11/21 20:33 Pulse Ox 96 03/11/21 20:33 Data NPU : 02/27/21 16:03 02/27/21 16:03 A&P Additional A&P Information (1) Expressive aphasia: (2) Acute psychosis: (3) Schizophrenia: (4) Methamphetamine dependence: Additional A&P Information This is a 25-year-old white male with schizophrenia and methamphetamine use who presents floridly psychotic and disorganized likely secondary to methamphetamine use who presents reporting that he is willing to go back to a controlled inpatient environment. 1. Continue current medication. 2. Continue every 15 minute checks for safety. 3. Encourage individual, group and milieu therapies. 4. Encourage sober living treatment after discharge at the highest level of care to which he is willing to commit. 5. He is currently quite disorganized and would not be able to participate in rehab at this very moment but also overall is functionally impaired, but improving. 6. Submitted guardianship papers. Involuntary Hold Information 96 Hour Hold: 96 Hour Involuntary Admission: No Attestations NPU Medical Necessity Statement*: Inpatient hospitalization is medically necessary and the clinically appropriate intervention at this time. We will monitor medications and make changes as indicated. Likely length of stay 6-10 days. Coding Level of Care Code Acute Public Service Director for Froy Lozano
[2021-03-11 20:33] VITALS: BP 102/62; PULSE 62; RESP 17; TEMP 37.1; O2SAT 96
[2021-03-11] MEDS: OLANZapine 10 mg TABLET PO (21:17)
[2021-03-12 06:00] VITALS: BP 104/60; PULSE 64; RESP 17; TEMP 37; O2SAT 99
[2021-03-12 14:00] VITALS: BP 97/64; PULSE 96; RESP 16; TEMP 36.7; O2SAT 96
--- NOTE | 2021-03-12 14:34 | P.PN_ITS ---
Subjective NPU Subjective: Interval history: Landry presents today essentially unchanged and continuing to have prominent expressive aphasia making it very frustrating for him to talk with this commercial lines underwriter as he continues to press for discharge as we explore guardianship awaiting response from the courts. We discussed the back to Dr. Jordan be here tomorrow and he was fixated on the fact that he could make a different decision and this commercial lines underwriter which I confirmed but explained to him the treatment team's concern. He is eating okay and continues to isolate. Mental Status Exam MSE Comments: This is an underweight white male with hospital scrubs on with adequate grooming and eye contact. No abnormal movements except for mild psychomotor agitation. Cooperative with exam in no acute distress. Speech was limited, but when he speaks somewhat increased rate normal volume, but with pauses as he tries to find words. Mood described as fine, affect odd and frustrated. Thought process disorganized. Thought content: Patient denied suicidal or homicidal ideation, there were no delusions reported or noted, he denied auditory hallucinations. Attention and concentration appeared improving and memory was improving but none were formally tested. He was alert and oriented x3. Insight and judgment are limited, impulse control is limited. Vitals/I&O/Wt Last Vital Signs Temp 98.8 F 03/12/21 20:57 Pulse 55 L 03/12/21 20:57 Resp 16 03/12/21 20:57 BP 110/63 03/12/21 20:57 Pulse Ox 96 03/12/21 20:57 Data NPU : 02/27/21 16:03 02/27/21 16:03 A&P Additional A&P Information (1) Expressive aphasia: (2) Acute psychosis: (3) Schizophrenia: (4) Methamphetamine dependence: Additional A&P Information This is a 25-year-old white male with schizophrenia and methamphetamine use who presents floridly psychotic and disorganized likely secondary to methamphetamine use who presents reporting that he is willing to go back to a controlled i npatient environment. 1. Continue current medication. 2. Continue every 15 minute checks for safety. 3. Encourage individual, group and milieu therapies. 4. Encourage sober living treatment after discharge at the highest level of care to which he is willing to commit. 5. He is currently quite disorganized and would not be able to participate in rehab at this very moment but also overall is functionally impaired, but improving. 6. Submitted guardianship papers. Involuntary Hold Information 96 Hour Hold: 96 Hour Involuntary Admission: No Attestations NPU Medical Necessity Statement*: Inpatient hospitalization is medically necessary and the clinically appropriate intervention at this time. We will monitor medications and make changes as indicated. Likely length of stay 5-9 days. Coding Level of Care Code Acute Rubber Extrusion Machine Operator for [facility]
[2021-03-12] MEDS: OLANZapine 10 mg TABLET PO (20:56)
[2021-03-12 20:57] VITALS: BP 110/63; PULSE 55; RESP 16; TEMP 37.1; O2SAT 96
[2021-03-13 06:00] VITALS: BP 95/56; PULSE 58; RESP 18; TEMP 36.6; O2SAT 97
--- NOTE | 2021-03-13 13:24 | PM.NPN ---
Subjective NPU Subjective: Interval history: Patient continues to demonstrate expressive aphasia with difficulty expressing his desire speaking in a paraphasic manner Denies any interval mood symptoms although he does report feeling irritable and frustrated Denies any interval auditory or visual destinations Reports being compliant with medication, denies any medication side effects Continues to lack insight into lack of ability to provide for self-care secondary to ongoing substance use Mental Status Exam MSE Comments: Lying in bed, continues to appear underweight, tired appearing, somewhat frustrated, irritable but cooperative with interview Psychomotor activity is neither increased or decreased, no agitation Speech continues to demonstrate difficulty expressing himself, normal volume, not pressured I am fine, I am rehabilitated, full range, not labile Alert and oriented to person, place, time Memory and concentration are fair per interview Thought process, frequent pauses, some difficulty with piecing together thoughts Thought content, no stated delusions, does not appear to be attending to any internal stimuli, no suicidal or homicidal ideation Insight and judgment appear to be limited Vitals/I&O/Wt Last Vital Signs Temp 97.8 F 03/13/21 06:00 Pulse 58 L 03/13/21 06:00 Resp 18 03/13/21 06:00 BP 95/56 03/13/21 06:00 Pulse Ox 97 03/13/21 06:00 Data NPU : 02/27/21 16:03 02/27/21 16:03 A&P Assessment and plan (1) Expressive aphasia: Status: Acute (2) Acute psychosis: Status: Acute (3) Schizophrenia: Status: Acute (4) Methamphetamine dependence: Status: Acute Additional A&P Information Ongoing expressive aphasia in context of longstanding methamphetamine use with frequent relapses, concerns about ability to provide for self-care CONTINUE current medication, continue to monitor Continues to be pending guardianship Involuntary Hold Information 96 Hour Hold: 96 Hour Involuntary Admission: No Attestations NPU Medical Necessity Statement*: Continues to require psychiatric hospitalization, pending guardianship Coding Level of Care Code Acute Subsystems Engineer for [facility] Diagnoses Expressive aphasia R47.01 Acute psychosis F23 Schizophrenia F20.9 Methamphetamine dependence F15.20
[2021-03-13 14:00] VITALS: BP 101/65; PULSE 66; RESP 16; TEMP 36.9; O2SAT 96
[2021-03-13] MEDS: OLANZapine 10 mg TABLET PO (20:33)
[2021-03-13 20:42] VITALS: BP 121/71; PULSE 75; RESP 16; TEMP 37.1; O2SAT 97
--- NOTE | 2021-03-14 00:36 | PC.NURSE ---
pm ASSESSMENT PT DENIES PAIN, DENIES SI/HI, DENIES VH, STATES HE IS HEARING VOICES, PT IS ATTEMPTING TO CARRY ON CONVERSATIONS WITH STAFF THIS EVENING, HE DOES GET FRUSTRATED BY HIS INABILITY TO GET WORDS OUT CORRECTLY AT TIMES, HE IS EASY TO INTERACT WITH, VERY PLEASANT.
[2021-03-14 05:58] VITALS: BP 100/60; PULSE 64; RESP 16; TEMP 36.9; O2SAT 95
[2021-03-14] MEDS: nicotine 2 mg Gum BUCCAL ×3 (10:04→16:53)
--- NOTE | 2021-03-14 13:12 | P.PN_ITS ---
Subjective NPU Subjective: Interval history: Denies any interval problems Denies any interval mood symptoms, denies any depressive symptoms, reports some frustration but states that he understands his current situation waiting for guardianship Denies any interval psychotic symptoms Reports being compliant with his medication, denies any medication side effects Mental Status Exam MSE Comments: Sits up on his bed for interview, appropriately groomed and dressed, calm, cooperative, interactive Psychomotor activity is neither increased or decreased, no agitation Speech continues to demonstrate difficulty expressing himself, normal volume, not pressured I feel okay, full range, not labile Alert and oriented to person, place, time Memory and concentration are fair per interview Thought process, frequent pauses, some difficulty with piecing together thoughts Thought content, no stated delusions, does not appear to be attending to any internal stimuli, no suicidal or homicidal ideation Insight and judgment appear to be limited Vitals/I&O/Wt Last Vital Signs Temp 98.4 F 03/14/21 05:58 Pulse 64 03/14/21 05:58 Resp 16 03/14/21 05:58 BP 100/60 03/14/21 05:58 Pulse Ox 95 03/14/21 05:58 Data NPU : 02/27/21 16:03 02/27/21 16:03 A&P Assessment and plan (1) Expressive aphasia: Status: Acute (2) Acute psychosis: Status: Acute (3) Methamphetamine dependence: Status: Acute (4) Schizophrenia: Status: Acute Additional A&P Information No interval changes Continue to wait for guardianship to be processed CONTINUE current medication, continue to monitor Involuntary Hold Information 96 Hour Hold: 96 Hour Involuntary Admission: No Attestations NPU Medical Necessity Statement*: Continues to require psychiatric hospitalization for medication stabilization, pending guardianship Coding Level of Care Code Acute Supervisor Self Service Store for [facility] Diagnoses Expressive aphasia R47.01 Acute psychosis F23 Methamphetamine dependence F15.20 Schizophrenia F20.9
[2021-03-14 14:00] VITALS: BP 109/66; PULSE 86; RESP 17; TEMP 37.4; O2SAT 93
[2021-03-14 19:58] VITALS: BP 113/78; PULSE 100; RESP 18; TEMP 36.6; O2SAT 96
[2021-03-14] MEDS: OLANZapine 10 mg TABLET PO (21:05)
[2021-03-15 06:00] VITALS: BP 102/59; PULSE 55; RESP 17; TEMP 36.7; O2SAT 96
--- NOTE | 2021-03-15 11:57 | P.PN_ITS ---
Subjective NPU Subjective: Interval history: Continues to mostly stay by himself in his room Continues to have difficulty expressing himself Continues to be compliant with his medication and denies any medication side effects Denies any interval suicidal ideation Denies any interval mood symptoms Denies interval psychotic symptoms Per staff, compliant with medication and no interval behavioral disturbances Mental Status Exam MSE Comments: Lying in bed, calm, cooperative, interactive, appropriately groomed and dressed, fair eye contact Psychomotor activity is neither increased or decreased, no agitation Speech continues to demonstrate difficulty expressing himself, normal volume, not pressured Okay, full range, not labile Alert and oriented to person, place, time Memory and concentration are fair per interview Thought process, frequent pauses, some difficulty with piecing together thoughts Thought content, no stated delusions, no hallucinations, no suicidal or homicidal ideation Insight and judgment appear to be limited Vitals/I&O/Wt Last Vital Signs Temp 98.1 F 03/15/21 06:00 Pulse 55 L 03/15/21 06:00 Resp 17 03/15/21 06:00 BP 102/59 03/15/21 06:00 Pulse Ox 96 03/15/21 06:00 Data NPU : 02/27/21 16:03 02/27/21 16:03 A&P Assessment and plan (1) Expressive aphasia: Status: Acute (2) Acute psychosis: Status: Acute (3) Schizophrenia: Status: Acute (4) Methamphetamine dependence: Status: Acute Additional A&P Information Continues to be pending guardianship CONTINUE current medication, continue to monitor Involuntary Hold Information 96 Hour Hold: 96 Hour Involuntary Admission: No Attestations NPU Medical Necessity Statement*: Continues to be pending guardianship, continues to require psychiatric hospitalization Coding Level of Care Code Acute Conservation Of Resources Commissioner for [facility] Fwd Diagnoses Expressive aphasia R47.01 Acute psychosis F23 Schizophrenia F20.9 Methamphetamine dependence F15.20
[2021-03-15 13:49] VITALS: BP 100/57; PULSE 69; RESP 14; TEMP 37; O2SAT 97
[2021-03-15] MEDS: nicotine 2 mg Gum BUCCAL (18:27)
[2021-03-15] MEDS: OLANZapine 10 mg TABLET PO (20:42)
[2021-03-15 22:00] VITALS: BP 100/60; PULSE 64; RESP 16; TEMP 36.3; O2SAT 96
[2021-03-16 06:00] VITALS: BP 120/80; PULSE 62; RESP 18; TEMP 36.7; O2SAT 97; BMI 19.3
--- NOTE | 2021-03-16 09:30 | PM.NPN ---
Subjective NPU Subjective: Interval history: Denies any interval changes. Continues to be compliant with medication and denies any medication side effects Denies any interval psychotic symptoms Per staff, no interval behavioral disturbances Mental Status Exam MSE Comments: Sitting up on his bed, calm, cooperative, interactive, appropriately groomed and dressed, fair eye contact Psychomotor activity is neither increased or decreased, no agitation Speech continues to demonstrate difficulty expressing himself, normal volume, not pressured I feel okay, full range, not labile Alert and oriented to person, place, time Memory and concentration are fair per interview Thought process, frequent pauses, some difficulty with piecing together thoughts Thought content, no stated delusions, no hallucinations, no suicidal or homicidal ideation Insight and judgment appear to be limited Vitals/I&O/Wt Last Vital Signs Temp 98.0 F 03/16/21 06:00 Pulse 62 03/16/21 06:00 Resp 18 03/16/21 06:00 BP 120/80 03/16/21 06:00 Pulse Ox 97 03/16/21 06:00 Weight last 48 hrs Weight 63.049 kg Data NPU : 02/27/21 16:03 02/27/21 16:03 A&P Assessment and plan (1) Expressive aphasia: Status: Acute (2) Acute psychosis: Status: Acute (3) Schizophrenia: Status: Acute Qualifiers: Schizophrenia type: unspecified Qualified Code(s): F20.9 - Schizophrenia, unspecified (4) Methamphetamine dependence: Status: Acute Additional A&P Information Denies any interval changes CONTINUE current medication, continue to monitor Involuntary Hold Information 96 Hour Hold: 96 Hour Involuntary Admission: No Attestations NPU Medical Necessity Statement*: Continues to require psychiatric hospitalization for stabilization, coordination for safe discharge Coding Level of Care Code Acute Education Program Coordinator for [facility] Fw Diagnoses Expressive aphasia R47.01 Acute psychosis F23 Schizophrenia F20.9 Schizophrenia type: unspecified Methamphetamine dependence F15.20
[2021-03-16] MEDS: nicotine 2 mg Gum BUCCAL ×2 (12:21→18:22)
[2021-03-16 14:00] VITALS: BP 105/71; PULSE 77; RESP 20; TEMP 36.6; O2SAT 97
[2021-03-16 20:11] VITALS: BP 97/61; PULSE 67; RESP 20; TEMP 37.2; O2SAT 97
[2021-03-16] MEDS: OLANZapine 10 mg TABLET PO (20:33)
[2021-03-17 06:00] VITALS: BP 92/58; PULSE 64; RESP 18; TEMP 36.6; O2SAT 95
--- NOTE | 2021-03-17 08:04 | PC.NURSE ---
AM note Patient in bed resting. Patient awoke easily asking when breakfast would be here. RN explained that breakfast would be here shortly. Patient explained that he is during better and the the voices are at a minimal.
[2021-03-17] MEDS: nicotine 2 mg Gum BUCCAL ×3 (10:02→14:23)
--- NOTE | 2021-03-17 11:50 | PM.NPN ---
Subjective NPU Subjective: Interval history: Lying in bed but getting out of bed for meals, mostly staying in his room Continues to be compliant with medication and denies any medication side effects Denies any interval psychotic symptoms Per staff, no interval behavioral disturbances Mental Status Exam MSE Comments: Lying in bed, polite, interactive, appropriately groomed and dressed, fair eye contact Psychomotor activity is neither increased or decreased, no agitation Speech continues to demonstrate difficulty expressing himself, normal volume, not pressured Good, somewhat constricted, not labile Alert and oriented to person, place, time Memory and concentration are fair per interview Thought process, frequent pauses, linear but brief Thought content, no stated delusions, no hallucinations, no suicidal or homicidal ideation Insight and judgment appear to be limited Vitals/I&O/Wt Last Vital Signs Temp 97.9 F 03/17/21 06:00 Pulse 64 03/17/21 06:00 Resp 18 03/17/21 06:00 BP 92/58 03/17/21 06:00 Pulse Ox 95 03/17/21 06:00 Weight last 48 hrs Weight 63.049 kg Data NPU : 02/27/21 16:03 02/27/21 16:03 A&P Assessment and plan (1) Expressive aphasia: Status: Acute (2) Acute psychosis: Status: Acute (3) Schizophrenia: Status: Acute Qualifiers: Schizophrenia type: unspecified Qualified Code(s): F20.9 - Schizophrenia, unspecified (4) Methamphetamine dependence: Status: Acute Additional A&P Information Ongoing expressive aphasia, difficulty piecing together thoughts CONTINUE current medication, continue to monitor Involuntary Hold Information 96 Hour Hold: 96 Hour Involuntary Admission: No Attestations NPU Medical Necessity Statement*: Continues to require psychiatric hospitalization for medication stabilization, coordination for safe discharge Coding Level of Care Code Acute Director Gift for [facility] Fw Diagnoses Expressive aphasia R47.01 Acute psychosis F23 Schizophrenia F20.9 Schizophrenia type: unspecified Methamphetamine dependence F15.20
[2021-03-17 14:00] VITALS: BP 91/54; PULSE 77; RESP 18; TEMP 37.4; O2SAT 97
[2021-03-17] MEDS: OLANZapine 10 mg TABLET PO (20:41)
[2021-03-17 21:24] VITALS: BP 127/87; PULSE 97; RESP 15; TEMP 36.9; O2SAT 97
[2021-03-18 05:08] VITALS: BP 102/61; PULSE 60; RESP 16; TEMP 37.1; O2SAT 98
--- NOTE | 2021-03-18 10:19 | PM.NPN ---
Subjective NPU Subjective: Interval history: Standing near the nurses station, denies any interval complaints, mostly staying in his room Continues to be compliant with medication and denies any medication side effects Denies any interval psychotic symptoms Per staff, no interval behavioral disturbances Mental Status Exam MSE Comments: Standing at the nurses station, appropriately groomed and dressed wearing hospital scrubs, calm, cooperative Psychomotor activity is neither increased or decreased, no agitation Speech continues to demonstrate difficulty expressing himself, normal volume, not pressured I feel okay, somewhat constricted, not labile Alert and oriented to person, place, time Memory and concentration are fair per interview Thought process, frequent pauses, linear but brief Thought content, no stated delusions, no hallucinations, no suicidal or homicidal ideation Insight and judgment appear to be limited Vitals/I&O/Wt Last Vital Signs Temp 98.8 F 03/18/21 05:08 Pulse 60 03/18/21 05:08 Resp 16 03/18/21 05:08 BP 102/61 03/18/21 05:08 Pulse Ox 98 03/18/21 05:08 Data NPU : 02/27/21 16:03 02/27/21 16:03 A&P Assessment and plan (1) Expressive aphasia: Status: Acute (2) Acute psychosis: Status: Acute (3) Schizophrenia: Status: Acute Qualifiers: Schizophrenia type: unspecified Qualified Code(s): F20.9 - Schizophrenia, unspecified (4) Methamphetamine dependence: Status: Acute Additional A&P Information Pending guardianship, ongoing expressive aphasia, difficulty piecing together thoughts CONTINUE current medication, continue to monitor Involuntary Hold Information 96 Hour Hold: 96 Hour Involuntary Admission: No Attestations NPU Medical Necessity Statement*: Continues to require psychiatric hospitalization for medication stabilization Coding Level of Care Code Acute Rv Repair Technician for [facility] Fwd Diagnoses Expressive aphasia R47.01 Acute psychosis F23 Schizophrenia F20.9 Schizophrenia type: unspecified Methamphetamine dependence F15.20
--- NOTE | 2021-03-18 12:02 | PC.NUTR ---
Nutrition follow up: Noted double portions added to diet order on 03/15/21. Requested current weight, which was found to be 136.2, indicating 2.8 lb weight loss since admission. Consuming 100% of most meals per chart review. No further changes warranted. See RD assessments for further details.
[2021-03-18 13:12] VITALS: BP 117/64; PULSE 86; RESP 16; TEMP 37.5; O2SAT 97
[2021-03-18 20:54] VITALS: BP 92/49; PULSE 70; RESP 16; TEMP 37.2; O2SAT 97
[2021-03-18] MEDS: OLANZapine 10 mg TABLET PO (21:46)
[2021-03-19 06:00] VITALS: BP 103/59; PULSE 68; RESP 15; TEMP 37.2; O2SAT 96
--- NOTE | 2021-03-19 06:33 | PC.NURSE ---
PM Assessment Pt calm, cooperative, helpful tonight. Pt is beginning to put sentences together better than last week
--- NOTE | 2021-03-19 13:26 | P.PN_ITS ---
Subjective NPU Subjective: Interval history: Lying in bed, gets up for meals, interacts on the milieu with no reports of any behavioral disturbances Continues to be compliant with medication and denies any medication side effects Denies any interval psychotic symptoms Mental Status Exam MSE Comments: Lying in bed initially but sits up for interview, calm, cooperative, interactive, appropriately groomed and dressed wearing hospital scrubs Psychomotor activity is neither increased or decreased, no agitation Speech continues to demonstrate difficulty expressing himself, normal volume, not pressured Good, somewhat constricted, not labile Alert and oriented to person, place, time Memory and concentration are fair per interview Thought process, frequent pauses, linear but brief Thought content, no stated delusions, no hallucinations, no suicidal or homicidal ideation Insight and judgment appear to be fair to intact Vitals/I&O/Wt Last Vital Signs Temp 98.9 F 03/19/21 06:00 Pulse 68 03/19/21 06:00 Resp 15 03/19/21 06:00 BP 103/59 03/19/21 06:00 Pulse Ox 96 03/19/21 06:00 Data NPU : 02/27/21 16:03 02/27/21 16:03 A&P Assessment and plan (1) Expressive aphasia: Status: Acute (2) Acute psychosis: Status: Acute (3) Schizophrenia: Status: Acute Qualifiers: Schizophrenia type: unspecified Qualified Code(s): F20.9 - Schizophrenia, unspecified (4) Methamphetamine dependence: Status: Acute Additional A&P Information Pending guardianship, ongoing expressive aphasia, difficulty piecing together thoughts CONTINUE current medication, continue to monitor Involuntary Hold Information 96 Hour Hold: 96 Hour Involuntary Admission: No Attestations NPU Medical Necessity Statement*: Continues to require psychiatric hospitalization for stabilization, coordination for safe discharge Coding Level of Care Code Acute Maintenance Apprentice for [facility] Fw Diagnoses Expressive aphasia R47.01 Acute psychosis F23 Schizophrenia F20.9 Schizophrenia type: unspecified Methamphetamine dependence F15.20
[2021-03-19 14:00] VITALS: BP 118/78; PULSE 94; RESP 16; TEMP 37.1; O2SAT 97
[2021-03-19] MEDS: OLANZapine 10 mg TABLET PO (21:15)
[2021-03-19 22:00] VITALS: BP 112/72; PULSE 94; RESP 18; TEMP 36.8; O2SAT 97
[2021-03-20 06:00] VITALS: BP 168/64; PULSE 78; RESP 18; TEMP 37.1; O2SAT 95
--- NOTE | 2021-03-20 13:32 | P.PN_ITS ---
Subjective NPU Subjective: Interval history: Sitting up on his bed, interacts on the milieu with no reports of any behavioral disturbances Continues to be compliant with medication and denies any medication side effects Denies any interval psychotic symptoms Mental Status Exam MSE Comments: Sitting up in his bed, polite, interactive, appropriately groomed and dressed wearing hospital scrubs Psychomotor activity is neither increased or decreased, no agitation Speech continues to demonstrate difficulty expressing himself, normal volume, not pressured I feel okay, somewhat constricted, not labile Alert and oriented to person, place, time Memory and concentration are fair per interview Thought process, frequent pauses, linear but brief Thought content, no stated delusions, no hallucinations, no suicidal or homicidal ideation Insight and judgment appear to be fair to intact Vitals/I&O/Wt Last Vital Signs Temp 98.7 F 03/20/21 06:00 Pulse 78 03/20/21 06:00 Resp 18 03/20/21 06:00 BP 168/64 03/20/21 06:00 Pulse Ox 95 03/20/21 06:00 Data NPU : 02/27/21 16:03 02/27/21 16:03 A&P Assessment and plan (1) Expressive aphasia: Status: Acute (2) Acute psychosis: Status: Acute (3) Schizophrenia: Status: Acute Qualifiers: Schizophrenia type: unspecified Qualified Code(s): F20.9 - Schizophrenia, unspecified (4) Methamphetamine dependence: Status: Acute Additional A&P Information Pending guardianship, ongoing expressive aphasia, difficulty piecing together thoughts CONTINUE current medication, continue to monitor Involuntary Hold Information 96 Hour Hold: 96 Hour Involuntary Admission: No Attestations NPU Medical Necessity Statement*: Continues to require psychiatric hospitalization for stabilization Coding Level of Care Code Acute Sewage Plant Attendant for [facility] Fw Diagnoses Expressive aphasia R47.01 Acute psychosis F23 Schizophrenia F20.9 Schizophrenia type: unspecified Methamphetamine dependence F15.20
[2021-03-20 13:36] VITALS: BP 101/58; PULSE 78; RESP 17; TEMP 36.9; O2SAT 97
[2021-03-20 19:36] VITALS: BP 106/67; PULSE 76; RESP 18; TEMP 37.1; O2SAT 99
[2021-03-20] MEDS: OLANZapine 10 mg TABLET PO (20:25)
[2021-03-20] MEDS: ibuprofen 600 mg Tablet PO (20:53)
--- NOTE | 2021-03-20 20:53 | PC.NURSE ---
Tooth pain pt requested Ibprophen for his teeth, states They hurt, a rate, the 7. Pt did not have this med available, calling physician. Pt refused tylenol.
[2021-03-21 06:00] VITALS: BP 104/53; PULSE 62; RESP 16; TEMP 36.8; O2SAT 96
--- NOTE | 2021-03-21 09:43 | PM.NPN ---
Subjective NPU Subjective: Interval history: Standing near the nurses station, continues to be appropriate on the unit with no reported mood symptoms or psychotic symptoms and no interval behavioral disturbances Continues to be compliant with medication and denies any medication side effects Mental Status Exam MSE Comments: Appropriately groomed and dressed, wearing hospital scrubs, calm, cooperative Psychomotor activity is neither increased or decreased, no agitation Speech continues to demonstrate difficulty expressing himself, normal volume, not pressured I am fine, constricted, not labile Alert and oriented to person, place, time Memory and concentration are fair per interview Thought process, frequent pauses, linear but brief Thought content, no stated delusions, no hallucinations, no suicidal or homicidal ideation Insight and judgment appear to be fair to intact Vitals/I&O/Wt Last Vital Signs Temp 98.2 F 03/21/21 06:00 Pulse 62 03/21/21 06:00 Resp 16 03/21/21 06:00 BP 104/53 03/21/21 06:00 Pulse Ox 96 03/21/21 06:00 Data NPU : 02/27/21 16:03 02/27/21 16:03 A&P Assessment and plan (1) Expressive aphasia: Status: Acute (2) Acute psychosis: Status: Acute (3) Schizophrenia: Status: Acute Qualifiers: Schizophrenia type: unspecified Qualified Code(s): F20.9 - Schizophrenia, unspecified (4) Methamphetamine dependence: Status: Acute Additional A&P Information No interval changes, pending guardianship, ongoing expressive aphasia, difficulty piecing together thoughts CONTINUE current medication, continue to monitor Involuntary Hold Information 96 Hour Hold: 96 Hour Involuntary Admission: No Attestations NPU Medical Necessity Statement*: Continues require psychiatric hospitalization for coordination of safe discharge Coding Level of Care Code Acute Network Operations Manager for [facility] Fw Diagnoses Expressive aphasia R47.01 Acute psychosis F23 Schizophrenia F20.9 Schizophrenia type: unspecified Methamphetamine dependence F15.20
[2021-03-21 14:00] VITALS: BP 113/79; PULSE 85; RESP 16; TEMP 36.9; O2SAT 96
[2021-03-21] MEDS: OLANZapine 10 mg TABLET PO (20:14)
[2021-03-21 20:41] VITALS: BP 119/67; PULSE 107; RESP 20; TEMP 36.8; O2SAT 96
[2021-03-22 06:00] VITALS: BP 110/65; PULSE 20; RESP 103; TEMP 36.8; O2SAT 96
--- NOTE | 2021-03-22 10:08 | P.PN_ITS ---
Subjective NPU Subjective: Interval history: Sitting in the day room, no interval complaints, continues to be appropriate on the unit with no reported mood symptoms or psychotic symptoms and no interval behavioral disturbances Continues to be compliant with medication and denies any medication side effects Mental Status Exam MSE Comments: Calm, cooperative, interactive, sitting in the day room, appr opriately groomed and dressed Psychomotor activity is neither increased or decreased, no agitation Speech continues to demonstrate difficulty expressing himself, normal volume, not pressured I feel okay, full range of affect, not labile Alert and oriented to person, place, time Memory and concentration are fair per interview Thought process, frequent pauses, linear but brief Thought content, no stated delusions, no hallucinations, no suicidal or homicidal ideation Insight and judgment appear to be fair to intact Vitals/I&O/Wt Last Vital Signs Temp 98.2 F 03/22/21 06:00 Pulse 20 L 03/22/21 06:00 Resp 103 H 03/22/21 06:00 BP 110/65 03/22/21 06:00 Pulse Ox 96 03/22/21 06:00 Data NPU : 02/27/21 16:03 02/27/21 16:03 A&P Assessment and plan (1) Expressive aphasia: Status: Acute (2) Acute psychosis: Status: Acute (3) Schizophrenia: Status: Acute Qualifiers: Schizophrenia type: unspecified Qualified Code(s): F20.9 - Schizophrenia, unspecified (4) Methamphetamine dependence: Status: Acute Additional A&P Information No interval changes, pending guardianship, ongoing expressive aphasia, difficulty piecing together thoughts CONTINUE current medication, continue to monitor Involuntary Hold Information 96 Hour Hold: 96 Hour Involuntary Admission: No Attestations NPU Medical Necessity Statement*: Continues to require psychiatric hospitalization for stabilization, pending guardianship Coding Level of Care Code Acute Price Checker for [facility] Diagnoses Expressive aphasia R47.01 Acute psychosis F23 Schizophrenia F20.9 Schizophrenia type: unspecified Methamphetamine dependence F15.20
[2021-03-22 14:00] VITALS: BP 109/64; PULSE 87; RESP 20; TEMP 36.3; O2SAT 96
[2021-03-22] MEDS: OLANZapine 10 mg TABLET PO (20:08)
[2021-03-22 20:55] VITALS: BP 104/72; PULSE 85; RESP 24; TEMP 36.8; O2SAT 97
[2021-03-23 06:00] VITALS: BP 96/55; PULSE 63; RESP 20; TEMP 36.7; O2SAT 96; BMI 19.3
--- NOTE | 2021-03-23 10:51 | P.PN_ITS ---
Subjective NPU Subjective: Interval history: Lying in bed resting, no interval complaints, continues to be appropriate on the unit with no reported mood symptoms or psychotic symptoms and no interval behavioral disturbances Continues to be compliant with medication and denies any medication side effects Mental Status Exam MSE Comments: Lying in bed, polite, interactive, appropriately groomed and gibson ssed Psychomotor activity is neither increased or decreased, no agitation Speech continues to demonstrate difficulty expressing himself, normal volume, not pressured I feel fine, full range of affect, not labile Alert and oriented to person, place, time Memory and concentration are fair per interview Thought process, frequent pauses, linear but brief Thought content, no stated delusions, no hallucinations, no suicidal or homicidal ideation Insight and judgment appear to be fair to intact Vitals/I&O/Wt Last Vital Signs Temp 98.1 F 03/23/21 06:00 Pulse 63 03/23/21 06:00 Resp 20 H 03/23/21 06:00 BP 96/55 03/23/21 06:00 Pulse Ox 96 03/23/21 06:00 Weight last 48 hrs Weight 63.049 kg Data NPU : 02/27/21 16:03 02/27/21 16:03 A&P Assessment and plan (1) Expressive aphasia: Status: Acute (2) Acute psychosis: Status: Acute (3) Schizophrenia: Status: Acute Qualifiers: Schizophrenia type: unspecified Qualified Code(s): F20.9 - Schizophrenia, unspecified (4) Methamphetamine dependence: Status: Acute Additional A&P Information No interval changes, pending guardianship, ongoing expressive aphasia, difficulty piecing together thoughts CONTINUE current medication, continue to monitor Involuntary Hold Information 96 Hour Hold: 96 Hour Involuntary Admission: No Attestations NPU Medical Necessity Statement*: Continues to require psychiatric hospit alization, pending guardianship, coordination for safe discharge Coding Level of Care Code Acute Electrician Technician for [facility] Diagnoses Expressive aphasia R47.01 Acute psychosis F23 Schizophrenia F20.9 Schizophrenia type: unspecified Methamphetamine dependence F15.20
[2021-03-23 14:00] VITALS: BP 101/57; PULSE 80; RESP 18; TEMP 36.7; O2SAT 95
[2021-03-23 20:08] VITALS: BP 106/62; PULSE 75; RESP 15; TEMP 36.9; O2SAT 97
[2021-03-23] MEDS: OLANZapine 10 mg TABLET PO (20:22)
[2021-03-24 06:00] VITALS: BP 106/62; PULSE 70; RESP 18; TEMP 36.7; O2SAT 97
--- NOTE | 2021-03-24 13:32 | P.PN_ITS ---
Subjective NPU Subjective: Interval history: Standing in the unit hallway, denies any interval complaints, continues to be appropriate on the unit with no reported mood symptoms or psychotic symptoms and no interval behavioral disturbances Continues to be compliant with medication and denies any medication side effects Mental Status Exam MSE Comments: Appropriately groomed and dressed, calm, cooperative, polite, good eye contact Psychomotor activity is neither increased or decreased, no agitation Speech continues to demonstrate difficulty expressing himself, normal volume, not pressured I feel good, full range of affect, not labile Alert and oriented to person, place, time Memory and concentration are fair per interview Thought process, frequent pauses, linear but brief Thought content, no stated delusions, no hallucinations, no suicidal or homicidal ideation Insight and judgment appear to be fair to intact Vitals/I&O/Wt Last Vital Signs Temp 98.0 F 03/24/21 06:00 Pulse 70 03/24/21 06:00 Resp 18 03/24/21 06:00 BP 106/62 03/24/21 06:00 Pulse Ox 97 03/24/21 06:00 Weight last 48 hrs Weight 63.049 kg Data NPU : 02/27/21 16:03 02/27/21 16:03 A&P Assessment and plan (1) Expressive aphasia: Status: Acute (2) Acute psychosis: Status: Acute (3) Schizophrenia: Status: Acute Qualifiers: Schizophrenia type: unspecified Qualified Code(s): F20.9 - Schizophrenia, unspecified (4) Methamphetamine dependence: Status: Acute Additional A&P Information No interval changes, pending guardianship, ongoing expressive aphasia, difficulty piecing together thoughts CONTINUE current medication, continue to monitor Involuntary Hold Information 96 Hour Hold: 96 Hour Involuntary Admission: No Attestations NPU Medical Necessity Statement*: Continues to require psychiatric hospitalization, pending guardianship, coordination for safe discharge Coding Level of Care Code Acute Safe Deposit Attendant for [facility] Diagnoses Expressive aphasia R47.01 Acute psychosis F23 Schizophrenia F20.9 Schizophrenia type: unspecified Methamphetamine dependence F15.20
[2021-03-24 14:00] VITALS: BP 124/65; PULSE 87; RESP 16; TEMP 37.1; O2SAT 97
[2021-03-24] MEDS: nicotine 2 mg Gum BUCCAL ×3 (16:57→21:01)
[2021-03-24] MEDS: OLANZapine 10 mg TABLET PO (20:15)
[2021-03-24 22:00] VITALS: BP 98/60; PULSE 75; RESP 18; TEMP 37.2; O2SAT 94
[2021-03-25 06:00] VITALS: BP 96/58; PULSE 60; RESP 17; TEMP 36.7; O2SAT 95
[2021-03-25] MEDS: nicotine 2 mg Gum BUCCAL ×3 (07:42→17:32)
--- NOTE | 2021-03-25 07:43 | PC.NURSE ---
0742 pt requested some susy gum.
--- NOTE | 2021-03-25 12:53 | P.PN_ITS ---
Subjective NPU Subjective: Interval history: Lying in his bed, continues to deny any interval complaints, continues to be appropriate with no interval behavioral disturbances Denies any interval mood symptoms or psychotic symptoms Continues to be compliant with medication and denies any medication side effects Mental Status Exam MSE Comments: Lying in his bed, somewhat irritated but cooperative with interview, appropriately groomed and dressed, calm, good eye contact Psychomotor activity is neither increased or decreased, no agitation Speech continues to demonstrate difficulty expressing himself, normal volume, not pressured I am okay, full range of affect, not labile Alert and oriented to person, place, time Memory and concentration are fair per interview Thought process, frequent pauses, linear but brief Thought content, no stated delusions, no hallucinations, no suicidal or homicidal ideation Insight and judgment appear to be fair to intact Vitals/I&O/Wt Last Vital Signs Temp 98.1 F 03/25/21 06:00 Pulse 60 03/25/21 06:00 Resp 17 03/25/21 06:00 BP 96/58 03/25/21 06:00 Pulse Ox 95 03/25/21 06:00 Data NPU : 02/27/21 16:03 02/27/21 16:03 A&P Assessment and plan (1) Expressive aphasia: Status: Acute (2) Acute psychosis: Status: Acute (3) Schizophrenia: Status: Acute Qualifiers: Schizophrenia type: unspecified Qualified Code(s): F20.9 - Schizophrenia, unspecified (4) Methamphetamine dependence: Status: Acute Additional A&P Information No interval changes, pending guardianship, ongoing expressive aphasia CONTINUE current medication, continue to monitor Involuntary Hold Information 96 Hour Hold: 96 Hour Involuntary Admission: No Attestations NPU 2 Medical Necessity Statement*: Continues to require psychiatric hospitalization, pending guardianship, coordination for safe discharge Coding Level of Care Code Acute Motel Operator for [facility] Diagnoses Expressive aphasia R47.01 Acute psychosis F23 Schizophrenia F20.9 Schizophrenia type: unspecified Methamphetamine dependence F15.20
[2021-03-25 13:27] VITALS: BP 111/63; PULSE 84; RESP 16; TEMP 37.1; O2SAT 96
[2021-03-25 19:29] VITALS: BP 135/72; PULSE 70; RESP 17; TEMP 37.1; O2SAT 97
[2021-03-25] MEDS: OLANZapine 10 mg TABLET PO (19:43)
[2021-03-26 06:00] VITALS: BP 102/59; PULSE 78; RESP 18; TEMP 36; O2SAT 97
[2021-03-26] MEDS: nicotine 2 mg Gum BUCCAL ×5 (09:16→17:24)
--- NOTE | 2021-03-26 11:29 | PM.NPN ---
Subjective NPU Subjective: Interval history: Patient was presented with paperwork for his court hearing for next week with regards to guardianship Denies any interval complaints No reports of any interval behavioral disturbances Denies any interval mood symptoms or psychotic symptoms Continues to be compliant with medication and denies any medication side effects Mental Status Exam MSE Comments: Unshaven, appropriately dressed, calm and cooperative with interview, good rapport, good eye contact Psychomotor activity is neither increased or decreased, no agitation Speech continues to demonstrate difficulty expressing himself, normal volume, not pressured I am fine, full range of affect, not labile Alert and oriented to person, place, time Memory and concentration are fair per interview Thought process, frequent pauses, linear but brief Thought content, no stated delusions but continues to perseverate about his circumstances and upcoming hearing, no hallucinations, no suicidal or homicidal ideation Insight and judgment appear to be fair to intact Vitals/I&O/Wt Last Vital Signs Temp 96.8 F L 03/26/21 06:00 Pulse 78 03/26/21 06:00 Resp 18 03/26/21 06:00 BP 102/59 03/26/21 06:00 Pulse Ox 97 03/26/21 06:00 Data NPU : 02/27/21 16:03 02/27/21 16:03 A&P Assessment and plan (1) Expressive aphasia: Status: Acute (2) Acute psychosis: Status: Acute (3) Schizophrenia: Status: Acute Qualifiers: Schizophrenia type: unspecified Qualified Code(s): F20.9 - Schizophrenia, unspecified (4) Methamphetamine dependence: Status: Acute Additional A&P Information No interval changes, pending guardianship with scheduled court date next week, ongoing expressive aphasia and ongoing concerns about self-care CONTINUE current medication, continue to monitor Involuntary Hold Information 96 Hour Hold: 96 Hour Involuntary Admission: No Attestations NPU Medical Necessity Statement*: Continues to require psychiatric hospitalization, pending guardianship, coordination for safe discharge Coding Level of Care Code Acute Rug Hooker for [facility] Diagnoses Expressive aphasia R47.01 Acute psychosis F23 Schizophrenia F20.9 Schizophrenia type: unspecified Methamphetamine dependence F15.20
[2021-03-26 14:00] VITALS: BP 116/68; PULSE 78; RESP 18; TEMP 36.2; O2SAT 98
[2021-03-26 19:48] VITALS: BP 98/58; PULSE 68; RESP 17; TEMP 37.2; O2SAT 96
[2021-03-26] MEDS: OLANZapine 10 mg TABLET PO (20:14)
[2021-03-27 06:00] VITALS: BP 160/61; PULSE 63; RESP 18; TEMP 36.8; O2SAT 95
--- NOTE | 2021-03-27 10:26 | P.PN_ITS ---
Subjective NPU Subjective: Interval history: Landry presents today reporting that he is doing okay. Was the first time he is been seen by this curriculum writer in 14 days and he continues to have significant expressive aphasia. He understands the communication is we discussed him having a hearing aid for his guardianship on 04/03/2021 at 9 in the morning, but he still has fragmented speech as he is unabl e to pick the word he wants only finding approximations of what he is trying to say. Reports he is eating okay and sleeping fine. Mental Status Exam MSE Comments: This is an underweight white male with hospital scrubs on with adequate grooming and eye contact. No abnormal movements. Cooperative with e toym in no acute distress. Speech was limited, but when he speaks normal rate and volume, but with pauses as he tries to find words. Mood described as good, affect euthymic. Thought process disorganized. Thought content: Patient denied suicidal or homicidal ideation, there were no delusions reported or noted, he denied auditory hallucinations. Attention and concentration appeared improving and memory was improving but none were formally tested. He was alert and oriented x3. Insight and judgment are improving, impulse control appears fair. Vitals/I&O/Wt Last Vital Signs Temp 98.2 F 03/27/21 06:00 Pulse 63 03/27/21 06:00 Resp 18 03/27/21 06:00 BP 160/61 03/27/21 06:00 Pulse Ox 95 03/27/21 06:00 Data NPU : 02/27/21 16:03 02/27/21 16:03 A&P Additional A&P Information (1) Expressive aphasia: (2) Acute psychosis: (3) Schizophrenia: (4) Methamphetamine dependence: Additional A&P Information This is a 25-year-old white male with schizophrenia and methamphetamine use who presents with improvement since last seen by this curriculum writer but with continued expressive aphasia/difficulty communicating awaiting guardianship hearing next week. 1. Continue current medication. 2. Continue every 15 minute checks for safety. 3. Encourage individual, group and milieu therapies. 4. Encourage sober living treatment after discharge at the highest level of care to which he is willing to commit. 5. He is currently quite disorganized and would not be able to participate in rehab at this very moment but also overall is functionally impaired, but improving. 6. Guardianship hearing 04/03/2021 at 9 AM. Involuntary Hold Information 96 Hour Hold: 96 Hour Involuntary Admission: No Attestations NPU Medical Necessity Statement*: Continues to require psychiatric hospitalization, pending guardianship, coordination for safe discharge Coding Level of Care Code Acute Senior Project Manager for [facility]
[2021-03-27 14:00] VITALS: BP 110/70; PULSE 95; RESP 16; TEMP 36.7; O2SAT 96
[2021-03-27] MEDS: nicotine 2 mg Gum BUCCAL ×2 (18:03→20:04)
[2021-03-27] MEDS: OLANZapine 10 mg TABLET PO (20:04)
[2021-03-27 22:00] VITALS: BP 112/75; PULSE 102; RESP 18; TEMP 36.8; O2SAT 95
[2021-03-28 06:00] VITALS: BP 109/62; PULSE 63; RESP 16; TEMP 36.9; O2SAT 95
[2021-03-28 14:00] VITALS: BP 113/64; PULSE 77; RESP 20; TEMP 36.8; O2SAT 98
[2021-03-28] MEDS: nicotine 2 mg Gum BUCCAL ×2 (17:51→19:48)
--- NOTE | 2021-03-28 18:58 | PM.NPN ---
Subjective NPU Subjective: Interval history: Landry presents today continuing with his expressive aphasia. He continues to be pleasant and without challenging staff. His level of frustration seems to have diminished as he appears to knowledge we are trying to help him. He denies any new issues or problems. Mental Status Exam MSE Comments: This is an underweight white male with hospital scrubs on with adequate grooming and eye contact. No abnormal movements. Cooperative with exam in no acute distress. Speech was limited, but when he speaks normal rate and volume, but with pauses as he tries to find words. Mood described as same, affect euthymic. Thought process disorganized. Thought content: Patient denied suicidal or homicidal ideation, there were no delusions reported or noted, he denied auditory hallucinations. Attention and concentration appeared improving and memory was improving but none were formally tested. He was alert and oriented x3. Insight and judgment are improving, impulse control appears fair. Vitals/I&O/Wt Last Vital Signs Temp 97.7 F 03/28/21 21:12 Pulse 83 03/28/21 21:12 Resp 22 H 03/28/21 21:12 BP 115/81 03/28/21 21:12 Pulse Ox 98 03/28/21 21:12 Data NPU : 02/27/21 16:03 02/27/21 16:03 A&P Additional A&P Information (1) Expressive aphasia: (2) Acute psychosis: (3) Schizophrenia: (4) Methamphetamine dependence: Additional A&P Information This is a 25-year-old white male with schizophrenia and methamphetamine use who presents with improvement since last seen by this insurance writer but with continued expressive aphasia/difficulty communicating awaiting guardianship hearing next week. 1. Continue current medication. 2. Continue every 15 minute checks for safety. 3. Encourage individual, group and milieu therapies. 4. Encourage sober living treatment after discharge at the highest level of care to which he is willing to commit. 5. He is currently quite disorganized and would not be able to participate in rehab at this very moment but also overall is functionally impaired, but improving. 6. Guardianship hearing 04/03/2021 at 9 AM. Involuntary Hold Information 96 Hour Hold: 96 Hour Involuntary Admission: No Attestations NPU Medical Necessity Statement*: Continues to require psychiatric hospitalization, pending guardianship hearing, coordination for safe discharge Coding Level of Care Code Acute Waste Specialist for [facility]
[2021-03-28] MEDS: OLANZapine 10 mg TABLET PO (20:21)
[2021-03-28 21:12] VITALS: BP 115/81; PULSE 83; RESP 22; TEMP 36.5; O2SAT 98
[2021-03-29 06:00] VITALS: BP 101/64; PULSE 70; RESP 19; TEMP 36.9; O2SAT 97
[2021-03-29 14:00] VITALS: BP 122/70; PULSE 75; RESP 18; TEMP 36.2; O2SAT 95
[2021-03-29] MEDS: nicotine 2 mg Gum BUCCAL ×4 (14:51→20:53)
--- NOTE | 2021-03-29 15:38 | PM.NPN ---
Subjective NPU Subjective: Interval history: Landry presents today with no changes continuing to struggle with his expressive aphasia. He reported that he was doing excellent and he was functioning safely identifying that he appreciates being a person of interest. We discussed the fact that his hearing was on and we are hopeful that he will get a hospital bed quickly after that hearing. Mental Status Exam MSE Comments: This is an underweight white male with hospital scrubs on with adequate grooming and eye contact. No abnormal movements. Cooperative with exam in no acute distress. Speech was limited, but when he speaks normal rate and volume, but with pauses as he tries to find words. Mood described as excellent, affect euthymic. Thought process disorganized. Thought content: Patient denied suicidal or homicidal ideation, there were no delusions reported or noted, he denied auditory hallucinations. Attention and concentration appeared improving and memory was improving but none were formally tested. He was alert and oriented x3. Insight and judgment are improving, impulse control appears fair. Vitals/I&O/Wt Last Vital Signs Temp 98.4 F 03/29/21 06:00 Pulse 70 03/29/21 06:00 Resp 19 H 03/29/21 06:00 BP 101/64 03/29/21 06:00 Pulse Ox 97 03/29/21 06:00 Data NPU : 02/27/21 16:03 02/27/21 16:03 A&P Additional A&P Information (1) Expressive aphasia: (2) Acute psychosis: (3) Schizophrenia: (4) Methamphetamine dependence: Additional A&P Information This is a 25-year-old white male with schizophrenia and methamphetamine use who presents with improvement since last seen by this telegraphic typewriter mechanic but with continued expressive aphasia/difficulty communicating awaiting guardianship hearing next week. 1. Continue current medication. 2. Continue every 15 minute checks for safety. 3. Encourage individual, group and milieu therapies. 4. Encourage sober living treatment after discharge at the highest level of care to which he is willing to commit. 5. He is currently quite disorganized and would not be able to participate in rehab at this very moment but also overall is functionally impaired, but improving. 6. Guardianship hearing 04/03/2021 at 9 AM. Involuntary Hold Information 96 Hour Hold: 96 Hour Involuntary Admission: No Attestations NPU Medical Necessity Statement*: Continues to require psychiatric hospitalization, pending guardianship hearing, coordination for safe discharge Coding Level of Care Code Acute Senior Medical Transcriptionist for [facility]
[2021-03-29] MEDS: OLANZapine 10 mg TABLET PO (20:53)
[2021-03-29 22:00] VITALS: BP 107/69; PULSE 98; RESP 18; TEMP 36.6; O2SAT 95
[2021-03-30 06:00] VITALS: BP 108/68; PULSE 86; RESP 16; TEMP 36.6; O2SAT 98
[2021-03-30] MEDS: nicotine 2 mg Gum BUCCAL ×6 (09:05→19:27)
--- NOTE | 2021-03-30 11:00 | PC.NURSE ---
1059 administered Pb gum at the pt's request, will continue to monitor.
--- NOTE | 2021-03-30 11:28 | PM.NPN ---
Subjective NPU Subjective: Interval history: Landry presented to the appointment with no changes noted. He continues to function appropriately from the standpoint of his ADLs but continues with the expressive aphasia making communication challenging as he uses approximation words. We continue to focus on his hearing on and hopefully a positive outcome and he talked much about rehab as a possibility. Mental Status Exam MSE Comments: This is an underweight white male with hospital scrubs on with adequate grooming and eye contact. No abnormal movements. Cooperative with exam in no acute distress. Speech was limited, but when he speaks normal rate and volume, but with pauses as he tries to find words. Mood described as positively positive, affect euthymic. Thought process disorganized. Thought content: Patient denied suicidal or homicidal ideation, there were no delusions reported or noted, he denied auditory hallucinations. Attention and concentration appeared improving and memory was improving but none were formally tested. He was alert and oriented x3. Insight and judgment are improving, impulse control appears fair. Vitals/I&O/Wt Last Vital Signs Temp 97.9 F 03/30/21 06:00 Pulse 86 03/30/21 06:00 Resp 16 03/30/21 06:00 BP 108/68 03/30/21 06:00 Pulse Ox 98 03/30/21 06:00 Weight last 48 hrs Weight 63.049 kg Data NPU : 02/27/21 16:03 02/27/21 16:03 A&P Additional A&P Information (1) Expressive aphasia: (2) Acute psychosis: (3) Schizophrenia: (4) Methamphetamine dependence: Additional A&P Information This is a 25-year-old white male with schizophrenia and methamphetamine use who presents with improvement since last seen by this editorial writer but with continued expressive aphasia/difficulty communicating awaiting guardianship hearing next week. 1. Continue current medication. 2. Continue every 15 minute checks for safety. 3. Encourage individual, group and milieu therapies. 4. Encourage sober living treatment after discharge at the highest level of care to which he is willing to commit. 5. He is currently quite disorganized and would not be able to participate in rehab at this very moment but also overall is functionally impaired, but improving. 6. Guardianship hearing 04/03/2021 at 9 AM. Involuntary Hold Information 96 Hour Hold: 96 Hour Involuntary Admission: No Attestations NPU Medical Necessity Statement*: Continues to require psychiatric hospitalization, pending guardianship hearing, coordination for safe discharge Coding Level of Care Code Acute Network Security Officer for [facility]
[2021-03-30 14:00] VITALS: BP 111/71; PULSE 101; RESP 18; TEMP 36.7; O2SAT 96
[2021-03-30] MEDS: OLANZapine 10 mg TABLET PO (19:27)
[2021-03-30 20:33] VITALS: BP 119/77; PULSE 80; RESP 15; TEMP 36.9; O2SAT 97
[2021-03-31 06:00] VITALS: BP 89/53; PULSE 72; RESP 16; TEMP 37.1; O2SAT 97
[2021-03-31] MEDS: nicotine 2 mg Gum BUCCAL ×6 (09:38→20:02)
[2021-03-31 14:00] VITALS: BP 121/73; PULSE 74; RESP 20; TEMP 37.3; O2SAT 97
--- NOTE | 2021-03-31 17:57 | P.PN_ITS ---
Subjective NPU Subjective: Interval history: Landry presents today with no significant changes from his normal presentation with expressive aphasia except today he was somewhat irritable and expressive of his disagreement with a plan for guardianship. Later in the conversation however he was able to identify that we were having the situation but he seemed a little frustrated today as he tried to communicate his position and the idea that there might be alternative possibilities. But he did acknowledge that there would be a court date and whoever wanted we determine what would be next. Mental Status Exam MSE Comments: This is an underweight white male with hospital scrubs on with adequate grooming and eye contact. No abnormal movements. Cooperative with exam in mild distress. Speech was limited, but when he speaks normal rate and volume, but with pauses as he tries to find words. Mood described as okay, affect irritable versus frustrated. Thought process disorganized. Thought content: Patient denied suicidal or homicidal ideation, there were no delusions reported or noted, he denied auditory hallucinations. Attention and concentration appeared improving and memory was improving but none were formally tested. He was alert and oriented x3. Insight and judgment are improving, impulse control appears fair. Vitals/I&O/Wt Last Vital Signs Temp 98.4 F 03/31/21 20:55 Pulse 96 03/31/21 20:55 Resp 17 03/31/21 20:55 BP 116/72 03/31/21 20:55 Pulse Ox 94 03/31/21 20:55 Data NPU : 02/27/21 16:03 02/27/21 16:03 A&P Additional A&P Information (1) Expressive aphasia: (2) Acute psychosis: (3) Schizophrenia: (4) Methamphetamine dependence: Additional A&P Information This is a 25-year-old white male with schizophrenia and methamphetamine use who presents with improvement since last seen by this commercial loan underwriter but with continued expressive aphasia/difficulty communicating awaiting guardianship hearing next week. 1. Continue current medication. 2. Continue every 15 minute checks for safety. 3. Encourage individual, group and milieu therapies. 4. Encourage sober living treatment after discharge at the highest level of care to which he is willing to commit. 5. He is currently quite disorganized and would not be able to participate in rehab at this very moment but also overall is functionally impaired, but improving. 6. Guardianship hearing 04/03/2021 at 9 AM. Involuntary Hold Information 96 Hour Hold: 96 Hour Involuntary Admission: No Attestations NPU Medical Necessity Statement*: Continues to require psychiatric hospitalization, pending guardianship hearing, coordination for safe discharge Coding Level of Care Code Acute Eye Surgeon for [facility]
[2021-03-31] MEDS: OLANZapine 10 mg TABLET PO (20:02)
[2021-03-31 20:55] VITALS: BP 116/72; PULSE 96; RESP 17; TEMP 36.9; O2SAT 94
[2021-04-01 06:00] VITALS: BP 104/61; PULSE 71; RESP 15; TEMP 37.1; O2SAT 98
--- NOTE | 2021-04-01 12:59 | PC.NUTR ---
Nutrition reassessment: Continue to recommend monitoring actual weight when possible, given order for double portions and questionable entries in wt record. (All wts documented are exactly 139 lbs). No dietary changes warranted at this time. See RD assessments for further details.
[2021-04-01 14:00] VITALS: BP 108/59; PULSE 75; RESP 16; TEMP 37.1; O2SAT 97
--- NOTE | 2021-04-01 15:04 | P.PN_ITS ---
Subjective NPU Subjective: Interval history: Landry presents today continuing to seem to have a little edginess about this upcoming hearing on as he contemplated his situation is going to be. He continues to have the expressive aphasia find it difficult to really articulate his concerns about moving forward. Mental Status Exam MSE Comments: This is an underweight white male with hospital scrubs on with adequate grooming and eye contact. No abnormal movements. Cooperative with exam in mild distress. Speech was limited, but when he speaks normal rate and volume, but with pauses as he tries to find words. Mood described as okay, affect irritable versus frustrated. Thought process disorganized. Thought content: Patient denied suicidal or homicidal ideation, there were no delusions reported or noted, he denied auditory hallucinations. Attention and concentration appeared improving and memory was improving but none were formally tested. He was alert and oriented x3. Insight and judgment are improving, impulse control appears fair. Vitals/I&O/Wt Last Vital Signs Temp 98.1 F 04/01/21 20:22 Pulse 92 04/01/21 20:22 Resp 16 04/01/21 20:22 BP 121/82 04/01/21 20:22 Pulse Ox 98 04/01/21 20:22 Data NPU : 02/27/21 16:03 02/27/21 16:03 A&P Additional A&P Information (1) Expressive aphasia: (2) Acute psychosis: (3) Schizophrenia: (4) Methamphetamine dependence: Additional A&P Information This is a 25-year-old white male with schizophrenia and methamphetamine use who presents with improvement since last seen by this continuity writer but with continued expressive aphasia/difficulty communicating awaiting guardianship hearing next week. 1. Continue current medication. 2. Continue every 15 minute checks for safety. 3. Encourage individual, group and milieu therapies. 4. Encourage sober living treatment after discharge at the highest level of care to which he is willing to commit. 5. He is currently quite disorganized and would not be able to participate in rehab at this very moment but also overall is functionally impaired, but improving. 6. Guardianship hearing 04/03/2021 at 9 AM. Involuntary Hold Information 96 Hour Hold: 96 Hour Involuntary Admission: No Attestations NPU Medical Necessity Statement*: Continues to require psychiatric hospitalization, pending guardianship hearing, coordination for safe discharge Coding Level of Care Code Acute Auto Technician Mechanic for Froy Lozano
[2021-04-01] MEDS: nicotine 2 mg Gum BUCCAL ×2 (18:34→20:48)
[2021-04-01 20:22] VITALS: BP 121/82; PULSE 92; RESP 16; TEMP 36.7; O2SAT 98
[2021-04-01] MEDS: OLANZapine 10 mg TABLET PO (20:48)
[2021-04-02 06:00] VITALS: BP 101/62; PULSE 68; RESP 17; TEMP 37; O2SAT 96
[2021-04-02] MEDS: nicotine 2 mg Gum BUCCAL ×7 (07:18→19:56)
[2021-04-02 14:00] VITALS: BP 128/71; PULSE 87; RESP 18; TEMP 37; O2SAT 96
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
[2021-04-02] MEDS: OLANZapine 10 mg TABLET PO (20:00)
[2021-04-02 21:18] VITALS: BP 100/63; PULSE 67; RESP 17; TEMP 36.8; O2SAT 96
[2021-04-03 03:53] VITALS: BP 97/65; PULSE 68; RESP 18; TEMP 36.9; O2SAT 96
[2021-04-03] MEDS: nicotine 2 mg Gum BUCCAL ×7 (07:31→20:31)
[2021-04-03 13:37] VITALS: BP 121/79; PULSE 100; RESP 16; TEMP 37.4; O2SAT 96
--- NOTE | 2021-04-03 16:12 | PM.NPN ---
Subjective NPU Subjective: Interval history: Landry was much less talkative today. Likely frustrated about the day of his hearing being pushed back to tomorrow. He continued to express ability to understand his circumstances but not communicate it. We reviewed the likely course of events after the hearing. He denies any specific issues. Mental Status Exam MSE Comments: This is an underweight white male with hospital scrubs on with adequate grooming and eye contact. No abnormal movements. Cooperative with exam in no acute distress. Speech was limited, but when he speaks normal rate and volume, but with pauses as he tries to find words. Mood described as fine, affect subdued. Thought process disorganized. Thought content: Patient denied suicidal or homicidal ideation, there were no delusions reported or noted, he denied auditory hallucinations. Attention and concentration appeared improving and memory was improving but none were formally tested. He was alert and oriented x3. Insight and judgment are improving, impulse control appears fair. Vitals/I&O/Wt Last Vital Signs Temp 98.4 F 04/03/21 21:08 Pulse 70 04/03/21 21:08 Resp 17 04/03/21 21:08 BP 126/73 04/03/21 21:08 Pulse Ox 97 04/03/21 21:08 Data NPU : 02/27/21 16:03 02/27/21 16:03 A&P Additional A&P Information (1) Expressive aphasia: (2) Acute psychosis: (3) Schizophrenia: (4) Methamphetamine dependence: Additional A&P Information This is a 25-year-old white male with schizophrenia and methamphetamine use who presents with improvement since last seen by this gag writer but with continued expressive aphasia/difficulty communicating awaiting guardianship hearing next week. 1. Continue current medication. 2. Continue every 15 minute checks for safety. 3. Encourage individual, group and milieu therapies. 4. Encourage sober living treatment after discharge at the highest level of care to which he is willing to commit. 5. He is currently quite disorganized and would not be able to participate in rehab at this very moment but also overall is functionally impaired, but improving. 6. Guardianship hearing tomorrow at 2 PM. Depending on the speed of the process will discharge after the hearing if we can get him to [place] by 6 or if he winds that hearing he can be discharged. Otherwise if they sandra guardianship and we can get him to [place] by 6 we will discharge him Wednesday morning. Involuntary Hold Information 96 Hour Hold: 96 Hour Involuntary Admission: No Attestations NPU Medical Necessity Statement*: Inpatient hospitalization is medically necessary and the clinically appropriate intervention at this time. We will monitor medications and make changes as indicated. He continues to need the services with the pending guardianship and will hopefully be able to discharge in the next 48 hours. Coding Level of Care Code Acute Marketing Sales Consultant for Froy Lozano
[2021-04-03] MEDS: OLANZapine 10 mg TABLET PO (20:31)
[2021-04-03 21:08] VITALS: BP 126/73; PULSE 70; RESP 17; TEMP 36.9; O2SAT 97
[2021-04-04 06:00] VITALS: BP 99/60; PULSE 73; RESP 17; TEMP 36.7; O2SAT 96
[2021-04-04] MEDS: nicotine 2 mg Gum BUCCAL ×2 (10:55→12:53)
[2021-04-04 11:47] VITALS: BP 99/60; PULSE 73; RESP 17; TEMP 36.7; O2SAT 96
--- NOTE | 2021-04-04 13:52 | PC.NURSE ---
off unit for court
--- NOTE | 2021-04-04 15:07 | PM.NDC ---
Diagnoses at Discharge Discharge Diagnosis (1) Expressive aphasia: Status: Acute (2) Acute psychosis: Status: Acute (3) Schizophrenia: Status: Acute Qualifiers: Schizophrenia type: unspecified Qualified Code(s): F20.9 - Schizophrenia, unspecified (4) Methamphetamine dependence: Status: Acute Reason for Visit Reason for Visit: MHE Brief History: History of Present Illness Landry Coates is a 25 year old male who presented to the emergency department with the following report: Chief Complaint: Psychiatric Symptoms Stated Complaint: MHE Time Seen by Provider: 02/27/21 15:47 History of Present Illness: HPI Narrative: 25 yo male brought in by [facility] department. Patient states he has not taken his Zyprexa for some time now. May try to get him quantify that he says he cannot really tell me the nurses noted within a few days. He denies any illegal substances. He states he is having auditory hallucinations denies any suicidal homicidal ideation he has been admitted to psychiatry before. MD complaint: other (acutely psychotic) Onset (ago): day(s) Duration: constant History of same: Yes Relieving factors: medication Exacerbating factors: none Context: not taking psychiatric medications Associated psychiatric symptoms: auditory hallucinations Associated symptoms: Reports auditory hallucinations; Deny visual hallucinations, delusions, depression, homicidal ideation, suicidal ideation or racing thoughts Treatments prior to arrival: none. He was admitted to the neuropsychiatric unit for definitive treatment of those issues. Landry presents today reporting that he relapsed but in general being completely thought disordered and unable to truly communicate anything about the situation. We were able to discuss that he had relapsed and we did discuss the fact that his mom was not willing to accept him back home and said that he had to go to some type treatment. We discussed the fact that [facility] in [place] and he agreed this would be a good plan. Otherwise he was unable to articulate due to his thought disorder but was able to express when he understood what was being said. An excerpt of his last note with this teletypewriter operator is included below for context. This represents the third hospitalization since he was seen by this teletypewriter operator in November. Per his 11/14/2020 [facility] inpatient psychiatric eval: History of Present Illness Landry Coates is a 25 year old male who presented to the emergency department with the following report: Chief Complaint: Psychiatric Symptoms Stated Complaint: 96 HR HOLD Time Seen by Provider: 11/13/20 17:04 Source: patient and police Mode of arrival: other (PD) Limitations: no limitations History of Present Illness: HPI Narrative: 25-year-old male patient presents to the emergency department today in custody of [facility] department under 96-hour hold. 96-hour hold was instated today, November 13, 2020. He has history of paranoid schizophrenic and PTSD with current history of methamphetamine use per mother. He was punching himself in the face and chewing the inside of his mouth to the point where 1 side was severely swollen. He was also hearing voices per statement on affidavit; patient reports hearing voices, states they are mumbling. Denies suicidal/homicidal thoughts, ideations plans upon exam. He denies illicit substance abuse. Affidavit by Geraldo Jennings stated Mr. Garcia stopped prescribed medication and starting the methamphetamine again. Family reports they are afraid of him. Afraid he is going to hurt them. They are afraid he is going to harm himself. They report he has been talking to himself There is also an additional affidavits from family members, sister eligio with similar concerns. When asked concerning swelling of the face, he denies what occurred or what caused the suspected infection to the right upper lip. Associated symptoms: Reports auditory hallucinations; Deny depression. He was admitted to the neuropsychiatric unit for definitive treatment of those issues. He presents today reporting that he does not know why he stopped taking the medication. He reports that when he takes it that it is effective but he stopped taking it sometime ago. We discussed the risk benefits and alternatives of possibly considering a long-acting injectable given his nonadherence and he was insistent on resuming the Zyprexa because he reports it is very effective if he takes it. And he understood and agreed to proceed as is documented in his note. He denies any major issues with addiction at this time. He has an abscess on his right upper lip that is causing swelling up towards his right eye stretching to the right of his nose. He was very annoyed by it and is desiring he wanted to go away. He was fairly resistant to the interview but we were able to review information from his last hospitalization and he endorsed that there have been no substantive changes since then. An excerpt is included below. Per his 12/13/2019 [facility] inpatient psychiatric eval: History of Present Illness Landry Coates is a 24 year old male The patient presents today reporting that he has a long history of psychosis as well as addiction, which is currently active. He presented to the emergency room endorsing that he had been off of his medication, and he has been struggling with his addiction. He was open to the idea of exploring a long acting injectable, with hopes that he could not worry about daily dosing, which might improve his adherence as well as his disease progression. We discussed the risks, benefits, and alternatives of resuming Invega, which he had successfully taken in the past, and he understood and agreed to proceed as is documented in this note. We reviewed his most recent evaluation which was in December of 2018, and he endorsed that the psycho-social information was valid. He is a limited historian, at this time. Per last [facility] dc summary: Discharge Summary Date of Admission: Dec 26, 2018 at 14:25 Discharge Date: Jan 09, 2019 Attending Physician: Gladis De La Fuente M.D.; Sanjay Acevedo MD Consulting Physician(s): Discharge Diagnosis: (1) Schizophrenia, paranoid type Status: Chronic (2) Methamphetamine abuse Status: Chronic (3) Noncompliance Status: Chronic Brief History: HPI: Landry Coates is a 23-year-old male who presents for his 13th admission to a psychiatric unit. [facility] in the past 24 months. I do not have access to the emergency room notes. However the according to records, the patient arrived with the police after being picked up for some sort of aggressive behavior. The patient himself denies that there was any problem. He denies that he has a psychiatric problem. He denies that he has used any type of methamphetamine or other substances. He claims that he does not know Emma Sevilla. He admits that Inge Jennings is his mother but claims that the things that she said in her affidavit are untrue. The patient is basically not communicating other than to say that he does not feel he has a problem does not feel he needs to be here. He says I want off of my medication. When asked about that medication he said he didn't know the name said that started with H. He was started on Haldol during his last admission 3 weeks ago. I began asking him questions such as hasn't helped you and were there any side effects . He reported that he never even open the bottle so he has not been taking his medication anyway. Patient then became noncommunicative and would not answer questions. Close to discharge her affidavits by Ms. Jennings and Ms. Sevilla. His mother reports that she feels he is going to kill himself or herself and her . He is not taking medications. He has been neglectful of hygiene she describes him as hypervigilant she states that they have to sleep in her bathroom door locked at night. Ms. Sevilla states that his [employer] has changed since his last admission. He is not taking his medications. I don't feel safe in my home, ever, I fear that he is going to harm me or my father and even stepmother if she has to get in his way. She describes him as dangerous, aggressive, and that I'm scared to even have to step back into the home with him there. Patient has a well-documented history of schizophrenia and drug abuse. He was hospitalized in January 2017 for 21 days, February 2017 for 5 days, June 2017 for 4 days, June 2017 3 days, July 2017 for 4 days, August 2017 for 6 days, September 2017 for 2 days, December 2017 for 6 days, December 2017 for 2 days, February 2018 for 5 days. Then today he was free of admissions for the next 8 months before being rehospitalized early last month for 3 days and at the end of last month for 3 days. He was admitted on 12/07/2018 and given the diagnoses: (1) Schizophrenia, paranoid type Status: Chronic (2) Methamphetamine abuse Status: Chronic (3) Anxiety Status: Chronic (4) Nicotine dependence, cigarettes, uncomplicated Status: Chronic (5) Noncompliance Status: Chronic He was discharged on oral Haldol. Social history: Patient is not interacting verbally providing any information. He appears to live with his mother, stepfather, and stepsister. He is unemployed. Family psychiatric history: Unknown Past Medical History Past Medical History: Patient is not cooperative with exam. Emergency room records indicate a history of heavy tobacco use but no other medical problems. Data Labs reviewed by provider: Item Value Date Time Urine Opiates Screen NEGATIVE ng/mL 12/26/18 1335 Urine Barbiturates Screen NEGATIVE ng/mL 12/26/18 1335 Urine Phencyclidine Screen NEGATIVE ng/mL 12/26/18 1335 Urine Amphetamines Screen NEGATIVE ng/mL 12/26/18 1335 Urine Benzodiazepines Screen NEGATIVE ng/mL 12/26/18 1335 Urine Cocaine Screen NEGATIVE ng/mL 12/26/18 1335 Urine Marijuana (THC) Screen NEGATIVE ng/mL 12/26/18 1335 Result Diagram: 12/26/18 1311 12/26/18 1311 document embedded image Admission Assessment/Problem List Assessment/Problem List Other Assessment/Problem List: (1) Schizophrenia, paranoid type Status: Acute (2) Methamphetamine abuse Status: Chronic (5) Noncompliance Status: Acute Hospital Course: The patient was admitted to the hospital inpatient psychiatric unit. He was provided a safe, supportive environment and encouraged to participate in individual, group, recreational, and milieu psychotherapies. Staff worked with him on positive coping skills. Medications were reviewed and adjustments were made based on the patient's symptoms and response to treatment. Initially 96 hour hold was discontinued and 21 day hold filed/improved. Patient was started on Invega titrated to 9 mg daily for psychosis/mood stabilization which he tolerated without problems. Staff attempted to obtain collateral information and network with the patient's family regarding his overall status and discharge planning. No family member answered the phone during daily calls to network with them. Affidavits were reviewed which indicated that the patient had ongoing noncompliance with medications at home, chronic self-care deficits, intermittent anger/verbal aggression issues. Family had indicated that they were wanting placement for the patient but had never failed to file for guardianship as recommended by the treatment team during numerous prior psychiatric admissions. As such, the treatment team did agree to file in favor of guardianship with a state appointed guardian. As the patient was still his own guardian, refused placement with no payor source, and had returned to his baseline functioning, he was discharged home. Care management was consulted for medication assistance and discharge planning including recommendation for an outpatient case assembler. Disposition: discharge patient home with local [facility] follow-up for medication management/therapy/case management strongly recommended. Care management to assist with discharge planning. Condition at Discharge: Stable. At time of discharge, the patient was ambulating and taking oral medications without difficulty. He was tolerating all medications without side effects or adverse reactions. He reported improvement in symptoms and resolution of mood lability, self-care failure, and auditory hallucinations. New Medications: Paliperidone Tab (Invega Tab) 9 Mg Tab.osm.24 9 MG PO DAILY, #14 TAB 2 Refills Discontinued Medications: Haloperidol Tab (Haldol Tab) 5 Mg Tablet 5 MG PO DAILY PRN for agitation/psychosis, #14 TAB 2 Refills Hydroxyzine Pamoate Cap (Vistaril Cap) 25 Mg Capsule 25 MG PO QID PRN for FOR ANXIETY, CAP Hospital Course Hospital Course Landry presented to the emergency department floridly psychotic with active methamphetamine use and concern for lethality. He was admitted to the neuropsychiatric unit for definitive treatment of those issues. On the unit he very slowly acclimated to the individual, group and milieu therapies provided. He was restarted on medication and the psychosis more or less resolved. However an expressive aphasia became very apparent making his ability to communicate his needs and desires fairly problematic. We filed for emergency guardianship which was ultimately approved and a placement was identified that he was open to. He was able to contract for safety prior to discharge. He was given a Covid vaccine initial injection prior to discharge. Of note his expressive aphasia makes it very hard to understand what he is saying. He often speaks in idioms and allergies that are hard to follow at best. If one takes considerable time you can oftentimes get to the meeting that he is trying to express. During the hospitalization, patient had routine laboratory studies which were within normal limits except for few outliers. Additionally there was a general medical evaluation which was also within normal limits and revealed no new acute processes. Discharge Summary: At the time of discharge, psychosis and lethality were denied.. Mood and anxiety were well managed. Patient endorsed a plan to avoid all drugs of abuse and follow-up with the aftercare recommendations of the treatment team. Patient was evaluated and deemed to be absent credible lethality, and had achieved the maximum benefit from an inpatient hospitalization, so was discharged. Involuntary Hold Information 96 Hour Hold: 96 Hour Involuntary Admission: No Mental Status Exam MSE Comments: This is an underweight white male with hospital scrubs on with adequate grooming and eye contact. No abnormal movements. Cooperative with exam in no acute distress. Speech was limited, but when he speaks normal rate and volume, but with pauses as he tries to find words. Mood described as fine, affect subdued. Thought process disorganized. Thought content: Patient denied suicidal or homicidal ideation, there were no delusions reported or noted, he denied auditory hallucinations. Attention and concentration appeared improving and memory was improving but none were formally tested. He was alert and oriented x3. Insight and judgment are improving, impulse control appears fair. Discharge Data Vitals: Last Vital Signs Temp 98.0 F 04/04/21 11:47 Pulse 73 04/04/21 11:47 Resp 17 04/04/21 11:47 BP 99/60 04/04/21 11:47 Pulse Ox 96 04/04/21 11:47 Discharge Plan Discharge Patient Disposition: Home Condition: Stable Prescriptions: New trazodone 50 mg Tablet 50 mg PO BEDTIME PRN (Reason: Sleep) 30 Days Qty: 30 RF: 1 olanzapine 10 mg Tablet 10 mg PO BEDTIME 30 Days Qty: 30 RF: 1 hydroxyzine pamoate 25 mg Capsule 50 mg PO Q6H PRN (Reason: Anxiety) 30 Days Qty: 120 RF: 1 Discontinued pantoprazole 40 mg tablet,delayed release (DR/EC) 40 mg PO DAILY 30 Days Qty: 30 RF: 1 olanzapine 5 mg Tablet 5 mg PO 0900,2100 30 Days Qty: 60 RF: 1 Discharge Orders: Discharge Order (Routine); Ordered 04/04/21 Ordered By: Raul Mendoza Discharge Diet: Regular Discharge Activity: Resume usual activity Patient Instructions: Opioid Safety Discharge Attestations NPU Time Spent in Discharge Care*: greater than 30 min Specific Discharge Activities: Specific discharge activities: educating patient, discussing with case technician/social workers/dc planners, documenting/other paperwork and evaluating patient/reviewing data Status at Discharge: Cognitive status at discharge: cognitively intact, Behavioral status at discharge: cooperative, Coding Level of Care Code Acute Chg FW DC note Diagnoses Expressive aphasia R47.01 Acute psychosis F23 Schizophrenia F20.9 Schizophrenia type: unspecified Methamphetamine dependence F15.20
== END 2021-04-04 15:39 | disposition home or self-care (01) | DRG 885 ==
LOC: ER 16:36 → NP 16:40
PROVIDERS: Admitting Provider Psychiatry & Neurology Psychiatry; Emergency Provider Family Medicine; Visit Provider Psychiatry & Neurology Psychiatry
DX: F23 Brief psychotic disorder (principal); F15.251 Other stimulant dependence with stimulant-induced psychotic disorder with hallucinations; R47.01 Aphasia; F17.210 Nicotine dependence, cigarettes, uncomplicated
CPT/HCPCS: 80053; 80306; 80307; 81001; 85025; 99285